=== PATIENT | male | born 1945 | race Caucasian/White ===

== ENCOUNTER 2016-10-18 17:36 | Inpatient (IN) ==
[2016-10-18] MEDS ORDERED: ONDANSETRON 4 MG/2 ML VIAL IVP PRN (19:29)
[2016-10-18] MEDS ORDERED: LIDOCAINE W/ SODIUM BICARB 0.5 ML SYR SUBD PRN (19:29)
[2016-10-18] MEDS ORDERED: Magnesium Sulfate 1gm (Premix) 1 GM/100 ML BAG IV ONE (19:29)
[2016-10-18] MEDS ORDERED: NORMAL SALINE 10 ML SYRINGE FLUSH IVP PRN (19:29)
[2016-10-18] MEDS ORDERED: HYDROmorphone 2 MG/1 ML IVP PRN (19:36)
[2016-10-18] MEDS ORDERED: NORMAL SALINE 10 ML SYRINGE FLUSH IVP ONE ×2 (19:51→21:17)
[2016-10-18] MEDS: Sodium Chloride 0.9% 1,000 ML PRIMARY IV SCH (20:00)
--- NOTE | 2016-10-18 20:04 | PDOC ---
HPI - History of Present Illness Chief Complaint: Right hip fracture secondary to fall History of Present Illness: Is a very nice 71-year-old gentleman who was accepted in transfer from [place] after he sustained a fall Dr. Henderson was also contacted and agreed to take the patient for right hip fracture repair apparently the patient tried to throw trash bag lost balance off his cane fell EMS brought him to the ER in [place] and he was found to have a non-displaced intertrochanteric fracture of the right hip. 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 and cervical spine Surgical History: Cervical fusion and lumbar fusion in February 2015 had a colonoscopy in 2009 and EGD side neck and spine surgery in 1977 and the back surgery was in 2015 he also had a stress test at that time which was normal Family History: Reviewed an Not Pertinent (Mom was alcoholic sister malignant tumor of the pharynx father had heart disease and brother with a seizure) In the Past 12 Months, Have Used or Abuse Any of the Following Substance: None Medication / Allergies Home Medications: Home Medications Medication Instructions Recorded Confirmed Type Allopurinol 300 mg PO BID tab 01/22/14 12/27/15 History Carvedilol 12.5 mg PO BID tab 01/22/14 12/27/15 History Clonidine HCl 0.1 mg PO BID tab 01/22/14 12/27/15 History Doxazosin Mesylate 4 mg PO DAILY tab 01/22/14 12/27/15 History Magnesium [Mag-Tab Sr] 84 mg PO TID tab 01/22/14 12/27/15 History Omeprazole 40 mg PO DAILY cap 01/22/14 12/27/15 History Pravastatin Sodium 20 mg PO DAILY tab 01/22/14 12/27/15 History Acetaminophen [Tylenol] 500 mg PO TID PRN tab 12/07/15 12/27/15 History Diclofenac Sodium 50 mg PO BID tab 12/07/15 12/27/15 History Docusate Sodium [Colace] 100 mg PO DAILY cap 12/07/15 12/27/15 History Furosemide 2 tab PO BID tab 12/07/15 12/27/15 History Iron 18 mg PO QD tab 12/07/15 12/27/15 History [place]-3 Fatty Acids/Fish Oil 1 each PO QD cap 12/07/15 12/27/15 History [[place] 3 1,000 mg Softgel] Vitamin B Complex 1 each PO QD tab 12/07/15 12/27/15 History Hydrocodone Bit/Acetaminophen 1 - 2 tab PO Q4H PRN 12/27/15 12/27/15 History [Hydrocodon-Acetaminophen 5-325] Allergies/Adverse Reactions: Allergies 3 Allergy/AdvReac Type Severity Reaction Status Date / Time No Known Allergies Allergy Unverified 01/19/16 09:20 Review of Systems - Review of Systems All Systems: Reviewed & No Additional Complaints Except as Stated - Integumentary Integumentary: DENIES: Negative System Review, Rash, Superficial Wound, Laceration, Puncture Wound, Foreign Body, Itching, Dryness, Ulcers, Color Changes, Moles, Hair Loss, Hirsutism, Other, See HPI - Ear/Nose Exam Ear/Nose Exam: DENIES: Negative System Review, Decreased Hearing, Tinnitus, Otalgia, Sinus Pain, Rhinorrhea, Congestion, Anosmia, Epistaxis, Other, See HPI - Respiratory Respiratory: DENIES: Negative System Review, Cough, Sputum, Dyspnea At Rest, Dyspnea with Exertion, Pleuritic Pain, Hemoptysis, Wheezing, Other, See HPI - Cardiovascular Cardiovascular: DENIES: Negative System Review, Chest Pain, Edema, Syncope, Palpitations, Orthopnea, Paroxysmal Nocturnal Dyspnea, Other, See HPI - Gastrointestinal Gastrointestinal / Abdominal: DENIES: Negative System Review, Nausea, Vomiting, Diarrhea, Constipation, Abdominal Pain, Bloody Stool, Poor Appetite, Heartburn, Regurgitation, Bloating, Lactose Intolerance, Melena, Bright Red Blood per Rectum, Other, See HPI - Genitourinary Genitourinary: DENIES: Negative System Review, Pain, Burning, Hematuria, Incontinence, Urgency, Hesitant Stream, Decreased Stream, Nocutria, Discharge, Sexual Dysfunction, Other, See HPI - Neurological Neurologic: DENIES: Negative System Review, Headache, Numbness/Paresthesia, Tremors, Weakness, Seizures, Head Trauma, LOC, Dizziness, Confusion, Memory Loss , Difficulty Walking, Incoordination, Other, See HPI Exam - General General Appearance: No Acute Distress, Cooperative - Head Head Exam: Normal Inspection, Normocephalic, Atraumatic - Eye Eye Exam: POSITIVE: Normal Appearance, PERRL, EOMI - Respiratory Respiratory Exam: POSITIVE: Clear to Auscultation - Bilaterally, Breathing Non Labored, Normal To Percussion, Normal to Percussion and Palpation. NEGATIVE: Rales, Rhonci, Crackles - Cardiovascular Cardiovascular Exam: POSITIVE: RRR, No Murmur, No Clicks, No Gallops, No Rubs. NEGATIVE: Bradycardia - GI/Abdominal GI/Abdominal Exam: POSITIVE: Normal Bowel Sounds, Non Tender, Non Distended, No Masses. NEGATIVE: Guarding, Rebound - Extremities Extremities Exam: POSITIVE: No Clubbing Present, No Edema Present Assessment and Plan - Patient Problems (1) Closed right hip fracture Current Visit: Yes Status: Acute Code(s): S72.001A - Fracture of unspecified part of neck of right femur, initial encounter for closed fracture (2) Hypertension Current Visit: Yes Status: Acute Code(s): I10 - Essential (primary) hypertension (3) Diabetes Current Visit: Yes Status: Acute Code(s): E11.9 - Type 2 diabetes mellitus without complications (4) Chronic hyponatremia Current Visit: Yes Status: Acute Code(s): E87.1 - Hypo-osmolality and hyponatremia - Assessment / Plan Additional Assessment/Plan Details: Patient was admitted Dr. Henderson notified of patient's arrival he had asked about a CT scan of his right hip with 3-D reconstruction the electrical cad technician is not here to perform this test tonight they will have to be done tomorrow we will defer to him he to his hypertension continue usual meds. In regard to his anemia he does not have any bloody stools noticed any blood in his stools we will rehydrate him and check his CBC in the morning Acute renal failure most likely prerenal we'll start normal saline 75 an hour repeat labs in the morning. Patient is DO NOT RESUSCITATE Pain control with dilaudid Diabetes check sugars before meals and at bedtime Discuss case with nursing son and patient
[2016-10-18 20:33] LABS: BASOPHILS # (AUTO) 0.03 10*3/UL; BASOPHILS % (AUTO) 0.2 % (0-1); EOSINOPHILS # (AUTO) 0.07 10*3/UL; EOSINOPHILS % (AUTO) 0.5 % (0-8); Hematocrit [HCT] 28.2 % (42.0-52.0); Hemoglobin [HGB] 9.5 g/dL (14.0-18.0); LYMPHOCYTES # (AUTO) 1.59 10*3/uL; MEAN CORPUSCULAR HEMOGLOBIN 30.4 PG (27-31); MEAN CORPUSCULAR HGB CONC 33.7 g/dL (33-37); MEAN CORPUSCULAR VOLUME 90.1 FL (80-90); MEAN PLATELET VOLUME 8.7 FL (7.4-12.2); MONOCYTES # (AUTO) 1.33 10*3/UL (0.3-0.8); MONOCYTES % (AUTO) 8.6 % (5-15); NEUTROPHILS # (AUTO) 12.36 10*3/UL; NEUTROPHILS % (AUTO) 80.1 % (50-80); RED BLOOD COUNT 3.13 10^6/uL (4.70-6.10)
[2016-10-18 20:34] LABS: PLATELET MORPHOLOGY COMMENT NORMAL MORPHOLOGY (NORM); RBC MORPHOLOGY COMMENT NORMAL MORPHOLOGY (NORM); WBC MORPHOLOGY COMMENT NORMAL MORPHOLOGY (NORM)
[2016-10-18 20:43] LABS: BLOOD UREA NITROGEN 18 mg/dL (7-22); MAGNESIUM 1.6 mg/dL (1.6-2.4); SERUM ALBUMIN 3.9 g/dL (3.5-4.8)
[2016-10-18] MEDS ORDERED: Pravastatin Tab 20 MG TAB PO SCH (21:00)
[2016-10-18] MEDS ORDERED: CloNIDine Tab 0.1 MG TABLET PO SCH (21:00)
[2016-10-18] MEDS ORDERED: HYDROmorphone 2 MG/1 ML IVP ONE (21:04)
[2016-10-18] MEDS: CARVEDILOL 12.5 MG TABLET PO SCH (21:33)
--- NOTE | 2016-10-18 21:56 | CONSULT ---
Consult Note - Consult Consult Date: 10/18/16 Primary Care Provider: ANDRES SUÁREZ - History of Present Illness History of Present Illness: Mr. Hodge is a 71-year-old male seen for a right intertrochanteric peritrochanteric hip fracture. He was admitted this evening by Dr. Mcmullen. I have had a chance to review his x-rays of the right hip. These were taken and [place]. Patient slipped and fell while trying to take the garbage out. On exam the patient's right lower extremity is slightly externally rotated. Some swelling throughout the thigh. He has what seems to be a expected amount of discomfort. 5 pounds of [place] traction is currently pending. X-ray review shows that appears to be an intertrochanteric fracture of the right hip. The lesser trochanter is fractured as well. Possible fracture of the greater trochanter. CAT scan of the hip is pending at the time of this dictation. Impression: Right intertrochanteric hip fracture. Plan: Plan is to proceed with fixation of the right hip fracture tomorrow around 1300 hrs. Plan on using a Jackson intramedullary hip screw. The implants will be present. I have a compression hip screw available should I needed. Consent will be obtained. The risks were discussed with the patient including the possibly infection malunion nonunion blood clot and even . Patient apparently has a DO NOT RESUSCITATE order on the chart. Patient's son was present at the time of our discussion. CAT scan of the right hip will be performed in the morning. 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 and cervical spine Surgical History: Cervical fusion and lumbar fusion in February 2015 had a colonoscopy in 2009 and EGD side neck and spine surgery in 1977 and the back surgery was in 2015 he also had a stress test at that time which was normal Family History: Reviewed an Not Pertinent (Mom was alcoholic sister malignant tumor of the pharynx father had heart disease and brother with a seizure) In the Past 12 Months, Have Used or Abuse Any of the Following Substance: None Medication / Allergies Home Medications: Home Medications Medication Instructions Recorded Confirmed Type Allopurinol 300 mg PO BID tab 01/22/14 12/27/15 History Carvedilol 12.5 mg PO BID tab 01/22/14 12/27/15 History Clonidine HCl 0.1 mg PO BID tab 01/22/14 12/27/15 History Doxazosin Mesylate 4 mg PO DAILY tab 01/22/14 12/27/15 History Magnesium [Mag-Tab Sr] 84 mg PO TID tab 01/22/14 12/27/15 History Omeprazole 40 mg PO DAILY cap 01/22/14 12/27/15 History Pravastatin Sodium 20 mg PO DAILY tab 01/22/14 12/27/15 History Acetaminophen [Tylenol] 500 mg PO TID PRN tab 12/07/15 12/27/15 History Diclofenac Sodium 50 mg PO BID tab 12/07/15 12/27/15 History Docusate Sodium [Colace] 100 mg PO DAILY cap 12/07/15 12/27/15 History Furosemide 2 tab PO BID tab 12/07/15 12/27/15 History Iron 18 mg PO QD tab 12/07/15 12/27/15 History [place]-3 Fatty Acids/Fish Oil 1 each PO QD cap 12/07/15 12/27/15 History [[place] 3 1,000 mg Softgel] Vitamin B Complex 1 each PO QD tab 12/07/15 12/27/15 History Hydrocodone Bit/Acetaminophen 1 - 2 tab PO Q4H PRN 12/27/15 12/27/15 History [Hydrocodon-Acetaminophen 5-325] Allergies/Adverse Reactions: Allergies 3 Allergy/AdvReac Type Severity Reaction Status Date / Time No Known Allergies Allergy Unverified 01/19/16 09:20 Exam - Vitals Vital Signs: Vital Signs Temperature 98.4 F Pulse Rate [Pulse Oximeter] 72 Respiratory Rate 20 Blood Pressure [Right Arm] 145/87 Pulse Ox 92 Oxygen Delivery Method Room Air Height 5 ft 9 in Weight 200 lb Results - Labs CBC and BMP: 10/18/16 20:30 10/18/16 20:30
[2016-10-18] MEDS: HYDROmorphone 2 MG/1 ML IVP PRN (23:50)
[2016-10-19] MEDS: HYDROmorphone 2 MG/1 ML IVP PRN ×5 (02:51→19:13)
[2016-10-19] MEDS: Sodium Chloride 0.9% 1,000 ML PRIMARY IV SCH (04:15)
[2016-10-19 04:45] LABS: BASOPHILS # (AUTO) 0.05 10*3/UL; BASOPHILS % (AUTO) 0.4 % (0-1); EOSINOPHILS # (AUTO) 0.31 10*3/UL; EOSINOPHILS % (AUTO) 2.8 % (0-8); Hematocrit [HCT] 23.9 % (42.0-52.0); LYMPHOCYTES # (AUTO) 1.55 10*3/uL; MEAN CORPUSCULAR HEMOGLOBIN 30.5 PG (27-31); MEAN CORPUSCULAR HGB CONC 33.5 g/dL (33-37); MEAN CORPUSCULAR VOLUME 91.2 FL (80-90); MEAN PLATELET VOLUME 9.9 FL (7.4-12.2); MONOCYTES # (AUTO) 1.08 10*3/UL (0.3-0.8); MONOCYTES % (AUTO) 9.6 % (5-15); NEUTROPHILS # (AUTO) 8.23 10*3/UL; NEUTROPHILS % (AUTO) 73.1 % (50-80); RED BLOOD COUNT 2.62 10^6/uL (4.70-6.10)
[2016-10-19 04:49] LABS: BILIRUBIN,URINE NEGATIVE (NEG); CLARITY,URINE CLEAR (CLEAR); COLOR,URINE YELLOW (Y); GLUCOSE, URINE (UA) NEGATIVE (NEG); NITRATE,URINE NEGATIVE (NEG); OCCULT BLOOD,URINE NEGATIVE (NEG); PROTEIN,URINE NEGATIVE (NEG); UROBILINOGEN,URINE 0.2 EU/dL (0.2)
[2016-10-19 04:54] LABS: PLATELET MORPHOLOGY COMMENT NORMAL MORPHOLOGY (NORM); RBC MORPHOLOGY COMMENT NORMAL MORPHOLOGY (NORM); WBC MORPHOLOGY COMMENT NORMAL MORPHOLOGY (NORM)
[2016-10-19 04:55] LABS: URINE SAMPLE TYPE CLEAN CATCH URINE
[2016-10-19 04:55] LABS: BLOOD UREA NITROGEN 15 mg/dL (7-22); BUN/CREATININE RATIO 16.66 (6-20)
[2016-10-19] MEDS ORDERED: NORMAL SALINE 10 ML SYRINGE FLUSH IVP ONE ×2 (06:35→09:00)
[2016-10-19] MEDS ORDERED: diphenhydrAMINE 25 MG CAPSULE PO ONE (08:35)
[2016-10-19] MEDS ORDERED: ACETAMINOPHEN 325 MG TABLET PO ONE (08:35)
[2016-10-19] MEDS ORDERED: methylPREDNISolone 125 MG/2 ML VIAL IVP ONE (08:35)
[2016-10-19] MEDS ORDERED: ACETAMINOPHEN 325 MG TABLET PO SCH (08:45)
[2016-10-19] MEDS ORDERED: ACETAMINOPHEN 500 MG TABLET PO ONE (08:45)
[2016-10-19] MEDS ORDERED: Magnesium Sulfate 1gm (Premix) 1 GM/100 ML BAG IV ONE (08:47)
[2016-10-19] MEDS: CARVEDILOL 12.5 MG TABLET PO SCH ×2 (08:54→21:30)
[2016-10-19] MEDS ORDERED: DOXAZOSIN 2 MG TABLET PO SCH (09:00)
--- NOTE | 2016-10-19 09:02 | EKG ---
[address] [place] [id number] Measurements Intervals [place] Rate: 61 P: 56 [place]: 264 QRS: -21 QRSD: 101 T: 10 QT: 406 QTc: 409 Interpretive Statements SINUS RHYTHM WITH FIRST DEGREE AV BLOCK WITH OCCASIONAL VENTRICULAR PREMATURE COMPLEXES INFERIOR MYOCARDIAL INFARCTION [40+ ms Q WAVE AND/OR ST/T ABNORMALITY IN II/aVF], PROBABLY OLD No previous ECG available for comparison Electronically Signed On 10-19-16 12:22:35 MDT by Keven Bryson MD [email or web address]
[2016-10-19] MEDS ORDERED: LIDOCAINE HCL 2 % 10 ML JELLY URO-JECT TOPICAL ONE (09:17)
--- NOTE | 2016-10-19 09:31 | DI ---
CT Pelvis WO Contrast, CT 3D Rendering w/Image Proc,10/19/2016 7:00 AM: Clinical History: Right hip fracture. Previous Exam: None at this facility. Findings: Multiple helically acquired CT images are obtained through the pelvis without contrast. There is a sl ightly comminuted right intertrochanteric fracture. There is avulsion of the lesser trochanter with 2.6 cm of superior displacement of the avulsed fragme nt. Degenerative changes are noted of the hip joint. There is degenerative endplate changes noted and vacuum disc phenomenon at multiple levels. There is significant facet hypertrophy there is also a right-sided pars defect noted and there is gra de 1 anterolisthesis of L5 on S1. There are laminectomies at the L3 and L4 levels. Peripheral vascular calcifications are noted. Impression: 1. Slightly comminuted intertrochanteric fracture of the right hip. 2. Slightly displaced right lesser trochanteric avulsion with 2.6 cm of superior displacement.
--- NOTE | 2016-10-19 12:26 | PDOC(PROG) ---
Interval History: Patient is doing great and has no complaints no chest pain nausea or vomiting he has a 5 pound traction of his right leg for his right hip fracture he did require blood because of drop in hemoglobin of 8 after hydration Objective : Data - Labs CBC and BMP: 10/19/16 04:11 10/19/16 04:11 Objective : Exam - General General Appearance: Cooperative - Head Head Exam: Normal Inspection, Normocephalic, Atraumatic - Respiratory Respiratory Exam: Clear to Auscultation - Bilaterally, Breathing Non Labored, Normal To Percussion, Normal to Percussion and Palpation - Cardiovascular Cardiovascular Exam: RRR, No Murmur, No Clicks, No Gallops - GI/Abdominal GI/Abdominal Exam: Normal Bowel Sounds, Soft - Extremities Extremities Exam: No Clubbing Present, No Edema Present Assessment and Plan - Patient Problems (1) Closed right hip fracture Current Visit: Yes Status: Acute Code(s): S72.001A - Fracture of unspecified part of neck of right femur, initial encounter for closed fracture (2) Hypertension Current Visit: Yes Status: Acute Code(s): I10 - Essential (primary) hypertension (3) Diabetes Current Visit: Yes Status: Acute Code(s): E11.9 - Type 2 diabetes mellitus without complications (4) Chronic hyponatremia Current Visit: Yes Status: Acute Code(s): E87.1 - Hypo-osmolality and hyponatremia - Assessment / Plan Additional Assessment/Plan Details: #1 right hip fracture deferred to orthopedic surgery patient is scheduled for surgery this afternoon. #2 anemia I don't have a source for his low hemoglobin I did speak to Dr. Flynn which showed things that might be some mild blood in his thigh nevertheless to optimize him for surgery we transfused 2 units of packed red blood cells premedicated him and also given him Lasix in between units. He is also on 2 alpha blockers and beta wesley and Lasix at home there is no history of congestive heart failure patient does not know why he is on a 4 blood pressure medications. His EKG shows sinus rhythm with first-degree AV block Q-wave in the inferior leads. The patient states that he did have a stress test when he had lower back surgery last year and that was negative per him I was not able to find it in the records. The patient has no chest pain nausea or vomiting first-degree AV block on EKG and negative troponin he is at the low to moderate risk for perioperative complication considering his inferior Q waves and the and the inferior leads hyponatremia which we are trying to correct he will proceed with surgery since he has a broken hip and hopefully he will do fine we will see him postop
[2016-10-19 12:54] LABS: BLOOD UREA NITROGEN 15 mg/dL (7-22); BUN/CREATININE RATIO 16.66 (6-20); SERUM ALBUMIN 3.6 g/dL (3.5-4.8)
[2016-10-19] MEDS ORDERED: ROCURONIUM 10 MG/1 ML - 5 ML VIAL IVP ONE (13:03)
[2016-10-19] MEDS ORDERED: SUCCINYLCHOLINE CHLORIDE 20 MG/1 ML - 10 ML ONE (13:04)
[2016-10-19] MEDS ORDERED: MIDAZOLAM 5 MG/1 ML ONE (13:05)
[2016-10-19] MEDS ORDERED: fentaNYL Inj 100 MCG/2 ML VIAL ONE (13:05)
[2016-10-19] MEDS ORDERED: Propofol 200 MG/20 ML VIAL IV ONE (13:06)
[2016-10-19] MEDS ORDERED: KETAMINE 100 MG/1 ML - 5 ML ONE (13:06)
[2016-10-19] MEDS ORDERED: Lactated Ringers 1,000 ML PRIMARY IV ONE (13:08)
[2016-10-19 13:49] LABS: BASOPHILS # (AUTO) 0.02 10*3/UL; BASOPHILS % (AUTO) 0.2 % (0-1); EOSINOPHILS # (AUTO) 0.02 10*3/UL; EOSINOPHILS % (AUTO) 0.2 % (0-8); Hematocrit [HCT] 28.3 % (42.0-52.0); Hemoglobin [HGB] 9.4 g/dL (14.0-18.0); LYMPHOCYTES # (AUTO) 0.88 10*3/uL; MEAN CORPUSCULAR HEMOGLOBIN 30.3 PG (27-31); MEAN CORPUSCULAR HGB CONC 33.2 g/dL (33-37); MEAN CORPUSCULAR VOLUME 91.3 FL (80-90); MEAN PLATELET VOLUME 9.3 FL (7.4-12.2); MONOCYTES # (AUTO) 0.26 10*3/UL (0.3-0.8); NEUTROPHILS # (AUTO) 12.12 10*3/UL; NEUTROPHILS % (AUTO) 90.8 % (50-80)
[2016-10-19] MEDS ORDERED: ceFAZolin Inj 2gm (Premix) 2 GM/50 ML BAG IV ONE (13:53)
[2016-10-19 14:17] LABS: PLATELET MORPHOLOGY COMMENT NORMAL MORPHOLOGY (NORM); RBC MORPHOLOGY COMMENT NORMAL MORPHOLOGY (NORM); WBC MORPHOLOGY COMMENT SEE COMMENTS (NORM)
[2016-10-19] MEDS ORDERED: Sodium Chloride 0.9% 2,000 ML ONE (15:29)
[2016-10-19] MEDS ORDERED: HEPARIN 10,000 UNIT/1 ML ONE (15:30)
[2016-10-19] MEDS ORDERED: Sodium Chloride 0.9% 500 ML ONE (17:02)
[2016-10-19] MEDS ORDERED: BUPivacaine Inj 0.5% PF (5mg/ml) 10ml vial ONE (17:19)
--- NOTE | 2016-10-19 18:30 | CRNA.PROGR ---
Anesthesia Time - - Start date: 10/19/16 End date: 10/19/16 - Procedure/Recovery Time Anesthesia : Time In: 13:58 Anesthesia : Time Out: 18:13 Anesthesia : Total Time: 255 - Total Anesthesia Time Total Anesthesia Time (minutes): 255 - Other Weight: 90.718 kg Height: 5 ft 9 in Body Mass Index (BMI): 29.5 Physical Status: P3 (ASCVD, HTN,DM type 2, Anemia)
--- NOTE | 2016-10-19 18:31 | CRNA.PROGR ---
Anesthesia Recovery Phase I - Post Anesthesia Evaluation Patient's Condition on Arrival in Phase I: Stable Patient's Condition on Arrival in Phase II: Stable Pain Level: 3
[2016-10-19] MEDS ORDERED: ATROPINE SULFATE 0.4 MG/1 ML VIAL IVP PRN (18:43)
[2016-10-19] MEDS ORDERED: NORMAL SALINE 10 ML SYRINGE FLUSH IVP PRN (18:43)
[2016-10-19] MEDS ORDERED: Ondansetron ODT Tab 8 MG TAB PO PRN (18:43)
[2016-10-19] MEDS ORDERED: ONDANSETRON 4 MG/2 ML VIAL IVP PRN ×2 (18:43→19:38)
[2016-10-19] MEDS ORDERED: fentaNYL Inj 100 MCG/2 ML VIAL IVP PRN (18:43)
[2016-10-19] MEDS ORDERED: Lactated Ringers 1,000 ML PRIMARY IV SCH (18:45)
[2016-10-19] MEDS ORDERED: HYDROmorphone 2 MG/1 ML ONE (18:45)
--- NOTE | 2016-10-19 18:48 | ORTHO.OP ---
- - -: See Dictated Operative Report Surgery Date: 10/19/16 Preoperative Diagnosis: intertrochanteric hip fracture right Postoperative Diagnosis: same Surgeon: Anita Henderson MD [employer] Worker: LETTY Payan Anesthesia Provider: Lidia Lewis CRNA Anesthesia Type: General Estimated Blood Loss (mL): 400 Fluids: 1400 crystalloid. 2 units prbcs. 250 cc of orthopat Operative Summary: to recovery room stable
[2016-10-19] MEDS ORDERED: MORPHINE SULFATE 2 MG/1 ML IVP PRN (19:38)
[2016-10-19] MEDS ORDERED: FUROSEMIDE 10 MG/1 ML - 2 ML VIAL IVP ONE (20:41)
[2016-10-19] MEDS: oxyCODONE/APAP 7.5/325 Tab 1 TAB TAB PO PRN ×2 (21:27→23:02)
[2016-10-19] MEDS: Pravastatin Tab 20 MG TAB PO SCH (21:30)
[2016-10-19] MEDS: DOCUSATE 100 MG CAPSULE PO SCH (21:30)
[2016-10-19] MEDS: D5-1/2NS + 20mEq KCL 1,000 ML PRIMARY IV SCH (21:39)
[2016-10-19] MEDS: ceFAZolin Inj 2gm (Premix) 2 GM/50 ML BAG IV SCH (23:51)
[2016-10-20] MEDS: oxyCODONE/APAP 7.5/325 Tab 1 TAB TAB PO PRN ×4 (03:54→19:29)
[2016-10-20 04:50] LABS: BASOPHILS # (AUTO) 0.01 10*3/UL; BASOPHILS % (AUTO) 0.1 % (0-1); EOSINOPHILS # (AUTO) 0.01 10*3/UL; EOSINOPHILS % (AUTO) 0.1 % (0-8); Hematocrit [HCT] 25.8 % (42.0-52.0); Hemoglobin [HGB] 8.6 g/dL (14.0-18.0); LYMPHOCYTES # (AUTO) 1.42 10*3/uL; MEAN CORPUSCULAR HEMOGLOBIN 29.9 PG (27-31); MEAN CORPUSCULAR HGB CONC 33.3 g/dL (33-37); MEAN CORPUSCULAR VOLUME 89.6 FL (80-90); MEAN PLATELET VOLUME 10.3 FL (7.4-12.2); MONOCYTES # (AUTO) 1.55 10*3/UL (0.3-0.8); MONOCYTES % (AUTO) 9.6 % (5-15); NEUTROPHILS # (AUTO) 13.06 10*3/UL; RED BLOOD COUNT 2.88 10^6/uL (4.70-6.10)
[2016-10-20 05:04] LABS: BLOOD UREA NITROGEN 18 mg/dL (7-22)
[2016-10-20 05:07] LABS: PLATELET MORPHOLOGY COMMENT NORMAL MORPHOLOGY (NORM); RBC MORPHOLOGY COMMENT NORMAL MORPHOLOGY (NORM); WBC MORPHOLOGY COMMENT NORMAL MORPHOLOGY (NORM)
--- NOTE | 2016-10-20 07:16 | CRNA.PROGR ---
Anesthesia Note - Progress Notes Anesthesia Progress Note: CBC and BMP 10/20/16 03:53 10/20/16 03:53 Awake and alert. Sitting up being assessed by nursing staff Cheerful, mentation clear and apropriate. Urine output per pacheco light connor and adequate amount. Denies nausea. States pain relief is acceptable. Still anemic by labs but hemodynamically stable per mentation and vital signs. Vital Signs (24 hrs) Temp Pulse Pulse Resp BP BP BP 10/20/16 04:34 10/20/16 03:49 99.0 F 76 20 119/82 10/20/16 01:00 99.6 F 54 L 18 125/75 10/19/16 22:00 99.1 F 84 18 106/66 10/19/16 21:00 99.1 F 83 18 140/86 10/19/16 20:00 99.1 F 78 123/59 10/19/16 19:20 98.3 F 73 14 129/81 10/19/16 19:10 98 F 73 14 153/108 10/19/16 19:00 98 F 77 20 138/88 10/19/16 18:50 77 14 153/103 10/19/16 18:40 97.7 F 74 14 153/93 10/19/16 18:30 71 14 185/81 10/19/16 18:25 64 14 170/91 10/19/16 18:20 97.4 F 68 10 L 159/81 10/19/16 18:10 97.4 F 58 L 10 L 148/102 10/19/16 15:30 97.5 F 58 L 10 L 120/78 10/19/16 14:37 98.2 F 57 L 14 115/74 10/19/16 13:55 98.6 F 71 15 156/85 10/19/16 13:53 98.5 F 69 16 148/78 10/19/16 13:35 98.5 F 66 15 146/84 10/19/16 13:26 99 F 64 12 144/84 10/19/16 13:25 99.0 F 63 13 146/84 10/19/16 13:00 98.6 F 67 14 151/81 10/19/16 12:11 99.1 F 66 18 121/49 10/19/16 11:39 98.6 F 68 17 142/65 10/19/16 11:29 99.6 F 65 18 110/56 10/19/16 11:14 98.6 F 65 17 142/65 10/19/16 11:00 66 10/19/16 10:59 99.6 F 60 18 142/65 10/19/16 10:58 99.4 F 64 18 134/90 10/19/16 10:43 98.1 F 70 18 146/80 Pulse Ox 10/20/16 04:34 94 10/20/16 03:49 96 10/20/16 01:00 95 10/19/16 22:00 96 10/19/16 21:00 97 10/19/16 20:00 98 10/19/16 19:20 97 10/19/16 19:10 97 10/19/16 19:00 98 10/19/16 18:50 99 10/19/16 18:40 97 10/19/16 18:30 97 10/19/16 18:25 96 10/19/16 18:20 96 10/19/16 18:10 96 10/19/16 15:30 98 10/19/16 14:37 95 10/19/16 13:55 95 10/19/16 13:53 91 10/19/16 13:35 91 10/19/16 13:26 96 10/19/16 13:25 96 10/19/16 13:00 95 10/19/16 12:11 96 10/19/16 11:39 96 10/19/16 11:29 93 10/19/16 11:14 93 10/19/16 11:00 10/19/16 10:59 92 10/19/16 10:58 95 10/19/16 10:43 95 Will need more RBC's nest couple days most likely. No apparent anesthetic difficulties.
[2016-10-20] MEDS: D5-1/2NS + 20mEq KCL 1,000 ML PRIMARY IV SCH (07:46)
--- NOTE | 2016-10-20 08:30 | ORTHO.PROG ---
Last Taken Vital Signs: Vital Signs - Last Taken Temperature 98.8 F 10/20/16 08:20 Pulse Rate 84 10/20/16 08:20 Respiratory Rate 16 10/20/16 08:20 Blood Pressure 123/77 10/20/16 08:20 Pulse Ox 94 10/20/16 08:20 Subjective: Mr. Hodge is actually looking pretty good this morning. He sitting up in bed with much better color. He is not reporting much pain. Nurses changed his dressing earlier this morning on his hip. Objective: Vital signs are stable patient is afebrile. Right lower extremity is well aligned. Dressings are intact. Hemoglobin and hematocrit 8.6 and 25.8. Assessment: Impression is doing well postop day 1 from fixation of right hip fracture. Patient's bone was extremely soft. Plan: Plan is to have in transfer from bed to chair and chair to bed. Keep him toe- touch weightbearing for probably 6-8 weeks. I am concerned about the soft nature of his bone. I will check on him later today.
[2016-10-20] MEDS: ceFAZolin Inj 2gm (Premix) 2 GM/50 ML BAG IV SCH (08:39)
[2016-10-20] MEDS: DOCUSATE 100 MG CAPSULE PO SCH ×2 (08:39→21:40)
[2016-10-20] MEDS: CARVEDILOL 12.5 MG TABLET PO SCH ×2 (08:39→21:40)
--- NOTE | 2016-10-20 08:47 | DI ---
XR HIP COMPLETE MIN 2VW U/L,10/19/2016 6:26 PM: Clinical History: The projection internal fixation of the right hip. Previous Exam: None at this facility. Findings: AP and crosstable lateral views of the right hip demonstrate a new dynamic compression screw. There i s near-anatomic alignment of the right intertrochanteric fracture. There is a stable avulsion of the lesser trochanter. Impression: Successful dynamic screw fixation of a right intertrochanteric fracture.
--- NOTE | 2016-10-20 10:54 | PDOC(PROG) ---
Interval History: He is doing great today postop day 1 he does have some right rib cage pain that he noticed while he moves may be suspicious that he sustained this during his fall we will follow-up with chest x-ray. Objective : Data - Labs CBC and BMP: 10/20/16 03:53 10/20/16 03:53 Objective : Exam - General General Appearance: Cooperative - Respiratory Respiratory Exam: Clear to Auscultation - Bilaterally, Breathing Non Labored, Normal To Percussion - Cardiovascular Cardiovascular Exam: RRR, No Murmur, No Clicks - GI/Abdominal Additional GI/Abdominal Exam Details: (The lower right rib cage pain on palpation Assessment and Plan - Patient Problems (1) Closed right hip fracture Current Visit: Yes Status: Acute Comment: Postop day 1 deferred to orthopedic surgery PT and OT I did speak with the patient he said he will continue PT and OT and then would like to transition to the [facility] for inpatient PT and OT because his house is right next to it also family members in the room son which agreed with the his father I let nursing know Code(s): S72.001A - Fracture of unspecified part of neck of right femur, initial encounter for closed fracture (2) Hypertension Current Visit: Yes Status: Acute Comment: Controlled Code(s): I10 - Essential (primary) hypertension (3) Diabetes Current Visit: Yes Status: Acute Comment: Check hemoglobin A1c Code(s): E11.9 - Type 2 diabetes mellitus without complications (4) Chronic hyponatremia Current Visit: Yes Status: Chronic Comment: Back to normal at 130 Code(s): E87.1 - Hypo-osmolality and hyponatremia
[2016-10-20 11:11] LABS: HEMOGLOBIN A1C 5.36 % (4.2-6.0)
--- NOTE | 2016-10-20 15:47 | PT.PROG ---
Progress Note Progress Note: S: Rigo participated in an OT evaluation prior to PT tx. Pt was up in chair upon PT arrival. O: Treatment consisted of: sit to stand transfer with mod A x 2 from a seated to standing position with max VC to do no more than TTWB on the right. Once standing, pt utilized a AIRPLANE TECHNICIAN x 2 on walker and pivoted on his LLE with min A x 2 to perform stand pivot transfer to edge of bed. Pt required mod A x 2 to go from EOB to supine and required max A x 2 to scoot up in bed. Bed alarm set and call light within reach. A: Pt demonstrated improved stand pivot transfer as he was able to utilize walker and scoot with L foot - abided by WB precautions. Pt struggles with transfers secondary to BUE and LLE weakness. P: continue per POC.
--- NOTE | 2016-10-20 17:44 | DI ---
EXAM: XR Chest, 2 Views CLINICAL HISTORY: Physician Notes: Tech Comments: TECHNIQUE: Frontal and lateral views of the chest. COMPARISON: Chest x-ray 10/18/16 FINDINGS: Lungs: Reduced lung volumes with accentuation of the central vasculature/boone. Pleural space: Unremarkable. No pneumothorax. Heart: Large mediastinal silhouette. Bones/joints: No acute fracture. Upper abdomen: Gaseous distension of bowel. Other findings: Two frontal and 2 lateral views of the chest. IMPRESSION: Reduced lung volumes with accentuation of the central vasculature/boone.
[2016-10-20] MEDS: Pravastatin Tab 20 MG TAB PO SCH (21:40)
[2016-10-21] MEDS: oxyCODONE/APAP 7.5/325 Tab 1 TAB TAB PO PRN ×5 (01:20→18:11)
[2016-10-21 04:47] LABS: BASOPHILS # (AUTO) 0.02 10*3/UL; BASOPHILS % (AUTO) 0.1 % (0-1); EOSINOPHILS # (AUTO) 0.33 10*3/UL; EOSINOPHILS % (AUTO) 2.3 % (0-8); Hematocrit [HCT] 21.7 % (42.0-52.0); Hemoglobin [HGB] 7.2 g/dL (14.0-18.0); LYMPHOCYTES # (AUTO) 1.97 10*3/uL; MEAN CORPUSCULAR HEMOGLOBIN 30.1 PG (27-31); MEAN CORPUSCULAR HGB CONC 33.2 g/dL (33-37); MEAN CORPUSCULAR VOLUME 90.8 FL (80-90); MEAN PLATELET VOLUME 9.8 FL (7.4-12.2); MONOCYTES # (AUTO) 1.65 10*3/UL (0.3-0.8); MONOCYTES % (AUTO) 11.4 % (5-15); NEUTROPHILS # (AUTO) 10.39 10*3/UL; NEUTROPHILS % (AUTO) 72.1 % (50-80); RED BLOOD COUNT 2.39 10^6/uL (4.70-6.10)
[2016-10-21 04:57] LABS: BLOOD UREA NITROGEN 22 mg/dL (7-22); BUN/CREATININE RATIO 24.44 (6-20)
[2016-10-21 05:00] LABS: PLATELET MORPHOLOGY COMMENT NORMAL MORPHOLOGY (NORM); RBC MORPHOLOGY COMMENT SEE COMMENTS (NORM); WBC MORPHOLOGY COMMENT NORMAL MORPHOLOGY (NORM)
[2016-10-21] MEDS ORDERED: ACETAMINOPHEN 325 MG TABLET PO ONE (05:16)
[2016-10-21] MEDS ORDERED: Sodium Chloride 0.9% 500 ML PRIMARY IV ONE (05:16)
[2016-10-21] MEDS ORDERED: diphenhydrAMINE 25 MG CAPSULE PO ONE (05:16)
--- NOTE | 2016-10-21 09:36 | ORTHO.PROG ---
Last Taken Vital Signs: Vital Signs - Last Taken Temperature 99.6 F 10/21/16 09:13 Pulse Rate 83 10/21/16 09:13 Respiratory Rate 18 10/21/16 09:13 Blood Pressure 108/76 10/21/16 09:13 Pulse Ox 95 10/21/16 09:13 Subjective: Mr. Hodge is sitting up in bed. He looks good this morning. His blood count and drift a little bit so Dr. So's ordered some blood for him this morning. He is currently receiving that. He had some rib pain yesterday. Chest x-ray was ordered. He is not complaining of much hip pain. Objective: Vital signs are stable. He has a 99 6 temp blood pressures have been steady. Examination reveals his right lower extremity to be well aligned. There is little bit of scant blood coming from the distal incision. I changed that dressing and applied an ABD pad. His right thigh is more supple than it was preoperatively. Hemoglobin and hematocrit is 7.1 and 21.7. Assessment: Impression is postop day 2 status post rodding for comminuted peritrochanteric hip fracture. Patient seems to be doing well. He is slightly anemic and is receiving couple units of blood today. Plan: Plan is to have therapy get him up today. I spoke with Dr. Sorenson about the patient's anticoagulant. Because he is receiving blood, we have decided to hold off on his anticoagulant for today. I will continue to follow him.
[2016-10-21] MEDS: DOCUSATE 100 MG CAPSULE PO SCH ×2 (09:44→21:00)
[2016-10-21] MEDS: CARVEDILOL 12.5 MG TABLET PO SCH ×2 (09:44→21:00)
[2016-10-21] MEDS ORDERED: BISACODYL 10 MG SUPPOSITORY RECTAL ONE (09:57)
[2016-10-21] MEDS ORDERED: Fleet Enema w/Mineral Oil 133ml RECTAL PRN (09:58)
[2016-10-21] MEDS ORDERED: MAGNESIUM 400 MG/5 ML - 30 ML (MILK OF MAGNESIA) PO ONE (10:00)
--- NOTE | 2016-10-21 10:40 | PT.PROG ---
Progress Note Progress Note: S: Rigo states that he is not feeling too well today - per nursing, pt's blood count is low and pt is receiving blood transfusion but they would still like us to help with transferring pt to bedside commode as they are removing the catheter then to the chair. Dr. Henderson would like for pt to be fitted for below the knee compression stockings. O: Treatment consisted of: supine to seated EOB transfer with mod A x2, pt stated that he felt a little dizzy sitting EOB - remained sitting for 2 minutes with CGA x 1 for safety before sit to stand transfer with min A x2, bed raises and with max VC for reminder of no more than TTWB on the right f/b a pivot transfer to bedside commode. Following use of bedside commode, pt required 2 attempts to perform a sit to stand from commode with mod A x 2 f/b a pivot transfer to the chair. Once up in chair, below the knee compression stockings were placed on the pt along with a chair alarm and call light was placed within reach. A: Pt demonstrated ability to follow WB precautions with transfers but did have a difficult time with pivoting on the left foot partly due to the day worker on his socks and the commode and chair both had to be moved closer in order for transfers to be completed safely. Discussed with nursing staff about having pt up in chair until at least lunch time if he is able to tolerate it. P: Per POC to address established goals.
--- NOTE | 2016-10-21 12:40 | PDOC(PROG) ---
Date and Time of Service: 10/21/2016, 1235 Interval History: No chest pain, shortness breath, nausea or vomiting. Hip pain is well controlled and seems worse when up and about. Has been on hydrocodone long- term in relation to back and neck surgeries in the past. States his biggest issue right now is constipation. His blood counts were low and he is getting 2 units of blood transfused. Objective : Data - Labs CBC and BMP: 10/21/16 04:30 10/21/16 04:30 Objective : Exam - General General Appearance: No Acute Distress, Cooperative Additional General Exam Details: Vital Signs (24 hrs) Temp Pulse Pulse Resp BP BP Pulse Ox 10/21/16 12:04 99.5 F 81 16 156/75 93 10/21/16 11:45 99.5 F 81 16 146/82 92 10/21/16 11:30 99.0 F 78 16 134/94 93 10/21/16 11:19 100.2 F H 73 16 126/75 96 10/21/16 11:16 99.0 F 69 16 126/71 90 10/21/16 10:52 99.0 F 69 16 126/71 91 10/21/16 10:40 99.9 F H 87 16 123/72 95 10/21/16 09:40 98.9 F 74 20 123/81 95 10/21/16 09:13 99.6 F 83 18 108/76 95 10/21/16 08:54 98.9 F 73 16 117/57 93 10/21/16 08:36 98.2 F 72 16 121/72 98 10/21/16 08:24 98.4 F 74 16 113/64 93 10/21/16 08:21 98.4 F 74 16 113/74 93 10/21/16 08:17 98.9 F 71 16 133/83 95 10/21/16 05:23 94 10/21/16 04:41 97.8 F 78 16 137/69 94 10/21/16 00:04 97.5 F 85 18 134/79 93 10/20/16 20:58 97.3 F 75 16 123/57 93 10/20/16 19:00 20 10/20/16 16:55 97.6 F 72 16 105/82 95 10/20/16 13:00 97.5 F 79 18 137/76 96 - Eye Eye Exam: No Scleral Icterus - ENT ENT Exam: Mucous Membranes Moist - Respiratory Respiratory Exam: Clear to Auscultation - Bilaterally, Breathing Non Labored - Cardiovascular Cardiovascular Exam: RRR, No Murmur, No Clicks, No Gallops, No Rubs, No JVD - GI/Abdominal GI/Abdominal Exam: Normal Bowel Sounds, Non Tender, Non Distended, Soft - Extremities Extremities Exam: No Clubbing Present, No Cyanosis Present Additional Extremities Exam Details: Swelling in the right hip, incision is dressed, dressing is clean, dry, intact - Neurological Neurological Exam: Alert, Oriented x 3, No Facial Droop, Speech Intact / Clear Assessment and Plan - Patient Problems (1) Postoperative anemia Current Visit: Yes Status: Acute Code(s): D64.9 - Anemia, unspecified (2) Hypertension Current Visit: Yes Status: Acute Code(s): I10 - Essential (primary) hypertension Qualifiers: Hypertension type: essential hypertension Qualified Code(s): I10 - Essential (primary) hypertension (3) Diabetes Current Visit: Yes Status: Acute Code(s): E11.9 - Type 2 diabetes mellitus without complications Qualifiers: Diabetes mellitus type: type 2 Diabetes mellitus complication status: without complication Diabetes mellitus penitentiary insulin use: without senior financial use Qualified Code(s): E11.9 - Type 2 diabetes mellitus without complications (4) Closed right hip fracture Current Visit: Yes Status: Acute Code(s): S72.001A - Fracture of unspecified part of neck of right femur, initial encounter for closed fracture Qualifiers: Encounter type: subsequent encounter Fracture healing: with routine healing Qualified Code(s): S72.001D - Fracture of unspecified part of neck of right femur, subsequent encounter for closed fracture with routine healing (5) Chronic hyponatremia Current Visit: Yes Status: Chronic Code(s): E87.1 - Hypo-osmolality and hyponatremia - Assessment / Plan Additional Assessment/Plan Details: Admits for constipation issues. Transfuse 2 units packed red blood cells, check hemoglobin and hematocrit in the morning. Continue PT and OT. Hold off on DVT prophylaxis today given bleeding issues. Once stabilized, resume either Lovenox or Xarelto for 20-35 days postop. Working towards potential therapy bed/skilled bed in [place]. Resume allopurinol for gout. We'll resume clonidine for hypertension.
[2016-10-21] MEDS ORDERED: MAGNESIUM CITRATE 296 ML SOLUTION PO ONE (18:23)
[2016-10-21] MEDS: Pravastatin Tab 20 MG TAB PO SCH (21:00)
[2016-10-21] MEDS: CloNIDine Tab 0.1 MG TABLET PO SCH (21:00)
[2016-10-22 05:30] LABS: BASOPHILS # (AUTO) 0.02 10*3/UL; BASOPHILS % (AUTO) 0.1 % (0-1); EOSINOPHILS # (AUTO) 0.19 10*3/UL; EOSINOPHILS % (AUTO) 1.3 % (0-8); Hematocrit [HCT] 29.7 % (42.0-52.0); LYMPHOCYTES # (AUTO) 1.68 10*3/uL; MEAN CORPUSCULAR HEMOGLOBIN 30.4 PG (27-31); MEAN CORPUSCULAR HGB CONC 33.7 g/dL (33-37); MEAN CORPUSCULAR VOLUME 90.3 FL (80-90); MEAN PLATELET VOLUME 9.9 FL (7.4-12.2); MONOCYTES # (AUTO) 1.78 10*3/UL (0.3-0.8); MONOCYTES % (AUTO) 12.3 % (5-15); NEUTROPHILS # (AUTO) 10.68 10*3/UL; NEUTROPHILS % (AUTO) 74.1 % (50-80); RED BLOOD COUNT 3.29 10^6/uL (4.70-6.10)
[2016-10-22 05:43] LABS: BLOOD UREA NITROGEN 17 mg/dL (7-22); BUN/CREATININE RATIO 21.25 (6-20)
[2016-10-22 06:11] LABS: PLATELET MORPHOLOGY COMMENT NORMAL MORPHOLOGY (NORM); RBC MORPHOLOGY COMMENT NORMAL MORPHOLOGY (NORM); WBC MORPHOLOGY COMMENT NORMAL MORPHOLOGY (NORM)
[2016-10-22] MEDS ORDERED: OMEPRAZOLE 40 MG CAPSULE PO SCH (07:00)
[2016-10-22] MEDS: CloNIDine Tab 0.1 MG TABLET PO SCH (08:01)
[2016-10-22] MEDS: oxyCODONE/APAP 7.5/325 Tab 1 TAB TAB PO PRN ×2 (08:01→13:51)
[2016-10-22] MEDS: DOCUSATE 100 MG CAPSULE PO SCH (08:01)
[2016-10-22] MEDS: CARVEDILOL 12.5 MG TABLET PO SCH (08:02)
--- NOTE | 2016-10-22 08:48 | ORTHO.PROG ---
Last Taken Vital Signs: Vital Signs - Last Taken Temperature 97 F 10/22/16 07:51 Pulse Rate 48 L 10/22/16 07:51 Respiratory Rate 19 10/22/16 07:51 Blood Pressure 106/54 10/22/16 07:51 Pulse Ox 96 10/22/16 07:51 Subjective: Mr. Hodge is sitting up in a chair this morning. He looks good. He received his blood yesterday. Still complains of some right rib pain. Minimal complaints of hip pain. He had a bowel movement this morning. His posttransfusion blood count is stable. Objective: Vital signs are stable. Patient is afebrile. He is on a half liter of oxygen. Saturation in the mid 90s. Right hip and lower extremity are dressed. No breakthrough bleeding through the knee dressing seen. Hemoglobin and hematocrit 10 and 29.7 Assessment: Impression is postop day 3 from fixation of comminuted peritrochanteric hip fracture. Patient seems stable today. His blood counts corrected nicely. Plan: Plan: We will work on possibly transferring him to the [facility] this week. That is very near his home, probably be more convenient. Anticipate he will be there for a few weeks until he gets stronger. I will continue to follow him along with Dr. Sorenson.
[2016-10-22] MEDS ORDERED: DOCUSATE 100 MG CAPSULE PO SCH (09:00)
[2016-10-22] MEDS ORDERED: ALLOPURINOL 300 MG TABLET PO SCH (09:00)
--- NOTE | 2016-10-22 10:57 | PT.PROG ---
Progress Note Progress Note: S: Randy reports that he has been having stomach pain lately and that he hasn't had much of an appetite because of it. He reports that his pain levels are low and that pain hasn't been much of an issue lately. O: Tx for the RLE included: seated LAQ, 30x; seated hamstring curls, hip ext and bicep curls with red TB, 30xea; long-sit SLR, 30x. Randy was left in hospital chair; bed alarm on and call light within reach. A: Randy tolerated therapy well today with min-mod c/o pain in his. Randy's would benefit from skilled therapy to address strength limitations in his UE and LE in order to assist with transfers. P: Continue POC as tolerated.
--- NOTE | 2016-10-22 12:02 | PDOC(PROG) ---
Date and Time of Service: 10/22/2016, noon Interval History: Patient doing much better. Had 2 bowel movements today. Pain is controlled. Doing okay with therapy, but I agree with their assessment that he will need some skilled therapy. No chest pain and no shortness breath. No nausea or vomiting. Objective : Data - Labs CBC and BMP: 10/22/16 05:10 10/22/16 05:10 Objective : Exam - General General Appearance: No Acute Distress, Cooperative Additional General Exam Details: Vital Signs (24 hrs) Temp Pulse Pulse Pulse Resp BP BP 10/22/16 11:27 98.3 F 60 18 108/66 10/22/16 07:51 97 F 48 L 19 106/54 10/22/16 07:00 60 10/22/16 05:09 10/22/16 05:00 97.8 F 58 L 18 130/77 10/22/16 01:00 98.3 F 56 L 20 128/71 10/21/16 20:13 99.4 F 60 20 148/90 10/21/16 17:00 99.6 F 70 18 154/88 10/21/16 13:39 98.2 F 53 L 16 112/69 10/21/16 13:00 99.2 F 53 L 16 90/62 10/21/16 12:04 99.5 F 81 16 156/75 Pulse Ox 10/22/16 11:27 93 10/22/16 07:51 96 10/22/16 07:00 10/22/16 05:09 93 10/22/16 05:00 98 10/22/16 01:00 95 10/21/16 20:13 96 10/21/16 17:00 96 10/21/16 13:39 91 10/21/16 13:00 90 10/21/16 12:04 93 - Head Head Exam: Normal Inspection, Normocephalic, Atraumatic - Eye Eye Exam: No Scleral Icterus - ENT ENT Exam: Mucous Membranes Moist - Respiratory Respiratory Exam: Clear to Auscultation - Bilaterally, Breathing Non Labored - Cardiovascular Cardiovascular Exam: No Murmur, No Clicks, No Gallops, No Rubs, Bradycardia, No JVD - GI/Abdominal GI/Abdominal Exam: Normal Bowel Sounds, Non Tender, Non Distended, Soft - Extremities Extremities Exam: No Clubbing Present, No Edema Present, No Cyanosis Present Additional Extremities Exam Details: Right thigh is fairly swollen, no significant ecchymosis signs, but definitely swollen compared to the left. Attributable to hip fracture and then repair. - Neurological Neurological Exam: Alert, Oriented x 3, No Facial Droop, Speech Intact / Clear - Psychiatric Psychiatric Exam: Normal Affect, Normal Mood Assessment and Plan - Patient Problems (1) Hypertension Current Visit: Yes Status: Acute Code(s): I10 - Essential (primary) hypertension Qualifiers: Hypertension type: essential hypertension Qualified Code(s): I10 - Essential (primary) hypertension (2) Postoperative anemia Current Visit: Yes Status: Acute Code(s): D64.9 - Anemia, unspecified (3) Diabetes Current Visit: Yes Status: Acute Code(s): E11.9 - Type 2 diabetes mellitus without complications Qualifiers: Diabetes mellitus type: type 2 Diabetes mellitus complication status: without complication Diabetes mellitus terminal press operator insulin use: without terminal press operator use Qualified Code(s): E11.9 - Type 2 diabetes mellitus without complications (4) Closed right hip fracture Current Visit: Yes Status: Acute Code(s): S72.001A - Fracture of unspecified part of neck of right femur, initial encounter for closed fracture Qualifiers: Encounter type: subsequent encounter Fracture healing: with routine healing Qualified Code(s): S72.001D - Fracture of unspecified part of neck of right femur, subsequent encounter for closed fracture with routine healing (5) Chronic hyponatremia Current Visit: Yes Status: Chronic Code(s): E87.1 - Hypo-osmolality and hyponatremia - Assessment / Plan Additional Assessment/Plan Details: Overall today, better. Constipation resolved, will continue bowel regimen as necessary. Given his hemoglobin and hematocrit, I think we could put patient back on DVT prophylaxis for 20-35 days post hip fracture repair, and I think Xarelto may be appropriate here. Patient does state he bruises fairly easily so we'll watch his blood counts over the next couple days and watch the size of his right thigh as well. Continue PT and OT advancement of weightbearing per Dr. Henderson, notes indicate toe-touch weightbearing for the next several weeks. Probably up to [place] sometime this coming week for continued PT and OT. No changes today and antihypertensive medications although I think we may be able to back off on Coreg eventually. He is quite bradycardic. He had cardiac workup done in the past and a good to review that first. He had this done at [facility].
[2016-10-22] MEDS: NORMAL SALINE 10 ML SYRINGE FLUSH IVP PRN (16:04)
[2016-10-22] MEDS ORDERED: Rivaroxaban Tab 10 MG TAB PO SCH (18:00)
[2016-10-22] MEDS ORDERED: HYDROcodone-APAP 5 MG -325 MG TABLET PO PRN (18:04)
[2016-10-22] MEDS ORDERED: Prochlorperazine Edisylate Inj 10 MG in Sodium Chloride 0.9% 500 ML IV ONE (19:21)
--- NOTE | 2016-10-22 20:00 | DI ---
EXAM: XR Abdomen, 1 View CLINICAL HISTORY: Nausea and vomiting. S/P hip pin 10/19/16. : TECHNIQUE: Frontal supine view of the abdomen/pelvis, 3 images. COMPARISON: No relevant prior studies available. FINDINGS: Lower thorax: Imaged lungs are clear. Gastrointestinal tract: Diffuse and prominent small bowel and colonic dilatation. Rectal gas is present. Bones/joints: Multilevel degenerative changes of the lumbar spine. IMPRESSION: Diffuse and prominent small bowel and colonic dilatation, most likely postop ileus.
[2016-10-22] MEDS ORDERED: Sodium Chloride 0.9% 1,000 ML PRIMARY IV ONE (20:35)
[2016-10-22] MEDS ORDERED: LABETALOL 20 MG/4 ML (5 MG/1 ML) SYRINGE IVP PRN (20:43)
--- NOTE | 2016-10-22 22:42 | DI ---
EXAM: XR Abdomen, 1 View CLINICAL HISTORY: NG placement: TECHNIQUE: Frontal supine view of the abdomen/pelvis. COMPARISON: No relevant prior studies available. FINDINGS: Lower thorax: Partially imaged dilated loops of small and large bowel are redemonstrated. This includes dilated colon beneath the right hemidiaphragm. Imaged lungs are clear. Heart size is normal. Stable bilateral hilar prominence. Tubes, lines and devices: Enteric tube tip projects over the gastric body with port over the gastric cardia. IMPRESSION: 1. Enteric tube tip projects over the gastric body with port over the gastric cardia. 2. Dilated loops of colon and small bowel redemonstrated in the upper abdomen.
[2016-10-22] MEDS: KETOROLAC 15 MG/1 ML VIAL IVP PRN (23:36)
[2016-10-23] MEDS: D5-1/2NS + 20mEq KCL 1,000 ML PRIMARY IV SCH ×2 (00:17→08:47)
--- NOTE | 2016-10-23 00:52 | DI ---
EXAM: CT Abdomen and Pelvis Without and With Intravenous Contrast CLINICAL HISTORY: ileus post op hip surgery question free air: TECHNIQUE: Axial computed tomography images of the abdomen and pelvis without and with intravenous contrast. Coronal and sagittal reformats were obtained. COMPARISON: Abdominal radiographs, 10/22/16 and chest x-ray 10/20/14, CT pelvis, 10/19/16 FINDINGS: Lower thorax: Scattered bibasilar dependent atelectasis. ABDOMEN: Liver: Unremarkable. No mass. Gallbladder and bile ducts: Unremarkable. No calcified stones. No ductal dilation. Pancreas: Unremarkable. No mass. No ductal dilation. Spleen: Unremarkable. No splenomegaly. Adrenals: Unremarkable. No mass. Kidneys and ureters: Unremarkable. No solid mass. No obstructing stones. No hydronephrosis. Stomach and bowel: Diffuse fluid-filled dilation of small bowel and colon without clear transition point to suggest obstruction. Findings likely represent postop ileus. Follow-up radiograph should be obtained if suspicion for obstruction. No free air. Colonic interposition. No mucosal thickening. Appendix: Appendix located in the right upper quadrant without evidence of appendicitis. PELVIS: Bladder: Trace air in the urinary bladder, likely secondary to recent instrumentation versus infection. Reproductive: Unremarkable as visualized. ABDOMEN and PELVIS: Intraperitoneal space: No intraperitoneal free air. Trace free fluid in the pelvis. Bones/joints: Prominent fat stranding and small amount of air in the soft tissues lateral to the right hip, likely postsurgical. Interval placement of right femoral intramedullary lionel with trochanteric screw with redemonstration of comminuted right femoral neck fracture. Multilevel degenerative changes of the thoracolumbar spine with levoscoliosis. Vasculature: Moderate scattered atherosclerosis of the abdominal aorta. No aneurysm. Lymph nodes: Unremarkable. No enlarged lymph nodes. Tubes, lines and devices: Enteric tube tip terminates in the gastric fundus. IMPRESSION: 1. No intraperitoneal free air. Colonic interposition. 2. Diffuse fluid-filled dilation of small bowel and colon without clear transition point to suggest obstruction. Findings likely represent postop ileus. Follow-up radiograph should be obtained if clinical suspicion for obstruction. 3. Trace air in the urinary bladder, likely secondary to recent instrumentation versus infection.
[2016-10-23 04:50] LABS: Hematocrit [HCT] 28.5 % (42.0-52.0); Hemoglobin [HGB] 9.6 g/dL (14.0-18.0); MEAN CORPUSCULAR HEMOGLOBIN 30.7 PG (27-31); MEAN CORPUSCULAR HGB CONC 33.7 g/dL (33-37); MEAN CORPUSCULAR VOLUME 91.1 FL (80-90); MEAN PLATELET VOLUME 9.7 FL (7.4-12.2); RED BLOOD COUNT 3.13 10^6/uL (4.70-6.10)
[2016-10-23 05:06] LABS: BLOOD UREA NITROGEN 22 mg/dL (7-22); MAGNESIUM 1.8 mg/dL (1.6-2.4); SERUM ALBUMIN 3.1 g/dL (3.5-4.8)
--- NOTE | 2016-10-23 07:38 | ORTHO.PROG ---
Last Taken Vital Signs: Vital Signs - Last Taken Temperature 98.9 F 10/23/16 06:50 Pulse Rate 73 10/23/16 06:50 Respiratory Rate 18 10/23/16 06:50 Blood Pressure 133/75 10/23/16 06:50 Pulse Ox 96 10/23/16 06:50 Subjective: The patient developed an ileus last night. He has an NG tube in place. States he is feeling much better this morning. Not complaining of much pain at all in his leg. Objective: Vital signs are stable. Patient is afebrile. Still on 1 L of oxygen. Right hip dressings are clean and dry. Able to flex and extend his ankle. Gentle motion of the hip does not seem to be uncomfortable. Hemoglobin and hematocrit 9.6 and 28.5. Assessment: Assessment: Postoperative ileus. Being managed with an NG tube. I think a CAT scan of the belly is pending. Plan: Plan is to continue the NG tube. We'll follow closely with the hospitalist. Continue patient up in chair and remain toe-touch weightbearing. Plan anticoagulation today.
[2016-10-23] MEDS: ENOXAPARIN SODIUM 40 MG/0.4 ML SYRINGE SUBCUT SCH (08:48)
--- NOTE | 2016-10-23 10:53 | PTI REPORT ---
Thank you for the referral of Rigo Hodge. He was seen on 10/20/16 for an inpatient evaluation status post right hip fracture. SUBJECTIVE: The patient is a 71-year-old male who states that on 10/18/2016 he had a fall outside of his place of residence. The patient was identified as having a right hip fracture and did undergo surgical repair yesterday afternoon by Dr. Henderson. Per orders from Dr. Henderson, this patient is to be no more than toe touch weight-bearing and he would like us to do a stand pivot transfer initially due to the patient's poor bone density. The patient states that he is doing well this morning and he is willing to participate with therapy. The patient states that he lives in [place] in a trailer home and states prior to his incident he was using a cane for ambulating short distances. The patient does have a couple of stairs to get into his home and the patient states that he is living by himself. He states prior to this injury he was fairly independent with his ADLs but he does have an extensive surgical history including a previous neck surgery, low back surgery, and shoulder surgery. He states that he was awaiting to get both of his shoulders done as he has had increased difficulty with lifting them up and claims that his right upper extremity strength is very weak and his left lower extremity strength is not much better. PAST MEDICAL HISTORY: Past medical history can be found in the patient's medical record. OBJECTIVE FINDINGS: General observations: The patient is alert and oriented to setting upon PT arrival. The patient was sitting in bed and he did have his son and daughter-in -law present during our evaluation. The patient was on one liter of oxygen. Strength: In a reclined supine position, the patient's bilateral upper extremity strength was tested. Shoulder strength is 2/5, elbow strength is 4/ 5. Left hip strength is 3/5. Knee and ankle strength is 4/5. The right side was not tested secondary to recent surgery. Range of motion: The patient is very limited and can bring his arms to approximately 80 degrees of forward flexion bilaterally. Bed mobility: The patient moved from a supine to seated position with mod assist of two as the patient needed help moving the right lower extremity and help with pulling his trunk into a seated position due to weakness of his bilateral upper extremities. Balance: The patient demonstrated fair seated edge of bed balance with contact guard assist x1 for safety. The patient was able to sit edge of bed x5 minutes and stated that he felt pretty good. Transfers: In the seated position a gait belt was placed around the patient and he was instructed not to put weight on his right lower extremity as we performed a stand pivot transfer from the bed to the chair. Stand pivot transfer was max assist of one. We did have a second person behind just in case , but the patient did fairly well with the transfer. He was able to do approximately 20% of the transfer through that left lower extremity. ASSESSMENT: The patient has fair rehab potential secondary to all of his previous surgeries and his limitations with shoulder motion and strength bilaterally and weakness of his left lower extremity. Problem List: Decreased endurance/activity tolerance Weakness of bilateral upper extremities and left lower extremity Weight-bearing precautions for right lower extremity Short-Term Goals: To be met by discharge from inpatient: Patient will be able to transfer from supine to seated edge of bed with no more than min assist x1. Patient will be able to perform a stand pivot transfer with mod assist x1 from bed to chair or bed to commode. Patient will be able to perform sit to stand transfer with use of the bariatric walker and demonstrate no more than toe touch weight-bearing on his right lower extremity. Long-Term Goals: To be met following discharge from inpatient: Patient will be able to perform transfer from bed to chair with use of bariatric walker and toe touch weight-bearing on the right and no more than contact guard assist x1 for safety. Patient will demonstrate at least 4+/5 left lower extremity strength. Patient will be able to ambulate at least 100 feet with walker and appropriate weight-bearing precautions which at this time are no more than toe touch weight- bearing on the right lower extremity. Patient will be able to ambulate up and down at least three stairs with appropriate weight-bearing precautions, which at this time is toe touch weight- bearing on the right and use of a walker. TREATMENT PLAN: Patient will be seen B.I.D during the week and one time per day over the weekend as an inpatient to work on strengthening of bilateral upper extremities and left lower extremity, working on independence and safety with supine to seated transfer, and improving our transfers for stand pivot transfers and working on sit to stand transfers with bariatric walker, all while following our hip precautions with toe touch weight-bearing on the right. INITIAL TREATMENT: Treatment today consisted of the initial evaluation followed by the patient performing a stand pivot transfer from the bed to the chair. Once in the chair , the patient's feet were reclined. A call light was placed next to the patient and a chair alarm was also placed on the patient. The patient stated that he felt pretty good after the transfer and nursing staff was notified that the patient was left up in chair. [facility]MK[facility]
[2016-10-23] MEDS ORDERED: Magnesium Sulfate 2gm (Premix) 2 GM/50 ML BAG IV ONE (11:21)
--- NOTE | 2016-10-23 12:04 | OTI REPORT ---
Thank you for the referral of Rigo Hodge. He was seen on 10/20/16 for an occupational therapy inpatient evaluation status post right hip fracture. SUBJECTIVE: The patient is a 71-year-old male who fell taking out the garbage. The patient lives in [place]. The patient reports that he lives alone, one block away from the hospital, in a trailer that is 12x58 feet. He reports that prior to admission he had both shoulders involved and was supposed to have shoulder surgery before he fell and hurt his hip. The patient states there are 4-5 steps to the entrance of the home and one step to get into the home; he has hand rails on both sides. The patient states he is going to ask his landlord for a ramp. The patient states that he has arthritis throughout his whole body. The patient has carpet in his bathroom, kitchen, and living room. The patient reports that he has had a lot of falls secondary to not being able to reach with his shoulders and his arthritis. The patient cannot recall how many falls he has had, but he states he has taken quite a few. He does have a tiny bathroom with the washer and dryer in the bathroom. The patient has a tub/ shower combination with a hand held shower hose. He states that he does have one grab bar; however, he probably will need more. The patient does have a low toilet. The patient does have a four wheeled walker and a two wheeled walker at his home, but he says they are too tall. Prior to his fall, the patient did his own laundry and cleaning. He does some light grocery shopping; however, the senior center will deliver more groceries if needed. He does not cook, he goes to the senior center everyday and if he needs to on the weekends he makes a sandwich for lunch. The patient does drive, but he does not do any driving on the highway. The patient started developing double vision a couple of years ago; however, he states when he is driving in town this does not happen. The patient does not have any family around; he does have a neighbor that will help him some. The patient states that he feels somewhat unsafe at home as he does have an electrical heater and there was some water around it and he states his landlord has not fixed this. The patient used to be a very heavy drinker at home; however, currently he states he only has a couple of drinks each night. The patient states when he does drink he drinks Mauricio Tejeda and Coke. The patient does not know his medications; however, he knows he takes 10 prescription medications, 5-6 vitamins, and a stool softener. He reports he is not having any trouble with his swallowing or with liquids. PAST MEDICAL HISTORY: Past medical history can be found in the patient's medical record. OBJECTIVE FINDINGS: General observations: The patient is toe touch weight-bearing secondary to his hip. Range of motion: Today the patient had left shoulder flexion of 20 degrees and right shoulder flexion of 10 degrees; he reports the right shoulder is dislocated. He has range of motion within functional limits in his elbows. Wrists are approximately 50%. Strength: Strength in both shoulders is 1+/5; he is very weak in the shoulders. Elbows and hands are very arthritic. Elbow flexion/extension is 3+/5. Wrist flexion/extension is 3+/5. His strength throughout is very poor. ASSESSMENT: The patient would benefit from skilled occupational therapy to address upper extremity strength for functional use of arms for stand pivot transfers at this point in time. Today the patient was very limited and was in too much pain, but may benefit from further adaptive equipment for dressing, a high rise toilet seat, and a shower chair. The patient will more than likely need to swing while he is here. At this point in time the patient is not safe to go home by himself. He will probably need weeks of rehab before returning home by himself. Prior to this fall, the patient had a lot of falls per his report, and this probably needs to be looked into a little bit further as to whether he can stay home by himself. The patient is limited in what he can do independently at his home and he may need a home evaluation at some point in time to see if he would even be safe to return home. The patient would like to attend outpatient rehab in [place] in a couple of weeks, which is totally feasible. Another concern is that the patient does drink a couple of drinks at night which may contraindicate with his pain medications and safety concerning his falls. Short-Term Goals: To be met by discharge from inpatient: Patient will increase elbow and wrist strength to 4+/5 to increase strength for functional transfers and ADLS. Patient will be able to dress self independently with use of equipment. Patient will be able to complete a toilet transfer independently. Patient will be able to complete a shower transfer independently and shower self with min assist. Patient will be able to complete functional hygiene activities while standing at sink x5 minutes to improve strength and endurance for ADLs. Long-Term Goals: To be met following discharge from inpatient: Patient's goal is to return home, demonstrating independence and safety with all activities of daily living, functional transfers, and functional home activities. TREATMENT PLAN: Patient will be seen B.I.D during the week and one time per day over the weekend as an inpatient to address the above goals and objectives. INITIAL TREATMENT: Treatment today consisted of the initial evaluation followed by a thorough discussion and instructions on ADLs and equipment. Today the patient was just out of surgery and is probably going to take the weekend to recover. On Sunday we will go over adaptive equipment devices. OMKAR
[2016-10-23] MEDS: KETOROLAC 15 MG/1 ML VIAL IVP PRN ×2 (12:08→19:44)
--- NOTE | 2016-10-23 13:48 | PDOC(PROG) ---
Date and Time of Service: 10/23/2016, 1345 Interval History: No completes of chest pain or shortness of breath. Nausea and vomiting significantly improved us and his NG was dropped yesterday. He states that his belly feels much better, and he really wants to try some liquids, he is passing gas. His hip pain is better but movement does make it worse. Objective : Data - Labs CBC and BMP: 10/23/16 04:15 10/23/16 04:15 Additional Lab Results: Laboratory Results 10/18/16 10/18/16 10/18/16 Range/Units 20:30 20:30 20:30 WBC 15.43 H (4.8-10.8) 10^3/uL RBC 3.13 L (4.70-6.10) 10^6/uL Hgb 9.5 L (14.0-18.0) g/dL Hct 28.2 L (42.0-52.0) % MCV 90.1 H (80-90) FL MCH 30.4 (27-31) PG MCHC 33.7 (33-37) g/dL RDW Std Deviation 47.2 (39-50) fL RDW Coeff of [place] 14.8 H (11.5-14.5) % Plt Count 140 (140-350) 10*3/uL MPV 8.7 (7.4-12.2) FL Immature Gran % (Auto) 0.3 (0-5) % Neut % (Auto) 80.1 H (50-80) % Lymph % (Auto) 10.3 (10-50) % [place] % (Auto) 8.6 (5-15) % Eos % (Auto) 0.5 (0-8) % Baso % (Auto) 0.2 (0-1) % Immature Gran # (Auto) 0.05 10*3/UL Neut # (Auto) 12.36 10*3/UL Lymph # (Auto) 1.59 10*3/uL [place] # (Auto) 1.33 H (0.3-0.8) 10*3/UL Eos # (Auto) 0.07 10*3/UL Baso # (Auto) 0.03 10*3/UL WBC Morphology Comment Normal morphology (NORM) Plt Morphology Comment Normal morphology (NORM) RBC Morph Comment Normal morphology (NORM) Sodium 130 L (135-145) meq/L Potassium 4.3 (3.8-5.2) meq/L Chloride 96 L (98-112) meq/L Carbon Dioxide 23 (23-33) meq/L Anion Gap 11 (5-20) BUN 18 (7-22) mg/dL Creatinine 1.0 (0.70-1.50) mg/dL Estimated GFR > 60 (>60 ml/min/1.73m(2)) BUN/Creatinine Ratio 18.00 (6-20) Glucose 118 H (78-110) mg/dL Mean Blood Glucose mg/dL Hemoglobin A1c (4.2-6.0) % Calculated Osmolality 272.0 (267-292) mOsm/kg Calcium 9.5 (8.7-10.7) mg/dL Magnesium 1.6 (1.6-2.4) mg/dL Total Bilirubin 1.0 (0.3-1.2) mg/dL AST 24 (21-57) IU/L ALT 39 (21-72) IU/L Alkaline Phosphatase 97 (38-126) IU/L Troponin I < 0.012 (< 0.040) ng/mL Total Protein 6.8 (6.1-8.0) g/dL Albumin 3.9 (3.5-4.8) g/dL Globulin 2.9 (2.50-4.10) g/dL Albumin/Globulin Ratio 1.30 (1.3-2.0) mg/g TSH (0.2700-4.2000) uIU/mL Free T4 (0.93-1.71) ng/dL Ur Collection Type Urine Color (Y) Urine Clarity (CLEAR) Urine pH (5.0-8.5) Ur Specific [place] (1.005-1.030) Urine Protein (NEG) mg/dl Urine Glucose (UA) (NEG) mg/dL Urine Ketones (NEG) Urine Occult Blood (NEG) Urine Nitrate (NEG) Urine Bilirubin (NEG) Urine Urobilinogen (0.2) EU/dL Ur Leukocyte Esterase (NEG) Blood Type Antibody Screen Crossmatch 10/19/16 10/19/16 10/19/16 Range/Units 04:11 04:11 04:30 WBC 11.25 H (4.8-10.8) 10^3/uL RBC 2.62 L (4.70-6.10) 10^6/uL Hgb 8.0 L (14.0-18.0) g/dL Hct 23.9 L (42.0-52.0) % MCV 91.2 H (80-90) FL MCH 30.5 (27-31) PG MCHC 33.5 (33-37) g/dL RDW Std Deviation 46.6 (39-50) fL RDW Coeff of [place] 14.7 H (11.5-14.5) % Plt Count 130 L (140-350) 10*3/uL MPV 9.9 (7.4-12.2) FL Immature Gran % (Auto) 0.3 (0-5) % Neut % (Auto) 73.1 (50-80) % Lymph % (Auto) 13.8 (10-50) % [place] % (Auto) 9.6 (5-15) % Eos % (Auto) 2.8 (0-8) % Baso % (Auto) 0.4 (0-1) % Immature Gran # (Auto) 0.03 10*3/UL Neut # (Auto) 8.23 10*3/UL Lymph # (Auto) 1.55 10*3/uL [place] # (Auto) 1.08 H (0.3-0.8) 10*3/UL Eos # (Auto) 0.31 10*3/UL Baso # (Auto) 0.05 10*3/UL WBC Morphology Comment Normal morphology (NORM) Plt Morphology Comment Normal morphology (NORM) RBC Morph Comment Normal morphology (NORM) Sodium 128 L (135-145) meq/L Potassium 4.4 (3.8-5.2) meq/L Chloride 96 L (98-112) meq/L Carbon Dioxide 25 (23-33) meq/L Anion Gap 7 (5-20) BUN 15 (7-22) mg/dL Creatinine 0.9 (0.70-1.50) mg/dL Estimated GFR > 60 (>60 ml/min/1.73m(2)) BUN/Creatinine Ratio 16.66 (6-20) Glucose 116 H (78-110) mg/dL Mean Blood Glucose mg/dL Hemoglobin A1c (4.2-6.0) % Calculated Osmolality 267.0 (267-292) mOsm/kg Calcium 9.0 (8.7-10.7) mg/dL Magnesium (1.6-2.4) mg/dL Total Bilirubin (0.3-1.2) mg/dL AST (21-57) IU/L ALT (21-72) IU/L Alkaline Phosphatase (38-126) IU/L Troponin I (< 0.040) ng/mL Total Protein (6.1-8.0) g/dL Albumin (3.5-4.8) g/dL Globulin (2.50-4.10) g/dL Albumin/Globulin Ratio (1.3-2.0) mg/g TSH (0.2700-4.2000) uIU/mL Free T4 (0.93-1.71) ng/dL Ur Collection Type Clean catch urine Urine Color Yellow (Y) Urine Clarity Clear (CLEAR) Urine pH 6.0 (5.0-8.5) Ur Specific [place] 1.015 (1.005-1.030) Urine Protein Negative (NEG) mg/dl Urine Glucose (UA) Negative (NEG) mg/dL Urine Ketones Negative (NEG) Urine Occult Blood Negative (NEG) Urine Nitrate Negative (NEG) Urine Bilirubin Negative (NEG) Urine Urobilinogen 0.2 (0.2) EU/dL Ur Leukocyte Esterase Negative (NEG) Blood Type Antibody Screen Crossmatch 10/19/16 10/19/16 10/19/16 Range/Units 08:45 12:41 13:46 WBC 13.33 H (4.8-10.8) 10^3/uL RBC 3.10 L (4.70-6.10) 10^6/uL Hgb 9.4 L (14.0-18.0) g/dL Hct 28.3 L (42.0-52.0) % MCV 91.3 H (80-90) FL MCH 30.3 (27-31) PG MCHC 33.2 (33-37) g/dL RDW Std Deviation 48.1 (39-50) fL RDW Coeff of [place] 14.9 H (11.5-14.5) % Plt Count 124 L (140-350) 10*3/uL MPV 9.3 (7.4-12.2) FL Immature Gran % (Auto) 0.2 (0-5) % Neut % (Auto) 90.8 H (50-80) % Lymph % (Auto) 6.6 L (10-50) % [place] % (Auto) 2.0 L (5-15) % Eos % (Auto) 0.2 (0-8) % Baso % (Auto) 0.2 (0-1) % Immature Gran # (Auto) 0.03 10*3/UL Neut # (Auto) 12.12 10*3/UL Lymph # (Auto) 0.88 10*3/uL [place] # (Auto) 0.26 L (0.3-0.8) 10*3/UL Eos # (Auto) 0.02 10*3/UL Baso # (Auto) 0.02 10*3/UL WBC Morphology Comment See comments (NORM) Plt Morphology Comment Normal morphology (NORM) RBC Morph Comment Normal morphology (NORM) Sodium 129 L (135-145) meq/L Potassium 5.2 (3.8-5.2) meq/L Chloride 97 L (98-112) meq/L Carbon Dioxide 22 L (23-33) meq/L Anion Gap 10 (5-20) BUN 15 (7-22) mg/dL Creatinine 0.9 (0.70-1.50) mg/dL Estimated GFR > 60 (>60 ml/min/1.73m(2)) BUN/Creatinine Ratio 16.66 (6-20) Glucose 129 H (78-110) mg/dL Mean Blood Glucose mg/dL Hemoglobin A1c (4.2-6.0) % Calculated Osmolality 270.0 (267-292) mOsm/kg Calcium 9.3 (8.7-10.7) mg/dL Magnesium (1.6-2.4) mg/dL Total Bilirubin 1.0 (0.3-1.2) mg/dL AST 19 L (21-57) IU/L ALT 37 (21-72) IU/L Alkaline Phosphatase 77 (38-126) IU/L Troponin I (< 0.040) ng/mL Total Protein 6.3 (6.1-8.0) g/dL Albumin 3.6 (3.5-4.8) g/dL Globulin 2.7 (2.50-4.10) g/dL Albumin/Globulin Ratio 1.30 (1.3-2.0) mg/g TSH (0.2700-4.2000) uIU/mL Free T4 (0.93-1.71) ng/dL Ur Collection Type Urine Color (Y) Urine Clarity (CLEAR) Urine pH (5.0-8.5) Ur Specific [place] (1.005-1.030) Urine Protein (NEG) mg/dl Urine Glucose (UA) (NEG) mg/dL Urine Ketones (NEG) Urine Occult Blood (NEG) Urine Nitrate (NEG) Urine Bilirubin (NEG) Urine Urobilinogen (0.2) EU/dL Ur Leukocyte Esterase (NEG) Blood Type O POSITIVE Antibody Screen Negative Crossmatch See Detail 10/20/16 10/20/16 10/20/16 Range/Units 03:53 03:53 04:30 WBC 16.12 H (4.8-10.8) 10^3/uL RBC 2.88 L (4.70-6.10) 10^6/uL Hgb 8.6 L (14.0-18.0) g/dL Hct 25.8 L (42.0-52.0) % MCV 89.6 (80-90) FL MCH 29.9 (27-31) PG MCHC 33.3 (33-37) g/dL RDW Std Deviation 46.7 (39-50) fL RDW Coeff of [place] 14.8 H (11.5-14.5) % Plt Count 103 L (140-350) 10*3/uL MPV 10.3 (7.4-12.2) FL Immature Gran % (Auto) 0.4 (0-5) % Neut % (Auto) 81.0 H (50-80) % Lymph % (Auto) 8.8 L (10-50) % [place] % (Auto) 9.6 (5-15) % Eos % (Auto) 0.1 (0-8) % Baso % (Auto) 0.1 (0-1) % Immature Gran # (Auto) 0.07 10*3/UL Neut # (Auto) 13.06 10*3/UL Lymph # (Auto) 1.42 10*3/uL [place] # (Auto) 1.55 H (0.3-0.8) 10*3/UL Eos # (Auto) 0.01 10*3/UL Baso # (Auto) 0.01 10*3/UL WBC Morphology Comment Normal morphology (NORM) Plt Morphology Comment Normal morphology (NORM) RBC Morph Comment Normal morphology (NORM) Sodium 130 L (135-145) meq/L Potassium 4.4 (3.8-5.2) meq/L Chloride 98 (98-112) meq/L Carbon Dioxide 23 (23-33) meq/L Anion Gap 9 (5-20) BUN 18 (7-22) mg/dL Creatinine 0.8 (0.70-1.50) mg/dL Estimated GFR > 60 (>60 ml/min/1.73m(2)) BUN/Creatinine Ratio 22.50 H (6-20) Glucose 165 H (78-110) mg/dL Mean Blood Glucose mg/dL Hemoglobin A1c (4.2-6.0) % Calculated Osmolality 275.0 (267-292) mOsm/kg Calcium 8.9 (8.7-10.7) mg/dL Magnesium (1.6-2.4) mg/dL Total Bilirubin (0.3-1.2) mg/dL AST (21-57) IU/L ALT (21-72) IU/L Alkaline Phosphatase (38-126) IU/L Troponin I < 0.012 (< 0.040) ng/mL Total Protein (6.1-8.0) g/dL Albumin (3.5-4.8) g/dL Globulin (2.50-4.10) g/dL Albumin/Globulin Ratio (1.3-2.0) mg/g TSH (0.2700-4.2000) uIU/mL Free T4 (0.93-1.71) ng/dL Ur Collection Type Urine Color (Y) Urine Clarity (CLEAR) Urine pH (5.0-8.5) Ur Specific [place] (1.005-1.030) Urine Protein (NEG) mg/dl Urine Glucose (UA) (NEG) mg/dL Urine Ketones (NEG) Urine Occult Blood (NEG) Urine Nitrate (NEG) Urine Bilirubin (NEG) Urine Urobilinogen (0.2) EU/dL Ur Leukocyte Esterase (NEG) Blood Type Antibody Screen Crossmatch 10/20/16 10/20/16 10/21/16 Range/Units 04:30 04:30 04:30 WBC (4.8-10.8) 10^3/uL RBC (4.70-6.10) 10^6/uL Hgb (14.0-18.0) g/dL Hct (42.0-52.0) % MCV (80-90) FL MCH (27-31) PG MCHC (33-37) g/dL RDW Std Deviation (39-50) fL RDW Coeff of [place] (11.5-14.5) % Plt Count (140-350) 10*3/uL MPV (7.4-12.2) FL Immature Gran % (Auto) (0-5) % Neut % (Auto) (50-80) % Lymph % (Auto) (10-50) % [place] % (Auto) (5-15) % Eos % (Auto) (0-8) % Baso % (Auto) (0-1) % Immature Gran # (Auto) 10*3/UL Neut # (Auto) 10*3/UL Lymph # (Auto) 10*3/uL [place] # (Auto) (0.3-0.8) 10*3/UL Eos # (Auto) 10*3/UL Baso # (Auto) 10*3/UL WBC Morphology Comment (NORM) Plt Morphology Comment (NORM) RBC Morph Comment (NORM) Sodium 128 L (135-145) meq/L Potassium 4.5 (3.8-5.2) meq/L Chloride 96 L (98-112) meq/L Carbon Dioxide 24 (23-33) meq/L Anion Gap 8 (5-20) BUN 22 (7-22) mg/dL Creatinine 0.9 (0.70-1.50) mg/dL Estimated GFR > 60 (>60 ml/min/1.73m(2)) BUN/Creatinine Ratio 24.44 H (6-20) Glucose 106 (78-110) mg/dL Mean Blood Glucose 92.488 mg/dL Hemoglobin A1c 5.36 (4.2-6.0) % Calculated Osmolality 268.0 (267-292) mOsm/kg Calcium 8.8 (8.7-10.7) mg/dL Magnesium (1.6-2.4) mg/dL Total Bilirubin (0.3-1.2) mg/dL AST (21-57) IU/L ALT (21-72) IU/L Alkaline Phosphatase (38-126) IU/L Troponin I (< 0.040) ng/mL Total Protein (6.1-8.0) g/dL Albumin (3.5-4.8) g/dL Globulin (2.50-4.10) g/dL Albumin/Globulin Ratio (1.3-2.0) mg/g TSH 0.249 L (0.2700-4.2000) uIU/mL Free T4 1.61 (0.93-1.71) ng/dL Ur Collection Type Urine Color (Y) Urine Clarity (CLEAR) Urine pH (5.0-8.5) Ur Specific [place] (1.005-1.030) Urine Protein (NEG) mg/dl Urine Glucose (UA) (NEG) mg/dL Urine Ketones (NEG) Urine Occult Blood (NEG) Urine Nitrate (NEG) Urine Bilirubin (NEG) Urine Urobilinogen (0.2) EU/dL Ur Leukocyte Esterase (NEG) Blood Type Antibody Screen Crossmatch 10/21/16 10/22/16 10/22/16 Range/Units 04:30 05:10 05:10 WBC 14.42 H 14.42 H (4.8-10.8) 10^3/uL RBC 2.39 L 3.29 L (4.70-6.10) 10^6/uL Hgb 7.2 L 10.0 L (14.0-18.0) g/dL Hct 21.7 L 29.7 L (42.0-52.0) % MCV 90.8 H 90.3 H (80-90) FL MCH 30.1 30.4 (27-31) PG MCHC 33.2 33.7 (33-37) g/dL RDW Std Deviation 46.9 46.6 (39-50) fL RDW Coeff of [place] 14.9 H 14.7 H (11.5-14.5) % Plt Count 102 L 129 L (140-350) 10*3/uL MPV 9.8 9.9 (7.4-12.2) FL Immature Gran % (Auto) 0.4 0.5 (0-5) % Neut % (Auto) 72.1 74.1 (50-80) % Lymph % (Auto) 13.7 11.7 (10-50) % [place] % (Auto) 11.4 12.3 (5-15) % Eos % (Auto) 2.3 1.3 (0-8) % Baso % (Auto) 0.1 0.1 (0-1) % Immature Gran # (Auto) 0.06 0.07 10*3/UL Neut # (Auto) 10.39 10.68 10*3/UL Lymph # (Auto) 1.97 1.68 10*3/uL [place] # (Auto) 1.65 H 1.78 H (0.3-0.8) 10*3/UL Eos # (Auto) 0.33 0.19 10*3/UL Baso # (Auto) 0.02 0.02 10*3/UL WBC Morphology Comment Normal morphology Normal morphology (NORM) Plt Morphology Comment Normal morphology Normal morphology (NORM) RBC Morph Comment See comments Normal morphology (NORM) Sodium 129 L (135-145) meq/L Potassium 4.1 (3.8-5.2) meq/L Chloride 94 L (98-112) meq/L Carbon Dioxide 25 (23-33) meq/L Anion Gap 10 (5-20) BUN 17 (7-22) mg/dL Creatinine 0.8 (0.70-1.50) mg/dL Estimated GFR > 60 (>60 ml/min/1.73m(2)) BUN/Creatinine Ratio 21.25 H (6-20) Glucose 102 (78-110) mg/dL Mean Blood Glucose mg/dL Hemoglobin A1c (4.2-6.0) % Calculated Osmolality 269.0 (267-292) mOsm/kg Calcium 9.4 (8.7-10.7) mg/dL Magnesium (1.6-2.4) mg/dL Total Bilirubin (0.3-1.2) mg/dL AST (21-57) IU/L ALT (21-72) IU/L Alkaline Phosphatase (38-126) IU/L Troponin I (< 0.040) ng/mL Total Protein (6.1-8.0) g/dL Albumin (3.5-4.8) g/dL Globulin (2.50-4.10) g/dL Albumin/Globulin Ratio (1.3-2.0) mg/g TSH (0.2700-4.2000) uIU/mL Free T4 (0.93-1.71) ng/dL Ur Collection Type Urine Color (Y) Urine Clarity (CLEAR) Urine pH (5.0-8.5) Ur Specific [place] (1.005-1.030) Urine Protein (NEG) mg/dl Urine Glucose (UA) (NEG) mg/dL Urine Ketones (NEG) Urine Occult Blood (NEG) Urine Nitrate (NEG) Urine Bilirubin (NEG) Urine Urobilinogen (0.2) EU/dL Ur Leukocyte Esterase (NEG) Blood Type Antibody Screen Crossmatch 10/23/16 10/23/16 Range/Units 04:15 04:15 WBC 13.56 H (4.8-10.8) 10^3/uL RBC 3.13 L (4.70-6.10) 10^6/uL Hgb 9.6 L (14.0-18.0) g/dL Hct 28.5 L (42.0-52.0) % MCV 91.1 H (80-90) FL MCH 30.7 (27-31) PG MCHC 33.7 (33-37) g/dL RDW Std Deviation 46.5 (39-50) fL RDW Coeff of [place] 14.7 H (11.5-14.5) % Plt Count 149 (140-350) 10*3/uL MPV 9.7 (7.4-12.2) FL Immature Gran % (Auto) (0-5) % Neut % (Auto) (50-80) % Lymph % (Auto) (10-50) % [place] % (Auto) (5-15) % Eos % (Auto) (0-8) % Baso % (Auto) (0-1) % Immature Gran # (Auto) 10*3/UL Neut # (Auto) 10*3/UL Lymph # (Auto) 10*3/uL [place] # (Auto) (0.3-0.8) 10*3/UL Eos # (Auto) 10*3/UL Baso # (Auto) 10*3/UL WBC Morphology Comment (NORM) Plt Morphology Comment (NORM) RBC Morph Comment (NORM) Sodium 133 L (135-145) meq/L Potassium 3.6 L (3.8-5.2) meq/L Chloride 96 L (98-112) meq/L Carbon Dioxide 25 (23-33) meq/L Anion Gap 12 (5-20) BUN 22 (7-22) mg/dL Creatinine 0.8 (0.70-1.50) mg/dL Estimated GFR > 60 (>60 ml/min/1.73m(2)) BUN/Creatinine Ratio 27.50 H (6-20) Glucose 153 H (78-110) mg/dL Mean Blood Glucose mg/dL Hemoglobin A1c (4.2-6.0) % Calculated Osmolality 281.0 (267-292) mOsm/kg Calcium 9.1 (8.7-10.7) mg/dL Magnesium 1.8 (1.6-2.4) mg/dL Total Bilirubin 1.0 (0.3-1.2) mg/dL AST 29 (21-57) IU/L ALT 36 (21-72) IU/L Alkaline Phosphatase 75 (38-126) IU/L Troponin I (< 0.040) ng/mL Total Protein 5.9 L (6.1-8.0) g/dL Albumin 3.1 L (3.5-4.8) g/dL Globulin 2.8 (2.50-4.10) g/dL Albumin/Globulin Ratio 1.10 L (1.3-2.0) mg/g TSH (0.2700-4.2000) uIU/mL Free T4 (0.93-1.71) ng/dL Ur Collection Type Urine Color (Y) Urine Clarity (CLEAR) Urine pH (5.0-8.5) Ur Specific [place] (1.005-1.030) Urine Protein (NEG) mg/dl Urine Glucose (UA) (NEG) mg/dL Urine Ketones (NEG) Urine Occult Blood (NEG) Urine Nitrate (NEG) Urine Bilirubin (NEG) Urine Urobilinogen (0.2) EU/dL Ur Leukocyte Esterase (NEG) Blood Type Antibody Screen Crossmatch - Imaging X-Ray Status: Image Reviewed by Me (KUB this morning, still is consistent with ileus, albeit loops look a little smaller today. CT scan was done and the radiologist felt that it was consistent with an ileus with no transition point and no evidence of bowel extraction and no evidence of perforation.) Objective : Exam - General General Appearance: No Acute Distress, Cooperative Additional General Exam Details: Vital Signs (24 hrs) Temp Pulse Resp BP BP Pulse Ox 10/23/16 11:35 98.2 F 70 18 151/83 91 10/23/16 06:50 98.9 F 73 18 133/75 96 10/23/16 04:37 92 10/23/16 03:08 98.2 F 72 20 166/87 94 10/22/16 23:55 98.4 F 86 20 173/84 94 10/22/16 22:10 80 16 147/90 94 10/22/16 21:30 77 160/101 95 10/22/16 21:04 180/106 10/22/16 20:26 98.3 F 76 20 183/111 179/102 96 10/22/16 19:00 73 10/22/16 16:26 98.1 F 73 17 152/92 93 - Eye Eye Exam: No Scleral Icterus - ENT ENT Exam: Mucous Membranes Moist - Respiratory Respiratory Exam: Clear to Auscultation - Bilaterally, Breathing Non Labored - Cardiovascular Cardiovascular Exam: RRR, No Murmur, No Clicks, No Gallops, No Rubs, No JVD - GI/Abdominal GI/Abdominal Exam: Non Tender, Non Distended, Soft, Diminished Bowel Sounds - Rectal Rectal Exam: Deferred - Extremities Extremities Exam: No Clubbing Present, No Edema Present, No Cyanosis Present Additional Extremities Exam Details: Right thigh swelling has significantly improved overnight. - Neurological Neurological Exam: Alert, Oriented x 3, No Facial Droop, Speech Intact / Clear Assessment and Plan - Patient Problems (1) Postoperative ileus Current Visit: Yes Status: Acute Code(s): K91.89 - Other postprocedural complications and disorders of digestive system; K56.7 - Ileus, unspecified (2) Hypertension Current Visit: Yes Status: Acute Code(s): I10 - Essential (primary) hypertension Qualifiers: Hypertension type: essential hypertension Qualified Code(s): I10 - Essential (primary) hypertension (3) Postoperative anemia Current Visit: Yes Status: Acute Code(s): D64.9 - Anemia, unspecified (4) Diabetes Current Visit: Yes Status: Acute Code(s): E11.9 - Type 2 diabetes mellitus without complications Qualifiers: Diabetes mellitus type: type 2 Diabetes mellitus complication status: without complication Diabetes mellitus penitentiary insulin use: without penitentiary use Qualified Code(s): E11.9 - Type 2 diabetes mellitus without complications (5) Closed right hip fracture Current Visit: Yes Status: Acute Code(s): S72.001A - Fracture of unspecified part of neck of right femur, initial encounter for closed fracture Qualifiers: Encounter type: subsequent encounter Fracture healing: with routine healing Qualified Code(s): S72.001D - Fracture of unspecified part of neck of right femur, subsequent encounter for closed fracture with routine healing (6) Chronic hyponatremia Current Visit: Yes Status: Chronic Code(s): E87.1 - Hypo-osmolality and hyponatremia (7) Hypokalemia Current Visit: Yes Status: Acute Code(s): E87.6 - Hypokalemia - Assessment / Plan Additional Assessment/Plan Details: Overall, ileus is better. Potassium and magnesium are little on the low side so I'll replace this today. Continue NG tube for now. Check KUB in the morning. If KUB looks better in the morning and ileus looks improved, hopefully can start on some clear liquids and slowly advance diet. Continue PT and OT for the hip. Lovenox for DVT prophylaxis, 20-35 days total., Today is day 2. Hopefully, once ileus resolves, we can place patient in [facility] for skilled therapy. If that does not work, swing bed here for [facility] facility may be necessary. Avoid opiates is much as possible given the ileus. I'm very encouraged by the fact that the belly is significantly softer than it was last night. He's had over 700 MLS out by NG tube. I think that really helped.
--- NOTE | 2016-10-23 13:55 | PT.PROG ---
Progress Note Progress Note: S: Randy reports that he is tired from OT earlier this morning, but that he is OK to do PT. Rnady states that he is experiencing increased indigestion since the g-tube was inserted, but that his nausea symptoms have decreased. O: Ther act consisted of: static standing balance with AD and mod assist x2; 4 min. Therapy was terminated early as Randy experienced shoulder and leg fatigue that restricted activity. A: Randy was educated on the importance of movement to assist him in his recovery. Randy has limited UE and LE strength and endurance that limits his ability to transfer and participate in exercise. P: Continue POC as tolerated.
--- NOTE | 2016-10-23 14:09 | DI ---
XR ABDOMEN (KUB) FLAT [place],10/23/2016 7:00 AM: Clinical History: Ileus. Previous Exam: October 22, 2016 Findings: 2 views of the abdomen are obtained, and demonstrate increasing massive dilation of the right hemicol on measuring approximately 13 cm in diameter. There are multiple air-filled loops of small bowel. There is distal gas seen within the rectum. Patient is status post right compression screw placement. There is contrast noted within the urinary bladder. Phleboliths are seen within the deep pelvis. There is levoscoliosis of the mid lumbar spine. Endplate degenerative changes are noted throughout the lumbar spine as well. A few vascular calcifications are seen without pathologic calcification. Impression: 13.3 cm dilation of the right hemicolon and cecum worrisome for acute colonic pseudo-obstruction. (O gilvie's syndrome).
--- NOTE | 2016-10-23 15:34 | PT.PROG ---
Progress Note Progress Note: S: Randy reports that his indigestion has lessened since this a.m. and that his hip pain has not changed since this a.m. O: Tx consisted of: mod assist transfer x2 with AD from commode to bed; seated LE exercises with red TB; 30x each. A: Randy is severely limited by UE and LE weakness and decreased endurance that limits his ability to participate in transfers and bed mobility. Randy also requires mod-max verbal cuing for safety with transfers. During stand to sit transfer, Randy's RLE was blocked by PT's foot such that Randy could not extend his RLE. This resulted in pain to Randy's R hip. P: Randy was instructed to notify his nurses if the pain persisted. Continue current POC and progress as tolerated.
--- NOTE | 2016-10-23 16:25 | OT AM DAY ---
Diagnosis : Right Hip Fracture AM - Occupational Therapy S: The patient reported that he needed to use the restroom. Over the weekend they put an NG tube in that was hooked to his intestinal system which has been pulling a lot of material from the stomach area. O: The therapist had the patient come from supine to sit with max assist. While sitting edge of bed he needed mod assist to scoot to the edge of the bed. He required max assist to transfer to the commode. When transferring to the commode, the patient had quite a bit of blood draining from his leg wound. We ended up having nursing change the dressing. The patient stood with max assist x2 while nursing cleaned the patient. The patient sat back down for a rest and we had the patient participate in a sponge bath. The patient was able to wash his frontal area and his left axillary region; however, he was not able to reach his right axillary region, back, or legs below the knees. The patient was able to wash his own genitalia today. The patient was placed in a gown and transferred to the chair. A: Overall OT worked with the patient for an hour today on transfers and cleansing the patient. The patient was issued a manager change, sock aide, bath sponge , shower chair, and high rise toilet seat for his home and was educated in their proper use and care. The patient stated all of the adaptive equipment will help. We weren't able to follow through with all of the adaptive equipment today and having the patient practice secondary to him being fatigued after all the transfers today. P: Continue seeing patient BID during the week and one time per day over the weekend for upper extremity strengthening, ADLs, and overall functional mobility. MTDD
--- NOTE | 2016-10-23 16:28 | OT PM DAY ---
Diagnosis : Right Hip Fracture PM - Occupational Therapy S: The patient reported that he needed to use the commode again. O: The patient transferred from sit to stand with max assist and required mod assist to perform a stand pivot transfer to the commode. The patient was on the commode x10 minutes and then stood. The patient was dependent with hygiene of bowel movement. Once sitting again the patient worked on upper extremity strengthening activities including red theraband for biceps curls, triceps, isometric contraction for external rotation, and scapular stabilization followed by foam block for hand strength. A: Overall the patient participated well. While he was performing his arm exercises, he sat edge of bed x15 minutes which worked well for his core strength. P: Continue seeing patient BID during the week and one time per day over the weekend for upper extremity strengthening, ADLs, and overall functional mobility. MTDD
[2016-10-23 18:13] LABS: VITAMIN D 25-HYDROXY 29.1 NG/ML (30-100)
--- NOTE | 2016-10-23 18:42 | DI ---
XR HIP COMPLETE MIN 2VW U/L,10/23/2016 5:43 PM: Clinical History: Status post right hip internal fixation. Previous Exam: October 19, 2016 Findings: AP and crosstable lateral views of the right hip are obtained, and demonstrate a stable dynamic compr ession screw through a right intertrochanteric fracture. Peripheral vascular calcifications are stable. Alignment is also stable. Diffuse degenerative changes of the lumbar spine are noted. Impression: Stable postsurgical changes.
--- NOTE | 2016-10-23 18:47 | DI ---
XR KNEE 1 OR 2 VWS,10/23/2016 5:29 PM: Clinical History: Check placement. Previous Exam: None at this facility. Findings: 2 views of the right knee are obtained, and demonstrate an intramedullary lionel within the right femur. This is in good position. There is screw fixation of the distal device. There is tricompartmental loss of joint space with hydroxyapatite deposition disease within the menis ci. Impression: 1. Intramedullary lionel in good position. 2. 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
[2016-10-23] MEDS: NORMAL SALINE 10 ML SYRINGE FLUSH IVP PRN (19:44)
[2016-10-23] MEDS ORDERED: Acetaminophen 1000mg Inj 1,000 MG/100 ML VIAL IV ONE (21:45)
[2016-10-24] MEDS: D5-1/2NS + 20mEq KCL 1,000 ML PRIMARY IV SCH ×2 (01:26→11:08)
[2016-10-24 04:17] LABS: BASOPHILS # (AUTO) 0.02 10*3/UL; BASOPHILS % (AUTO) 0.2 % (0-1); EOSINOPHILS # (AUTO) 0.13 10*3/UL; EOSINOPHILS % (AUTO) 1.2 % (0-8); Hematocrit [HCT] 24.2 % (42.0-52.0); MEAN CORPUSCULAR HEMOGLOBIN 30.8 PG (27-31); MEAN CORPUSCULAR HGB CONC 33.1 g/dL (33-37); MEAN CORPUSCULAR VOLUME 93.1 FL (80-90); MEAN PLATELET VOLUME 9.5 FL (7.4-12.2); MONOCYTES # (AUTO) 1.28 10*3/UL (0.3-0.8); NEUTROPHILS % (AUTO) 72.9 % (50-80)
[2016-10-24 04:24] LABS: PLATELET MORPHOLOGY COMMENT NORMAL MORPHOLOGY (NORM); RBC MORPHOLOGY COMMENT NORMAL MORPHOLOGY (NORM); WBC MORPHOLOGY COMMENT NORMAL MORPHOLOGY (NORM)
[2016-10-24 04:29] LABS: BLOOD UREA NITROGEN 22 mg/dL (7-22); MAGNESIUM 2.2 mg/dL (1.6-2.4); SERUM ALBUMIN 2.8 g/dL (3.5-4.8)
[2016-10-24] MEDS: KETOROLAC 15 MG/1 ML VIAL IVP PRN ×2 (04:31→22:23)
--- NOTE | 2016-10-24 08:01 | DI ---
EXAM: US Duplex Bilateral Lower Extremity Veins CLINICAL HISTORY: Swelling. TECHNIQUE: Real-time ultrasound scan of the veins of the bilateral lower extremities with color Doppler flow, spectral waveform analysis and compression. COMPARISON: No relevant prior studies available. FINDINGS: Right deep veins: Unremarkable. No DVT in the right common femoral, femoral, proximal deep femoral or popliteal veins. The veins are compressible with normal color flow and augmentation. Right superficial veins: Unremarkable. No thrombus in the visualized right great saphenous vein. Left deep veins: Unremarkable. No DVT in the left common femoral, femoral, proximal deep femoral or popliteal veins. The veins are compressible with normal color flow and augmentation. Left superficial veins: Unremarkable. No thrombus in the visualized left great saphenous vein. Soft tissues: No acute findings. No popliteal cyst. IMPRESSION: No evidence of DVT in the lower extremities.
[2016-10-24] MEDS: ENOXAPARIN SODIUM 40 MG/0.4 ML SYRINGE SUBCUT SCH (08:26)
--- NOTE | 2016-10-24 10:21 | ORTHO.PROG ---
Last Taken Vital Signs: Vital Signs - Last Taken Temperature 98.6 F 10/24/16 06:47 Pulse Rate 71 10/24/16 06:48 Respiratory Rate 18 10/24/16 07:00 Blood Pressure 144/77 10/24/16 06:47 Pulse Ox 95 10/24/16 06:47 Subjective: The patient just got out of the shower with occupational therapy. Nurse's report excessive amount of serosanguineous drainage. Patient does not have much pain but he is weak. Still has an NG tube in place. Objective: Vital signs are stable the patient is afebrile. I inspected the patient's incisions. There is serous drainage coming from all the incisions. He has a fairly large hematoma in the subcutaneous tissue. I wrapped large ABDs pad and secured it with some Coban around his waist and wrapped in Shar wrap around his knee incisions Hemoglobin and hematocrit is 8 and 24 X-rays of the hip and knee were reviewed from last night. These show the hardware to be in good position. No hardware cut out noted Assessment: Impression is postoperative drainage and hematoma. Patient is also trying to recover from an ileus. I think the Lovenox as well as the patient's daily alcoholism is probably a contributing factor. I will discuss this with Dr. Hernandez. I will redress his wounds at 2:00 today.
[2016-10-24] MEDS ORDERED: Sodium Chloride 0.9% 1,000 ML with Multivitamin Inj 10 ML, Thiamine Inj 100 MG, Folic A... IV ONE ×5 (10:50)
--- NOTE | 2016-10-24 11:18 | DI ---
XR ABDOMEN (KUB) FLAT [place],10/24/2016 7:00 AM: Clinical History: Ileus Previous Exam: October 23, 2016 Findings: 2 views of the abdomen are obtained, and demonstrate slight interval improvement of the dilation of t he right colon. There is multiple air-filled loops of small bowel as well as at this time. Degenerative changes are noted of the spine with levoscoliosis of the mid lumbar spine. No pathologic calcifications are seen. Impression: Mild interval improvement of the dilated at right hemicolon. There is still multiple air-filled loops of small bowel consistent with an ileus.
--- NOTE | 2016-10-24 12:32 | OT AM DAY ---
Diagnosis : Right Hip Fracture AM - Occupational Therapy S: Nursing asked OT to assess the patient's showering abilities. O: The patient was seen for an hour and 45 minutes this morning. The therapist spent quite a long time with this patient between the bed transfers and shower chair transfers. Once the patient transferred from supine to sit, his bed was saturated with blood and serious fluid from his wound. The patient' s wound was completely saturated with blood and serous fluid. We transferred the patient from the bed to the shower chair. Once in the shower chair, the therapist rolled him over the toilet where the patient ended up having a slightly runny bowel movement. The patient was dependent with toilet hygiene. The patient then transferred to the shower room. While in the shower chair, the therapist tried to have the patient complete as much of the shower as possible. The patient was able to wash his left arm, his right forearm, his stomach, and slightly underneath his stomach. The therapist had to wash the patient's hair, back, bottom, and leg areas secondary to his limited mobility with his upper extremities. Overall the patient required max assist for the shower. We then had the patient put lotion on his stomach and arms. The therapist assisted with the left leg and his back; we did not do the right leg secondary to his wound. In the shower we had taken the patient's dressings off to shower with just the water on the right leg. All four of the patient's wounds continually oozed during the shower. The patient assisted as much as he could with drying himself; however, he was only able to get the front part of his body; he was not able to get his legs, back, or head. We then had the patient placed in a gown as he still has too much drainage to get shorts on and he has his IVs. The patient was then transferred back to his room. Dr. Henderson met the therapist in the hallway and wanted to look at the patient's drainage that he was having from his hip. The therapist brought the patient back into his room and held the patient x5 minutes while the patient stood while Dr. Henderson put a dressing over his leg. The patient then sat back down in the shower chair. During that time, the patient continually lost his balance and required max assist to assembler dc field ring an upright position using that walker. The patient was issued a ROHO cushion and Dr. Henderson agreed that the patient would need this for sitting as his bottom is getting slightly red. We put this underneath a pad on the patient's chair and the patient needed max assist in order to move right lower extremity for a stand pivot transfer with his right leg. The patient had difficulty initiating movement with this and needed max assist to move the walker. The patient was only able to move retirement from the shower chair to the chair; he said he was getting short of breath and lightheaded. The therapist brought the chair behind the patient and nursing assisted with the transfer. We sat the patient in the chair on the ROHO cushion. The patient's oxygen was checked after this and it was at 97%. The nurses stated that his H&H is low and this may be why he is getting lightheaded and may be vasodilated. The patient was placed in his chair with bed alarms on. A: Overall today's session took quite a bit of time. The patient is max assist to dependent with all showering tasks, dressing tasks, functional transfers, and standing abilities. The patient will need quite a long rehab process in order to recover from this injury. P: Continue seeing patient BID during the week and one time per day over the weekend for upper extremity strengthening, ADLs, and overall functional mobility. OMKAR
--- NOTE | 2016-10-24 12:40 | PT.PROG ---
Progress Note Progress Note: S: Randy reports increasing pain in b/l shoulders (8/10) and unchanged pain in R hip (5/10). Randy reports experiencing soreness in his knee since the stand to sit transfer from yesterday. O: Treatment consisted of: Ther act: sit to stand transfer with max assist x2; standing static balance with AD and mod assist x2, 4min. Ther ex: seated LLE LAQ with 2lb ankle weight, 2x10; seated HS curls with red TB, 3x10; sup SLR with 2lb ankle weight, 2x10. A: Randy needed mod cuing for standing posture to bring his hips in-line with his shoulders and min cuing for safety with AD. Randy has limitations in UE and LE endurance and strength that restrict his ability to participate in therapy. P: Continue with current POC as tolerated.
[2016-10-24] MEDS ORDERED: predniSONE Tab 20 MG TAB PO ONE (13:29)
[2016-10-24] MEDS ORDERED: ACETAMINOPHEN 325 MG TABLET PO ONE (13:29)
[2016-10-24] MEDS ORDERED: FUROSEMIDE 10 MG/1 ML - 2 ML VIAL IVP ONE (13:29)
[2016-10-24] MEDS ORDERED: Sodium Chloride 0.9% 500 ML PRIMARY IV ONE (13:29)
[2016-10-24] MEDS ORDERED: diphenhydrAMINE 25 MG CAPSULE PO ONE (13:29)
--- NOTE | 2016-10-24 13:29 | PDOC(PROG) ---
Interval History: Patient is doing much better today he has had nothing out of his NG and actually has passed gas and and went to the bathroom as well we will pull out his NG and is very happy about this. He does admit to drinking 3 Mauricio Tejeda every night. Chest pain nausea vomiting at this point Objective : Data - Labs CBC and BMP: 10/24/16 03:53 10/24/16 03:53 Objective : Exam - Head Head Exam: Normal Inspection, Normocephalic, Atraumatic - Respiratory Respiratory Exam: Clear to Auscultation - Bilaterally, Breathing Non Labored, Normal To Percussion, Normal to Percussion and Palpation - Cardiovascular Cardiovascular Exam: RRR, No Murmur, No Clicks - GI/Abdominal GI/Abdominal Exam: Non Tender, Non Distended, Soft - Extremities Additional Extremities Exam Details: Is a right thigh is wrapped by or so because of continuing bruising and hematoma postop Assessment and Plan - Patient Problems (1) Closed right hip fracture Current Visit: Yes Status: Acute Code(s): S72.001A - Fracture of unspecified part of neck of right femur, initial encounter for closed fracture Qualifiers: Encounter type: subsequent encounter Fracture healing: with routine healing Qualified Code(s): S72.001D - Fracture of unspecified part of neck of right femur, subsequent encounter for closed fracture with routine healing (2) Hypertension Current Visit: Yes Status: Acute Code(s): I10 - Essential (primary) hypertension Qualifiers: Hypertension type: essential hypertension Qualified Code(s): I10 - Essential (primary) hypertension (3) Diabetes Current Visit: Yes Status: Acute Code(s): E11.9 - Type 2 diabetes mellitus without complications Qualifiers: Diabetes mellitus type: type 2 Diabetes mellitus complication status: without complication Diabetes mellitus detention insulin use: without terminal operations supervisor use Qualified Code(s): E11.9 - Type 2 diabetes mellitus without complications (4) Chronic hyponatremia Current Visit: Yes Status: Chronic Code(s): E87.1 - Hypo-osmolality and hyponatremia - Assessment / Plan Additional Assessment/Plan Details: #1 status post right hip replacement with continuing oozing from his wounds and possible hematoma with low hemoglobin I discussed the case with Ortho will hold the Lovenox as an time also the patient does admit to drinking objective Brandon' s every night may be gastritis might be in the picture for hemoglobin as well. I will start him on IV Protonix. #2 ileus is improved we will poorly To the bathroom actually had diarrhea twice we'll check for C. difficile #3 transfuse 2 units of packed red blood cells orthopedic surgeon in agreement #4 disposition the [facility] once ileus resolves and hemoglobin is stable
--- NOTE | 2016-10-24 20:19 | ORTHO.PROG ---
Last Taken Vital Signs: Vital Signs - Last Taken Temperature 98.4 F 10/24/16 19:00 Pulse Rate 80 10/24/16 19:00 Respiratory Rate 22 10/24/16 19:00 Blood Pressure 168/79 10/24/16 19:00 Pulse Ox 99 10/24/16 19:00 Subjective: I came in to change Mr. Hodge's dressing. I changed this morning, then again at 2:00 in the afternoon, and then just now. He has signs of having hemorrhaged into the subcutaneous tissue. His Lovenox will be held tomorrow. Not complaining of much pain. Objective: Exam reveals a large ecchymosis along the lateral and proximal hip. There is serosanguineous drainage coming from the upper 2 incisions primarily. I re- changed the dressing today wrapping Coban around to try to get some compression. Assessment: Impression is day 5 following hip fixation. Patient ileus seems to be resolving his NG tube is out. Biggest issue now is the hematoma and persistent drainage. Plan: We will continue to do dressing changes and monitor his blood counts. His blood pressure remained stable. We'll recheck his H&H in the morning.
[2016-10-25 04:43] LABS: Hematocrit [HCT] 27.2 % (42.0-52.0); MEAN CORPUSCULAR HGB CONC 33.1 g/dL (33-37); MEAN CORPUSCULAR VOLUME 90.7 FL (80-90); MEAN PLATELET VOLUME 9.4 FL (7.4-12.2)
--- NOTE | 2016-10-25 08:25 | ORTHO.PROG ---
Last Taken Vital Signs: Vital Signs - Last Taken Temperature 98.6 F 10/25/16 03:49 Pulse Rate 79 10/25/16 03:49 Respiratory Rate 20 10/25/16 03:49 Blood Pressure 165/87 10/25/16 03:49 Pulse Ox 93 10/25/16 04:03 Subjective: Rigo is sitting up in a chair. He looks good this morning. The nurse only reported a baseball sized area of drainage on his jeffery. Since I changed his dressing last night, I don't see a lot of drainage on the dressing so far. Not reporting much pain at all. Objective: Vital signs are stable patient is afebrile. Blood pressures have remained good. Hemoglobin and hematocrit 9.0 and 27.2 Right hip still has the Coban dressing that I put on last night. I don't see hardly any breakthrough bleeding. Very little blood on his jeffery. Leg swelling is minimal. Assessment: Impression: Postop day 6 following fixation hip fracture. Ileus seems to resolve. Drainage from his hip may be slowing down. Plan: Plan: We will see how today goes. I will check on him several times today and see how the drainage goes. His H&H corrected some with blood yesterday and hopefully this will stabilize. His hemodynamic stability has been good.
[2016-10-25] MEDS: KETOROLAC 15 MG/1 ML VIAL IVP PRN ×3 (08:56→23:05)
[2016-10-25] MEDS: Pantoprazole Inj 40 MG in Normal Saline Flush 10 ML IVP SCH (08:56)
[2016-10-25] MEDS: NORMAL SALINE 10 ML SYRINGE FLUSH IVP PRN ×2 (08:56→17:33)
--- NOTE | 2016-10-25 11:57 | OT.PROG ---
Progress Note Progress Note: S: pt was in good spirits, did not report much pain, but did explain that his shoulders hurt. O: pt was assisted in a.m. with transferring to toilet. He needed mod A to completed sit to stand and complete stand pivot transfer toilet. He as a max a with toileting and transferred him to his w/c. After assisting PT and nursing with transfer he was educated on sock aid and completed x1 sock Ind. A: pt may continue to benefit from therapy to increase overall functional transfers. He may also be educated on equipment to assist with ADL's. P: possible SB later this week. continue per POC.
--- NOTE | 2016-10-25 12:38 | PDOC(PROG) ---
Interval History: Patient is doing well has no complaints according to what those notes there is less oozing from his right thigh which is very encouraging. Denies chest pain nausea vomiting his bowels are working and ileus is resolved Objective : Data - Labs CBC and BMP: 10/25/16 04:39 10/24/16 03:53 Objective : Exam - General General Appearance: Cooperative - Respiratory Respiratory Exam: Clear to Auscultation - Bilaterally, Breathing Non Labored, Normal To Percussion, Normal to Percussion and Palpation - Cardiovascular Cardiovascular Exam: RRR, No Murmur, No Clicks, No Gallops - GI/Abdominal GI/Abdominal Exam: Non Tender, Non Distended, Soft - Extremities Extremities Exam: Normal Capillary Refill, No Clubbing Present, No Edema Present - Neurological Neurological Exam: Alert, Oriented x 3 Assessment and Plan - Patient Problems (1) Closed right hip fracture Current Visit: Yes Status: Acute Code(s): S72.001A - Fracture of unspecified part of neck of right femur, initial encounter for closed fracture Qualifiers: Encounter type: subsequent encounter Fracture healing: with routine healing Qualified Code(s): S72.001D - Fracture of unspecified part of neck of right femur, subsequent encounter for closed fracture with routine healing (2) Hypertension Current Visit: Yes Status: Acute Code(s): I10 - Essential (primary) hypertension Qualifiers: Hypertension type: essential hypertension Qualified Code(s): I10 - Essential (primary) hypertension (3) Diabetes Current Visit: Yes Status: Acute Code(s): E11.9 - Type 2 diabetes mellitus without complications Qualifiers: Diabetes mellitus type: type 2 Diabetes mellitus complication status: without complication Diabetes mellitus termination clerk insulin use: without termination clerk use Qualified Code(s): E11.9 - Type 2 diabetes mellitus without complications (4) Chronic hyponatremia Current Visit: Yes Status: Chronic Code(s): E87.1 - Hypo-osmolality and hyponatremia - Assessment / Plan Additional Assessment/Plan Details: #1 status post right hip fracture and repair secondary to fall. Patient has been having issues with continuing oozing and blood loss received multiple doses of packed red blood cells today according to orthosis no things look better with reduced diffusing Lovenox was held. Also patient was given a banana bag multivitamin I'm sure his underlying alcohol habits of 3-4 Mauricio Tejeda at night also are contributing to the anticoagulation. Even though his LFTs are within normal limits and we'll check an INR today. Also I will hold all NSAIDs as well #2 chronic hyponatremia now resolved #3 ileus. Now resolved #4 disposition most likely will go to swing bed for a week or 2 and then the [facility] as recommended by PT
--- NOTE | 2016-10-25 13:25 | PT.PROG ---
Progress Note Progress Note: S: Randy reports that he feels good today and that he is happy that the g-tube was removed. O: Treatment consisted of: ambulation with mod assist x2 and AD; static standing for endurance, x5min; stand to sit transfer with mod assist x2. Randy was left in hospital recliner with bed alarm on and call light within reach. A: Randy ambulates with forward trunk lean and struggles with aligning his hips and his shoulders when given cuing. Randy's UE and LE strength continue to limit his ability to ambulate with AD. Randy is showing improvement in ability to transfer and requires less assistance. P: Continue current POC as tolerated.
--- NOTE | 2016-10-25 14:11 | PT PM DAY ---
Diagnosis : Right Hip Fracture PM - Physical Therapy S: Dr. Henderson asked for assistance for changing the patient's dressing. He states he wants to be the one doing the dressing change. The patient reports he is still having a lot of pain and is concerned about continued bleeding. O: The patient was seen in his room with the assistance of Dr. Henderson for dressing change while receiving two units of blood. Treatment consisted of the patient transferring from sit to stand with max assist x2 and the patient standing for approximately 7 minutes while receiving a dressing change to his right lower extremity as performed by Dr. Henderson. Following this the patient was placed back in his chair where he received manual therapy in the form of tibial femoral and patellofemoral joint mobilization with emphasis on knee flexion as well as active long arc quads and modified heel slides in the seated position. A: The patient's wound continues to demonstrate active bleeding with 80% strike through his bandage from earlier today. Per Dr. Henderson we are to continue to work on knee mobility and range of motion. P: Continue seeing patient BID during the week and one time per day over the weekend for transfers, ambulation, and range of motion/strengthening exercises. MTDD
--- NOTE | 2016-10-25 15:00 | OT PM DAY ---
Diagnosis : Right Hip Fracture PM - Occupational Therapy S: The patient was attempted earlier this afternoon but was busy with activities. O: We saw the patient later in the afternoon and he was willing to participate in upper extremity strengthening exercises while sitting in chair. The patient performed red theraband resisted triceps, biceps, internal/external rotation, and 30 degrees of shoulder extension and slight scaption into an adducted position x20 repetitions each. The patient also squeezed a foam block x2 minutes bilaterally. A: The patient would continue to benefit from strengthening exercises of the arms, especially for the triceps so that he can improve his overall abilities with use of walker and being able to tolerate longer periods of time on the walker by using his triceps. P: Continue seeing patient BID during the week and one time per day over the weekend for upper extremity strengthening, ADLs, and overall functional mobility. MTDD
[2016-10-25 15:56] LABS: Hematocrit [HCT] 29.4 % (42.0-52.0); Hemoglobin [HGB] 9.9 g/dL (14.0-18.0); RED BLOOD COUNT 3.19 10^6/uL (4.70-6.10)
[2016-10-25 15:57] LABS: MEAN CORPUSCULAR HGB CONC 33.7 g/dL (33-37); MEAN CORPUSCULAR VOLUME 92.2 FL (80-90); MEAN PLATELET VOLUME 9.7 FL (7.4-12.2)
[2016-10-25] MEDS ORDERED: Sodium Chloride 0.9% 1,000 ML with Multivitamin Inj 10 ML, Thiamine Inj 100 MG, Folic A... IV ONE ×5 (16:00)
--- NOTE | 2016-10-25 16:39 | OT.PROG ---
Progress Note Progress Note: S: pt reports pain has improved. He was ok with getting dressed and he had his own cloths. O: pt was seen today in the p.m. in his room upright in chair. Pt was educated on sock aid and room service food server and completed task slowly but Ind with very minimal cues. pt also completed LE dressing with room service food server needing Min A once we stood to complete donning of shorts. He Ind donned Ue clothing. He completed sit to stand with min -mod A and completed stand pivot transfer to w/c. Pt was transferred downstairs in chair where he completed x1 more transfer to EOB after walking approx 3 ft and cues to stay TTWB. He needed Max A to complete bed mobility to a supine position. PT took over tx at this point. A: pt may continue to benefit from therapy in SB to ensure he is receiving enough therapy to increase overall function. It was reported by that he receive no heat to hip as it may increase discharge from incision point. P: continue per POC.
--- NOTE | 2016-10-25 17:20 | ORTHO.PROG ---
Last Taken Vital Signs: Vital Signs - Last Taken Temperature 97.5 F 10/25/16 13:00 Pulse Rate 50 L 10/25/16 13:00 Respiratory Rate 20 10/25/16 13:00 Blood Pressure 168/89 10/25/16 13:00 Pulse Ox 98 10/25/16 13:00 Objective: I came down to change Randy's dressing. His had a pretty good day. Mild breakthrough drainage over the last 24 hours. I removed the dressings. Most of the dressings including ABDs pads had serosanguineous drainage. However most of it was contained within the dressings and not leaked out on the bed. They seem to be less weepy than they were yesterday by considerable amount. I redressed the wounds today. I'll see him in the morning.
[2016-10-26 05:40] LABS: BLOOD UREA NITROGEN 26 mg/dL (7-22); BUN/CREATININE RATIO 37.14 (6-20); SERUM ALBUMIN 2.8 g/dL (3.5-4.8)
[2016-10-26] MEDS: Pantoprazole Inj 40 MG in Normal Saline Flush 10 ML IVP SCH (08:33)
--- NOTE | 2016-10-26 08:33 | ORTHO.PROG ---
Last Taken Vital Signs: Vital Signs - Last Taken Temperature 98.8 F 10/26/16 08:14 Pulse Rate 72 10/26/16 08:14 Respiratory Rate 20 10/26/16 08:14 Blood Pressure 174/79 10/26/16 08:14 Pulse Ox 94 10/26/16 08:14 Subjective: Patient is sitting up in a chair. Seems to be doing fine. No problems reported through the night. Pain seems to be well controlled. Objective: Vital signs are stable patient is afebrile. Right hip dressing is intact. Appears to be dry. No drainage seen around the dressing. Assessment: Impression: Improvement following fixation right hip fracture. Drainage seems to be slowing. Ileus has resolved. Plan: Plan is to continue current care. May change his dressing later this afternoon.
[2016-10-26 08:39] LABS: BASOPHILS # (AUTO) 0.01 10*3/UL; BASOPHILS % (AUTO) 0.1 % (0-1); EOSINOPHILS # (AUTO) 0.11 10*3/UL; EOSINOPHILS % (AUTO) 1.1 % (0-8); Hematocrit [HCT] 26.4 % (42.0-52.0); Hemoglobin [HGB] 8.7 g/dL (14.0-18.0); LYMPHOCYTES # (AUTO) 1.21 10*3/uL; MEAN CORPUSCULAR HEMOGLOBIN 30.3 PG (27-31); MEAN PLATELET VOLUME 9.6 FL (7.4-12.2); MONOCYTES # (AUTO) 1.19 10*3/UL (0.3-0.8); MONOCYTES % (AUTO) 11.4 % (5-15); NEUTROPHILS # (AUTO) 7.85 10*3/UL; NEUTROPHILS % (AUTO) 74.8 % (50-80); PLATELET MORPHOLOGY COMMENT NORMAL MORPHOLOGY (NORM); RBC MORPHOLOGY COMMENT NORMAL MORPHOLOGY (NORM); RED BLOOD COUNT 2.87 10^6/uL (4.70-6.10); WBC MORPHOLOGY COMMENT NORMAL MORPHOLOGY (NORM)
[2016-10-26] MEDS: KETOROLAC 15 MG/1 ML VIAL IVP PRN (11:37)
--- NOTE | 2016-10-26 12:22 | PDOC(PROG) ---
Interval History: Patient is doing well has no complaints bruising seems to be slowed down Objective : Data - Labs CBC and BMP: 10/26/16 05:00 10/26/16 05:11 Objective : Exam - General General Appearance: Cooperative - Head Head Exam: Normal Inspection - Respiratory Respiratory Exam: Clear to Auscultation - Bilaterally, Breathing Non Labored, Normal To Percussion - Cardiovascular Cardiovascular Exam: RRR, No Murmur, No Clicks - GI/Abdominal GI/Abdominal Exam: Non Distended, Soft Assessment and Plan - Patient Problems (1) Closed right hip fracture Current Visit: Yes Status: Acute Comment: Defer to orthopedic surgery wound changes are being done twice a day oozing and bleeding is slowing down hemoglobin has stabilized 8.7 today Code(s): S72.001A - Fracture of unspecified part of neck of right femur, initial encounter for closed fracture Qualifiers: Encounter type: subsequent encounter Fracture healing: with routine healing Qualified Code(s): S72.001D - Fracture of unspecified part of neck of right femur, subsequent encounter for closed fracture with routine healing (2) Hypertension Current Visit: Yes Status: Acute Code(s): I10 - Essential (primary) hypertension Qualifiers: Hypertension type: essential hypertension Qualified Code(s): I10 - Essential (primary) hypertension (3) Diabetes Current Visit: Yes Status: Acute Comment: Continue sugar checks Code(s): E11.9 - Type 2 diabetes mellitus without complications Qualifiers: Diabetes mellitus type: type 2 Diabetes mellitus complication status: without complication Diabetes mellitus assisted insulin use: without salvage determiner use Qualified Code(s): E11.9 - Type 2 diabetes mellitus without complications (4) Chronic hyponatremia Current Visit: Yes Status: Chronic Comment: Stable Code(s): E87.1 - Hypo-osmolality and hyponatremia (5) Postoperative ileus Current Visit: Yes Status: Resolved Comment: This is resolved patient is a regular diet Code(s): K91.89 - Other postprocedural complications and disorders of digestive system; K56.7 - Ileus, unspecified
--- NOTE | 2016-10-26 14:53 | OT.PROG ---
Progress Note Progress Note: s: pt stated he did not have a whole lot of pain. He reports more pain in shoulders than in leg at this time. O: pt was seen in his room in the a.m for ADL's. He completed UE dressing Min A and LE dressing with sas clinical programmer with min A. He stood and completed the donning of shorts Ind and completed functional transfer approx 3-4ft with cues to keep TTWB. He was transferred downstairs to therapy in w/c and completed x1 more transfer needing min a to completed sit to stand and transferred approx 4-5 ft to EOB where PT took over treatment. A: Pt participates well but a lot of his limitations are due to shoulder pain and and UE decreased ROM. P: pt may benefit from SB at this time.
--- NOTE | 2016-10-26 16:17 | PT.PROG ---
Progress Note Progress Note: S: Randy reports continued pain in his shoulders that hurts him more than his R hip. Randy states that he believes there is not potential for him to strengthen his shoulders and that his shoulders need to be replaced. O: Treatment consisted of: RLE knee mobilization for flexion/extension in seated position; LLE hamstring curls and hip ext with band, KE and hip ext with 2lb weight, 2x10 ea; ice pack to RLE, 10min. Randy was returned to his hospital bed; alarm on and call light within reach. A: Randy participates well in therapy, but continues to be limited by UE and LLE weakness. continues to limit his ability to transfer. P: Continue POC as tolerated.
[2016-10-26] MEDS ORDERED: traMADol 50 MG TABLET PO ONE (19:03)
[2016-10-26] MEDS: MORPHINE SULFATE 2 MG/1 ML IVP PRN (19:35)
[2016-10-27] MEDS: MORPHINE SULFATE 2 MG/1 ML IVP PRN (00:29)
[2016-10-27 04:05] LABS: Hemoglobin [HGB] 8.7 g/dL (14.0-18.0); MEAN CORPUSCULAR HEMOGLOBIN 30.6 PG (27-31); MEAN CORPUSCULAR HGB CONC 33.5 g/dL (33-37); MEAN CORPUSCULAR VOLUME 91.5 FL (80-90); RED BLOOD COUNT 2.84 10^6/uL (4.70-6.10)
--- NOTE | 2016-10-27 08:29 | ORTHO.PROG ---
Last Taken Vital Signs: Vital Signs - Last Taken Temperature 97.7 F 10/27/16 07:23 Pulse Rate 86 10/27/16 07:23 Respiratory Rate 20 10/27/16 07:23 Blood Pressure 142/95 10/27/16 07:23 Pulse Ox 97 10/27/16 07:23 Subjective: Mr. Hodge is sitting in a chair. He is good this morning. Still complains of some neck and upper back, shoulder pain. This is a chronic ongoing problem. Does not really have any hip pain. Objective: Vital signs are stable patient is afebrile. Right hip dressing is clean dry and intact. I left that alone today. Hemoglobin and hematocrit 8.6 and 27. Under sterile conditions I injected the right and left shoulders. This is done following ChloraPrep prep and Betadine. Injected 3 mL of half percent Marcaine 3 mL of 1% lidocaine, and a cc and a half of Celestone. This was done in each shoulder with a 21-gauge needle. This tolerated well. Assessment: Impression: 8 days status post fixation right hip fracture. Drainage seems to be slowing nicely. Blood pressures have remained stable. Hemoglobin and hematocrit stabilized. He has chronic cuff tear arthropathy of both shoulders. Hopefully the injections will provide some pain relief there. Plan: Plan: We'll leave the dressing alone today and possibly tomorrow. I suspect the patient will be placed on a swing bed either today or tomorrow. I will check out to Dr. Olivarez. I'll return on Sunday.
[2016-10-27] MEDS: Pantoprazole Inj 40 MG in Normal Saline Flush 10 ML IVP SCH (08:38)
[2016-10-27] MEDS: traMADol 50 MG TABLET PO SCH (08:39)
[2016-10-27] MEDS: FOLIC ACID 1 MG TABLET PO SCH (09:17)
[2016-10-27] MEDS: FERROUS GLUCONATE 324 MG TABLET PO SCH (09:18)
--- NOTE | 2016-10-27 10:23 | OT PM DAY ---
Diagnosis : Right Hip Fracture PM - Occupational Therapy S: The patient reports that his shoulders are very sore. He states that his leg is moving slightly better and he is moving slightly better. O: Today the patient completed some functional transfers; one from the chair to the wheelchair, the patient walked a few feet to get to the wheelchair. He was doing well with sliding his right leg along and taking small sliding steps with his left leg and putting minimal weight on his right leg. The patient was able to move his right leg with the movement from the chair to the wheelchair which was an improvement. The patient was then wheeled downstairs to therapy. In therapy we worked on upper extremity strengthening exercises, really focusing on the biceps and the triceps. We increased the repetitions to 25; we tried two kilograms but that was too hard. We went to 1.5 kilograms which the patient was able to do bilaterally. We did as much shoulder extension as the patient could tolerate, which was approximately 30 degrees. We worked on internal rotation. We had the patient complete flex bar by pushing in and out x10. He said this was very difficult with the yellow flex bar. He performed power web for hand strengthening x25 repetitions. The patient then transferred from the wheelchair to the mat table. The patient was able to sit on mat with verbal cues and min assist. He required max assist to transfer from sit to supine. The patient received an application of moist heat pack x20 minutes including set up to his shoulder. A: The patient has made some slight gains with his functional transfers. We are trying to keep his upper extremities as strong as possible for his functional transfers and being able to use the walker for longer periods at a time. P: Continue seeing patient BID during the week and one time per day over the weekend for upper extremity strengthening, ADLs, and overall functional mobility. OMKAR
--- NOTE | 2016-10-27 10:52 | PDOC(PROG) ---
Interval History: Patient is doing great and has no complaints tolerating food eating resting he did receive a steroid injection in both shoulders by Britney this morning also losing his almost the none evident and his hemoglobin is stable Objective : Data - Labs CBC and BMP: 10/27/16 04:02 10/26/16 05:11 Objective : Exam - General General Appearance: Cooperative - Respiratory Respiratory Exam: Clear to Auscultation - Bilaterally, Breathing Non Labored, Normal To Percussion - Cardiovascular Cardiovascular Exam: RRR, No Murmur, No Clicks - GI/Abdominal GI/Abdominal Exam: Non Tender, Non Distended, Soft Assessment and Plan - Patient Problems (1) Closed right hip fracture Current Visit: Yes Status: Acute Comment: Status post right hip repair losing from wound is way diminished hemoglobin remained stable continue to observe Code(s): S72.001A - Fracture of unspecified part of neck of right femur, initial encounter for closed fracture Qualifiers: Encounter type: subsequent encounter Fracture healing: with routine healing Qualified Code(s): S72.001D - Fracture of unspecified part of neck of right femur, subsequent encounter for closed fracture with routine healing (2) Hypertension Current Visit: Yes Status: Acute Code(s): I10 - Essential (primary) hypertension Qualifiers: Hypertension type: essential hypertension Qualified Code(s): I10 - Essential (primary) hypertension (3) Diabetes Current Visit: Yes Status: Acute Comment: Stable Code(s): E11.9 - Type 2 diabetes mellitus without complications Qualifiers: Diabetes mellitus type: type 2 Diabetes mellitus complication status: without complication Diabetes mellitus tank terminal gauger insulin use: without tank terminal gauger use Qualified Code(s): E11.9 - Type 2 diabetes mellitus without complications (4) Chronic hyponatremia Current Visit: Yes Status: Chronic Code(s): E87.1 - Hypo-osmolality and hyponatremia (5) Postoperative ileus Current Visit: Yes Status: Resolved Comment: Resolved Code(s): K91.89 - Other postprocedural complications and disorders of digestive system; K56.7 - Ileus, unspecified
--- NOTE | 2016-10-27 16:44 | OT.PROG ---
Progress Note Progress Note: S: pt stated he needed to use the restroom and needed to use quick. He reports that his shoulders hurt worse than anything. O: pt was seen in his room in the a.m. He completed donning of LE garments with use of lot porter with MOd Ind as it took him longer to complete. He donned UE shirt with MIn A as he lacks ROM with UE's therefore has difficulty with donning t-shirts. He completed sit to stand with Mod A and transferred approx 3 -4 ft commode, he needed Max A with toileting. He was transferred downstairs to therapy in w/c. He completed x1 more transfer completing sit to stand much better with MIn A. Pt then completed the PT portion of therapy. A: pt is improving on the ability to complete sit to stands and transferring further. He is still lacking ability to transfer further distance due to UE shoulder weakness/pain and inability to raise R LE. P: continue per plan of care. Would benefit from SB.
--- NOTE | 2016-10-27 16:49 | PT.PROG ---
Progress Note Progress Note: S: Randy reports that he received a steroid shot for his L shoulder, yesterday. He states that he continues to have shoulder pain that is worse than his hip pain. O: Randy was wheeled to therapy by OT prior to beginning PT. Treatment consisted of: manual therapy to RLE knee for flexion and extension followed by LLE strengthening exercises including seated LAQ with 2lb, HS curls and hip ext with TB, all 20x each. Randy transferred with mod assist x1 to wheelchair and was wheeled to hospital room. Bed alarm on and call light within reach. A: Randy has limited UE and LE strength and limited RLE knee flexion that limits his ability to transfer. Randy would continue to benefit from skilled therapy to address his limited stength and mobility. P: Continue POC.
--- NOTE | 2016-10-27 16:51 | OT.PROG ---
Progress Note Progress Note: S: pt stated he is still having pain in shoulders, he is hoping that shot he received this morning will help the pain. He reported not being very hungry today. O: pt was seen in the p.m. and was sitting on commode. He was max A with toileting at this time. He transferred approx 3-4 ft to w/c and was transferred down to therapy. He received moist heat to UE shoulders and micro massage to decrease pain in BUE's. He was k-tape with mechanical correction superior glide to BUE's to help support joint and reduce pain. He completed transfer to mat table approx 5-6 ft with CGA at all times for safety. He completed x20 sit to stands at a elevated position to increase ability to complete this task and strengthen LE's. Pt was left in care of PT upon completion of this activity. A: Continue to monitor k-tape as he reports having reactions to most tape. He is displaying ability to transfer further,yet at a slow pace. His BUE's are a limiting factor at this time due to pain and lack of strength/ROM. P:pt would benefit from SB.
[2016-10-28] MEDS: traMADol 50 MG TABLET PO SCH (08:32)
[2016-10-28] MEDS: FERROUS GLUCONATE 324 MG TABLET PO SCH (08:32)
[2016-10-28] MEDS: FOLIC ACID 1 MG TABLET PO SCH (08:33)
[2016-10-28] MEDS: Pantoprazole Inj 40 MG in Normal Saline Flush 10 ML IVP SCH (08:33)
[2016-10-28] MEDS: NORMAL SALINE 10 ML SYRINGE FLUSH IVP PRN (08:34)
--- NOTE | 2016-10-28 11:51 | ORTHO.PROG ---
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 This current dressing was changed last night and then gently opening the upper portion looks okay no marked drainage and certainly not saturated. No new labs today. Hemoglobin and hematocrit have been stable over the last several days prior Vital Signs (24 hrs) Temp Pulse Pulse Resp BP BP Pulse Ox 10/28/16 08:29 97.9 F 75 20 144/71 95 10/28/16 07:09 78 10/28/16 05:06 93 10/28/16 04:12 98.5 F 81 22 164/81 93 10/28/16 00:29 97.6 F 79 20 148/87 96 10/27/16 19:59 97.6 F 90 20 155/82 94 10/27/16 19:00 90 10/27/16 16:21 98 F 83 20 158/83 93 10/27/16 13:00 98.4 F 85 18 158/86 92 Assessment: A right cephalo-medullary nail for peritrochanteric hip fracture. Anemia appears to be stable. Right surgical site with some serosanguineous drainage improving on a daily basis. Plan: Patient will continue with physical therapy and occupational therapy. Discussed with nursing to have them or therapy give me a call in the morning when he is down stairs so that we can change his dressing.
[2016-10-28] MEDS: MORPHINE SULFATE 2 MG/1 ML IVP PRN (15:08)
--- NOTE | 2016-10-28 15:31 | PDOC(PROG) ---
Date and Time of Service: 10/28/2016, 1529 Interval History: No chest pain, shortness breath, nausea or vomiting. Patient continues to complain of bilateral shoulder pain. I agree with or so, they probably has long -standing rheumatoid arthritis. The patient is been very difficult to keep motivated to continue to walk and ambulate in the hallways and participate in therapy to a meaningful spot. He really needs to go to swing bed. I think he' ll be ready to do that this week. His ileus is resolved. Objective : Data - Labs CBC and BMP: 10/27/16 04:02 10/26/16 05:11 Additional Lab Results: Laboratory Results 10/18/16 10/18/16 10/18/16 Range/Units 20:30 20:30 20:30 WBC 15.43 H (4.8-10.8) 10^3/uL RBC 3.13 L (4.70-6.10) 10^6/uL Hgb 9.5 L (14.0-18.0) g/dL Hct 28.2 L (42.0-52.0) % MCV 90.1 H (80-90) FL MCH 30.4 (27-31) PG MCHC 33.7 (33-37) g/dL RDW Std Deviation 47.2 (39-50) fL RDW Coeff of [place] 14.8 H (11.5-14.5) % Plt Count 140 (140-350) 10*3/uL MPV 8.7 (7.4-12.2) FL Immature Gran % (Auto) 0.3 (0-5) % Neut % (Auto) 80.1 H (50-80) % Lymph % (Auto) 10.3 (10-50) % [place] % (Auto) 8.6 (5-15) % Eos % (Auto) 0.5 (0-8) % Baso % (Auto) 0.2 (0-1) % Immature Gran # (Auto) 0.05 10*3/UL Neut # (Auto) 12.36 10*3/UL Lymph # (Auto) 1.59 10*3/uL [place] # (Auto) 1.33 H (0.3-0.8) 10*3/UL Eos # (Auto) 0.07 10*3/UL Baso # (Auto) 0.03 10*3/UL WBC Morphology Comment Normal morphology (NORM) Plt Morphology Comment Normal morphology (NORM) RBC Morph Comment Normal morphology (NORM) PT (9.7-11.4) secs INR (0.00-5.90) N/A Sodium 130 L (135-145) meq/L Potassium 4.3 (3.8-5.2) meq/L Chloride 96 L (98-112) meq/L Carbon Dioxide 23 (23-33) meq/L Anion Gap 11 (5-20) BUN 18 (7-22) mg/dL Creatinine 1.0 (0.70-1.50) mg/dL Estimated GFR > 60 (>60 ml/min/1.73m(2)) BUN/Creatinine Ratio 18.00 (6-20) Glucose 118 H (78-110) mg/dL Mean Blood Glucose mg/dL Hemoglobin A1c (4.2-6.0) % Calculated Osmolality 272.0 (267-292) mOsm/kg Calcium 9.5 (8.7-10.7) mg/dL Magnesium 1.6 (1.6-2.4) mg/dL Total Bilirubin 1.0 (0.3-1.2) mg/dL AST 24 (21-57) IU/L ALT 39 (21-72) IU/L Alkaline Phosphatase 97 (38-126) IU/L Troponin I < 0.012 (< 0.040) ng/mL Total Protein 6.8 (6.1-8.0) g/dL Albumin 3.9 (3.5-4.8) g/dL Globulin 2.9 (2.50-4.10) g/dL Albumin/Globulin Ratio 1.30 (1.3-2.0) mg/g Vitamin B12 (239-931) pg/mL Vitamin D 25-Hydroxy (30-100) NG/ML Serum Folate (2.76-20.0) NG/ML TSH (0.2700-4.2000) uIU/mL Free T4 (0.93-1.71) ng/dL Ur Collection Type Urine Color (Y) Urine Clarity (CLEAR) Urine pH (5.0-8.5) Ur Specific [place] (1.005-1.030) Urine Protein (NEG) mg/dl Urine Glucose (UA) (NEG) mg/dL Urine Ketones (NEG) Urine Occult Blood (NEG) Urine Nitrate (NEG) Urine Bilirubin (NEG) Urine Urobilinogen (0.2) EU/dL Ur Leukocyte Esterase (NEG) Blood Type Antibody Screen Crossmatch 10/19/16 10/19/16 10/19/16 Range/Units 04:11 04:11 04:30 WBC 11.25 H (4.8-10.8) 10^3/uL RBC 2.62 L (4.70-6.10) 10^6/uL Hgb 8.0 L (14.0-18.0) g/dL Hct 23.9 L (42.0-52.0) % MCV 91.2 H (80-90) FL MCH 30.5 (27-31) PG MCHC 33.5 (33-37) g/dL RDW Std Deviation 46.6 (39-50) fL RDW Coeff of [place] 14.7 H (11.5-14.5) % Plt Count 130 L (140-350) 10*3/uL MPV 9.9 (7.4-12.2) FL Immature Gran % (Auto) 0.3 (0-5) % Neut % (Auto) 73.1 (50-80) % Lymph % (Auto) 13.8 (10-50) % [place] % (Auto) 9.6 (5-15) % Eos % (Auto) 2.8 (0-8) % Baso % (Auto) 0.4 (0-1) % Immature Gran # (Auto) 0.03 10*3/UL Neut # (Auto) 8.23 10*3/UL Lymph # (Auto) 1.55 10*3/uL [place] # (Auto) 1.08 H (0.3-0.8) 10*3/UL Eos # (Auto) 0.31 10*3/UL Baso # (Auto) 0.05 10*3/UL WBC Morphology Comment Normal morphology (NORM) Plt Morphology Comment Normal morphology (NORM) RBC Morph Comment Normal morphology (NORM) PT (9.7-11.4) secs INR (0.00-5.90) N/A Sodium 128 L (135-145) meq/L Potassium 4.4 (3.8-5.2) meq/L Chloride 96 L (98-112) meq/L Carbon Dioxide 25 (23-33) meq/L Anion Gap 7 (5-20) BUN 15 (7-22) mg/dL Creatinine 0.9 (0.70-1.50) mg/dL Estimated GFR > 60 (>60 ml/min/1.73m(2)) BUN/Creatinine Ratio 16.66 (6-20) Glucose 116 H (78-110) mg/dL Mean Blood Glucose mg/dL Hemoglobin A1c (4.2-6.0) % Calculated Osmolality 267.0 (267-292) mOsm/kg Calcium 9.0 (8.7-10.7) mg/dL Magnesium (1.6-2.4) mg/dL Total Bilirubin (0.3-1.2) mg/dL AST (21-57) IU/L ALT (21-72) IU/L Alkaline Phosphatase (38-126) IU/L Troponin I (< 0.040) ng/mL Total Protein (6.1-8.0) g/dL Albumin (3.5-4.8) g/dL Globulin (2.50-4.10) g/dL Albumin/Globulin Ratio (1.3-2.0) mg/g Vitamin B12 (239-931) pg/mL Vitamin D 25-Hydroxy (30-100) NG/ML Serum Folate (2.76-20.0) NG/ML TSH (0.2700-4.2000) uIU/mL Free T4 (0.93-1.71) ng/dL Ur Collection Type Clean catch urine Urine Color Yellow (Y) Urine Clarity Clear (CLEAR) Urine pH 6.0 (5.0-8.5) Ur Specific [place] 1.015 (1.005-1.030) Urine Protein Negative (NEG) mg/dl Urine Glucose (UA) Negative (NEG) mg/dL Urine Ketones Negative (NEG) Urine Occult Blood Negative (NEG) Urine Nitrate Negative (NEG) Urine Bilirubin Negative (NEG) Urine Urobilinogen 0.2 (0.2) EU/dL Ur Leukocyte Esterase Negative (NEG) Blood Type Antibody Screen Crossmatch 10/19/16 10/19/16 10/19/16 Range/Units 08:45 12:41 13:46 WBC 13.33 H (4.8-10.8) 10^3/uL RBC 3.10 L (4.70-6.10) 10^6/uL Hgb 9.4 L (14.0-18.0) g/dL Hct 28.3 L (42.0-52.0) % MCV 91.3 H (80-90) FL MCH 30.3 (27-31) PG MCHC 33.2 (33-37) g/dL RDW Std Deviation 48.1 (39-50) fL RDW Coeff of [place] 14.9 H (11.5-14.5) % Plt Count 124 L (140-350) 10*3/uL MPV 9.3 (7.4-12.2) FL Immature Gran % (Auto) 0.2 (0-5) % Neut % (Auto) 90.8 H (50-80) % Lymph % (Auto) 6.6 L (10-50) % [place] % (Auto) 2.0 L (5-15) % Eos % (Auto) 0.2 (0-8) % Baso % (Auto) 0.2 (0-1) % Immature Gran # (Auto) 0.03 10*3/UL Neut # (Auto) 12.12 10*3/UL Lymph # (Auto) 0.88 10*3/uL [place] # (Auto) 0.26 L (0.3-0.8) 10*3/UL Eos # (Auto) 0.02 10*3/UL Baso # (Auto) 0.02 10*3/UL WBC Morphology Comment See comments (NORM) Plt Morphology Comment Normal morphology (NORM) RBC Morph Comment Normal morphology (NORM) PT (9.7-11.4) secs INR (0.00-5.90) N/A Sodium 129 L (135-145) meq/L Potassium 5.2 (3.8-5.2) meq/L Chloride 97 L (98-112) meq/L Carbon Dioxide 22 L (23-33) meq/L Anion Gap 10 (5-20) BUN 15 (7-22) mg/dL Creatinine 0.9 (0.70-1.50) mg/dL Estimated GFR > 60 (>60 ml/min/1.73m(2)) BUN/Creatinine Ratio 16.66 (6-20) Glucose 129 H (78-110) mg/dL Mean Blood Glucose mg/dL Hemoglobin A1c (4.2-6.0) % Calculated Osmolality 270.0 (267-292) mOsm/kg Calcium 9.3 (8.7-10.7) mg/dL Magnesium (1.6-2.4) mg/dL Total Bilirubin 1.0 (0.3-1.2) mg/dL AST 19 L (21-57) IU/L ALT 37 (21-72) IU/L Alkaline Phosphatase 77 (38-126) IU/L Troponin I (< 0.040) ng/mL Total Protein 6.3 (6.1-8.0) g/dL Albumin 3.6 (3.5-4.8) g/dL Globulin 2.7 (2.50-4.10) g/dL Albumin/Globulin Ratio 1.30 (1.3-2.0) mg/g Vitamin B12 (239-931) pg/mL Vitamin D 25-Hydroxy (30-100) NG/ML Serum Folate (2.76-20.0) NG/ML TSH (0.2700-4.2000) uIU/mL Free T4 (0.93-1.71) ng/dL Ur Collection Type Urine Color (Y) Urine Clarity (CLEAR) Urine pH (5.0-8.5) Ur Specific [place] (1.005-1.030) Urine Protein (NEG) mg/dl Urine Glucose (UA) (NEG) mg/dL Urine Ketones (NEG) Urine Occult Blood (NEG) Urine Nitrate (NEG) Urine Bilirubin (NEG) Urine Urobilinogen (0.2) EU/dL Ur Leukocyte Esterase (NEG) Blood Type O POSITIVE Antibody Screen Negative Crossmatch See Detail 10/20/16 10/20/16 10/20/16 Range/Units 03:53 03:53 04:30 WBC 16.12 H (4.8-10.8) 10^3/uL RBC 2.88 L (4.70-6.10) 10^6/uL Hgb 8.6 L (14.0-18.0) g/dL Hct 25.8 L (42.0-52.0) % MCV 89.6 (80-90) FL MCH 29.9 (27-31) PG MCHC 33.3 (33-37) g/dL RDW Std Deviation 46.7 (39-50) fL RDW Coeff of [place] 14.8 H (11.5-14.5) % Plt Count 103 L (140-350) 10*3/uL MPV 10.3 (7.4-12.2) FL Immature Gran % (Auto) 0.4 (0-5) % Neut % (Auto) 81.0 H (50-80) % Lymph % (Auto) 8.8 L (10-50) % [place] % (Auto) 9.6 (5-15) % Eos % (Auto) 0.1 (0-8) % Baso % (Auto) 0.1 (0-1) % Immature Gran # (Auto) 0.07 10*3/UL Neut # (Auto) 13.06 10*3/UL Lymph # (Auto) 1.42 10*3/uL [place] # (Auto) 1.55 H (0.3-0.8) 10*3/UL Eos # (Auto) 0.01 10*3/UL Baso # (Auto) 0.01 10*3/UL WBC Morphology Comment Normal morphology (NORM) Plt Morphology Comment Normal morphology (NORM) RBC Morph Comment Normal morphology (NORM) PT (9.7-11.4) secs INR (0.00-5.90) N/A Sodium 130 L (135-145) meq/L Potassium 4.4 (3.8-5.2) meq/L Chloride 98 (98-112) meq/L Carbon Dioxide 23 (23-33) meq/L Anion Gap 9 (5-20) BUN 18 (7-22) mg/dL Creatinine 0.8 (0.70-1.50) mg/dL Estimated GFR > 60 (>60 ml/min/1.73m(2)) BUN/Creatinine Ratio 22.50 H (6-20) Glucose 165 H (78-110) mg/dL Mean Blood Glucose mg/dL Hemoglobin A1c (4.2-6.0) % Calculated Osmolality 275.0 (267-292) mOsm/kg Calcium 8.9 (8.7-10.7) mg/dL Magnesium (1.6-2.4) mg/dL Total Bilirubin (0.3-1.2) mg/dL AST (21-57) IU/L ALT (21-72) IU/L Alkaline Phosphatase (38-126) IU/L Troponin I < 0.012 (< 0.040) ng/mL Total Protein (6.1-8.0) g/dL Albumin (3.5-4.8) g/dL Globulin (2.50-4.10) g/dL Albumin/Globulin Ratio (1.3-2.0) mg/g Vitamin B12 (239-931) pg/mL Vitamin D 25-Hydroxy (30-100) NG/ML Serum Folate (2.76-20.0) NG/ML TSH (0.2700-4.2000) uIU/mL Free T4 (0.93-1.71) ng/dL Ur Collection Type Urine Color (Y) Urine Clarity (CLEAR) Urine pH (5.0-8.5) Ur Specific [place] (1.005-1.030) Urine Protein (NEG) mg/dl Urine Glucose (UA) (NEG) mg/dL Urine Ketones (NEG) Urine Occult Blood (NEG) Urine Nitrate (NEG) Urine Bilirubin (NEG) Urine Urobilinogen (0.2) EU/dL Ur Leukocyte Esterase (NEG) Blood Type Antibody Screen Crossmatch 10/20/16 10/20/16 10/21/16 Range/Units 04:30 04:30 04:30 WBC (4.8-10.8) 10^3/uL RBC (4.70-6.10) 10^6/uL Hgb (14.0-18.0) g/dL Hct (42.0-52.0) % MCV (80-90) FL MCH (27-31) PG MCHC (33-37) g/dL RDW Std Deviation (39-50) fL RDW Coeff of [place] (11.5-14.5) % Plt Count (140-350) 10*3/uL MPV (7.4-12.2) FL Immature Gran % (Auto) (0-5) % Neut % (Auto) (50-80) % Lymph % (Auto) (10-50) % [place] % (Auto) (5-15) % Eos % (Auto) (0-8) % Baso % (Auto) (0-1) % Immature Gran # (Auto) 10*3/UL Neut # (Auto) 10*3/UL Lymph # (Auto) 10*3/uL [place] # (Auto) (0.3-0.8) 10*3/UL Eos # (Auto) 10*3/UL Baso # (Auto) 10*3/UL WBC Morphology Comment (NORM) Plt Morphology Comment (NORM) RBC Morph Comment (NORM) PT (9.7-11.4) secs INR (0.00-5.90) N/A Sodium 128 L (135-145) meq/L Potassium 4.5 (3.8-5.2) meq/L Chloride 96 L (98-112) meq/L Carbon Dioxide 24 (23-33) meq/L Anion Gap 8 (5-20) BUN 22 (7-22) mg/dL Creatinine 0.9 (0.70-1.50) mg/dL Estimated GFR > 60 (>60 ml/min/1.73m(2)) BUN/Creatinine Ratio 24.44 H (6-20) Glucose 106 (78-110) mg/dL Mean Blood Glucose 92.488 mg/dL Hemoglobin A1c 5.36 (4.2-6.0) % Calculated Osmolality 268.0 (267-292) mOsm/kg Calcium 8.8 (8.7-10.7) mg/dL Magnesium (1.6-2.4) mg/dL Total Bilirubin (0.3-1.2) mg/dL AST (21-57) IU/L ALT (21-72) IU/L Alkaline Phosphatase (38-126) IU/L Troponin I (< 0.040) ng/mL Total Protein (6.1-8.0) g/dL Albumin (3.5-4.8) g/dL Globulin (2.50-4.10) g/dL Albumin/Globulin Ratio (1.3-2.0) mg/g Vitamin B12 (239-931) pg/mL Vitamin D 25-Hydroxy (30-100) NG/ML Serum Folate (2.76-20.0) NG/ML TSH 0.249 L (0.2700-4.2000) uIU/mL Free T4 1.61 (0.93-1.71) ng/dL Ur Collection Type Urine Color (Y) Urine Clarity (CLEAR) Urine pH (5.0-8.5) Ur Specific [place] (1.005-1.030) Urine Protein (NEG) mg/dl Urine Glucose (UA) (NEG) mg/dL Urine Ketones (NEG) Urine Occult Blood (NEG) Urine Nitrate (NEG) Urine Bilirubin (NEG) Urine Urobilinogen (0.2) EU/dL Ur Leukocyte Esterase (NEG) Blood Type Antibody Screen Crossmatch 10/21/16 10/22/16 10/22/16 Range/Units 04:30 05:10 05:10 WBC 14.42 H 14.42 H (4.8-10.8) 10^3/uL RBC 2.39 L 3.29 L (4.70-6.10) 10^6/uL Hgb 7.2 L 10.0 L (14.0-18.0) g/dL Hct 21.7 L 29.7 L (42.0-52.0) % MCV 90.8 H 90.3 H (80-90) FL MCH 30.1 30.4 (27-31) PG MCHC 33.2 33.7 (33-37) g/dL RDW Std Deviation 46.9 46.6 (39-50) fL RDW Coeff of [place] 14.9 H 14.7 H (11.5-14.5) % Plt Count 102 L 129 L (140-350) 10*3/uL MPV 9.8 9.9 (7.4-12.2) FL Immature Gran % (Auto) 0.4 0.5 (0-5) % Neut % (Auto) 72.1 74.1 (50-80) % Lymph % (Auto) 13.7 11.7 (10-50) % [place] % (Auto) 11.4 12.3 (5-15) % Eos % (Auto) 2.3 1.3 (0-8) % Baso % (Auto) 0.1 0.1 (0-1) % Immature Gran # (Auto) 0.06 0.07 10*3/UL Neut # (Auto) 10.39 10.68 10*3/UL Lymph # (Auto) 1.97 1.68 10*3/uL [place] # (Auto) 1.65 H 1.78 H (0.3-0.8) 10*3/UL Eos # (Auto) 0.33 0.19 10*3/UL Baso # (Auto) 0.02 0.02 10*3/UL WBC Morphology Comment Normal morphology Normal morphology (NORM) Plt Morphology Comment Normal morphology Normal morphology (NORM) RBC Morph Comment See comments Normal morphology (NORM) PT (9.7-11.4) secs INR (0.00-5.90) N/A Sodium 129 L (135-145) meq/L Potassium 4.1 (3.8-5.2) meq/L Chloride 94 L (98-112) meq/L Carbon Dioxide 25 (23-33) meq/L Anion Gap 10 (5-20) BUN 17 (7-22) mg/dL Creatinine 0.8 (0.70-1.50) mg/dL Estimated GFR > 60 (>60 ml/min/1.73m(2)) BUN/Creatinine Ratio 21.25 H (6-20) Glucose 102 (78-110) mg/dL Mean Blood Glucose mg/dL Hemoglobin A1c (4.2-6.0) % Calculated Osmolality 269.0 (267-292) mOsm/kg Calcium 9.4 (8.7-10.7) mg/dL Magnesium (1.6-2.4) mg/dL Total Bilirubin (0.3-1.2) mg/dL AST (21-57) IU/L ALT (21-72) IU/L Alkaline Phosphatase (38-126) IU/L Troponin I (< 0.040) ng/mL Total Protein (6.1-8.0) g/dL Albumin (3.5-4.8) g/dL Globulin (2.50-4.10) g/dL Albumin/Globulin Ratio (1.3-2.0) mg/g Vitamin B12 (239-931) pg/mL Vitamin D 25-Hydroxy (30-100) NG/ML Serum Folate (2.76-20.0) NG/ML TSH (0.2700-4.2000) uIU/mL Free T4 (0.93-1.71) ng/dL Ur Collection Type Urine Color (Y) Urine Clarity (CLEAR) Urine pH (5.0-8.5) Ur Specific [place] (1.005-1.030) Urine Protein (NEG) mg/dl Urine Glucose (UA) (NEG) mg/dL Urine Ketones (NEG) Urine Occult Blood (NEG) Urine Nitrate (NEG) Urine Bilirubin (NEG) Urine Urobilinogen (0.2) EU/dL Ur Leukocyte Esterase (NEG) Blood Type Antibody Screen Crossmatch 10/23/16 10/23/16 10/23/16 Range/Units 04:15 04:15 17:41 WBC 13.56 H (4.8-10.8) 10^3/uL RBC 3.13 L (4.70-6.10) 10^6/uL Hgb 9.6 L (14.0-18.0) g/dL Hct 28.5 L (42.0-52.0) % MCV 91.1 H (80-90) FL MCH 30.7 (27-31) PG MCHC 33.7 (33-37) g/dL RDW Std Deviation 46.5 (39-50) fL RDW Coeff of [place] 14.7 H (11.5-14.5) % Plt Count 149 (140-350) 10*3/uL MPV 9.7 (7.4-12.2) FL Immature Gran % (Auto) (0-5) % Neut % (Auto) (50-80) % Lymph % (Auto) (10-50) % [place] % (Auto) (5-15) % Eos % (Auto) (0-8) % Baso % (Auto) (0-1) % Immature Gran # (Auto) 10*3/UL Neut # (Auto) 10*3/UL Lymph # (Auto) 10*3/uL [place] # (Auto) (0.3-0.8) 10*3/UL Eos # (Auto) 10*3/UL Baso # (Auto) 10*3/UL WBC Morphology Comment (NORM) Plt Morphology Comment (NORM) RBC Morph Comment (NORM) PT (9.7-11.4) secs INR (0.00-5.90) N/A Sodium 133 L (135-145) meq/L Potassium 3.6 L (3.8-5.2) meq/L Chloride 96 L (98-112) meq/L Carbon Dioxide 25 (23-33) meq/L Anion Gap 12 (5-20) BUN 22 (7-22) mg/dL Creatinine 0.8 (0.70-1.50) mg/dL Estimated GFR > 60 (>60 ml/min/1.73m(2)) BUN/Creatinine Ratio 27.50 H (6-20) Glucose 153 H (78-110) mg/dL Mean Blood Glucose mg/dL Hemoglobin A1c (4.2-6.0) % Calculated Osmolality 281.0 (267-292) mOsm/kg Calcium 9.1 (8.7-10.7) mg/dL Magnesium 1.8 (1.6-2.4) mg/dL Total Bilirubin 1.0 (0.3-1.2) mg/dL AST 29 (21-57) IU/L ALT 36 (21-72) IU/L Alkaline Phosphatase 75 (38-126) IU/L Troponin I (< 0.040) ng/mL Total Protein 5.9 L (6.1-8.0) g/dL Albumin 3.1 L (3.5-4.8) g/dL Globulin 2.8 (2.50-4.10) g/dL Albumin/Globulin Ratio 1.10 L (1.3-2.0) mg/g Vitamin B12 617 (239-931) pg/mL Vitamin D 25-Hydroxy 29.1 L (30-100) NG/ML Serum Folate 19.0 (2.76-20.0) NG/ML TSH (0.2700-4.2000) uIU/mL Free T4 (0.93-1.71) ng/dL Ur Collection Type Urine Color (Y) Urine Clarity (CLEAR) Urine pH (5.0-8.5) Ur Specific [place] (1.005-1.030) Urine Protein (NEG) mg/dl Urine Glucose (UA) (NEG) mg/dL Urine Ketones (NEG) Urine Occult Blood (NEG) Urine Nitrate (NEG) Urine Bilirubin (NEG) Urine Urobilinogen (0.2) EU/dL Ur Leukocyte Esterase (NEG) Blood Type Antibody Screen Crossmatch 10/24/16 10/24/16 10/24/16 Range/Units 03:53 03:53 09:42 WBC 10.69 (4.8-10.8) 10^3/uL RBC 2.60 L (4.70-6.10) 10^6/uL Hgb 8.0 L (14.0-18.0) g/dL Hct 24.2 L (42.0-52.0) % MCV 93.1 H (80-90) FL MCH 30.8 (27-31) PG MCHC 33.1 (33-37) g/dL RDW Std Deviation 47.5 (39-50) fL RDW Coeff of [place] 14.7 H (11.5-14.5) % Plt Count 171 (140-350) 10*3/uL MPV 9.5 (7.4-12.2) FL Immature Gran % (Auto) 0.6 (0-5) % Neut % (Auto) 72.9 (50-80) % Lymph % (Auto) 13.1 (10-50) % [place] % (Auto) 12.0 (5-15) % Eos % (Auto) 1.2 (0-8) % Baso % (Auto) 0.2 (0-1) % Immature Gran # (Auto) 0.06 10*3/UL Neut # (Auto) 7.80 10*3/UL Lymph # (Auto) 1.40 10*3/uL [place] # (Auto) 1.28 H (0.3-0.8) 10*3/UL Eos # (Auto) 0.13 10*3/UL Baso # (Auto) 0.02 10*3/UL WBC Morphology Comment Normal morphology (NORM) Plt Morphology Comment Normal morphology (NORM) RBC Morph Comment Normal morphology (NORM) PT (9.7-11.4) secs INR (0.00-5.90) N/A Sodium 135 (135-145) meq/L Potassium 3.8 (3.8-5.2) meq/L Chloride 101 (98-112) meq/L Carbon Dioxide 25 (23-33) meq/L Anion Gap 9 (5-20) BUN 22 (7-22) mg/dL Creatinine 0.8 (0.70-1.50) mg/dL Estimated GFR > 60 (>60 ml/min/1.73m(2)) BUN/Creatinine Ratio 27.50 H (6-20) Glucose 128 H (78-110) mg/dL Mean Blood Glucose mg/dL Hemoglobin A1c (4.2-6.0) % Calculated Osmolality 284.0 (267-292) mOsm/kg Calcium 8.6 L (8.7-10.7) mg/dL Magnesium 2.2 (1.6-2.4) mg/dL Total Bilirubin 0.9 (0.3-1.2) mg/dL AST 23 (21-57) IU/L ALT 37 (21-72) IU/L Alkaline Phosphatase 73 (38-126) IU/L Troponin I (< 0.040) ng/mL Total Protein 5.5 L (6.1-8.0) g/dL Albumin 2.8 L (3.5-4.8) g/dL Globulin 2.7 (2.50-4.10) g/dL Albumin/Globulin Ratio 1.00 L (1.3-2.0) mg/g Vitamin B12 (239-931) pg/mL Vitamin D 25-Hydroxy (30-100) NG/ML Serum Folate (2.76-20.0) NG/ML TSH (0.2700-4.2000) uIU/mL Free T4 (0.93-1.71) ng/dL Ur Collection Type Urine Color (Y) Urine Clarity (CLEAR) Urine pH (5.0-8.5) Ur Specific [place] (1.005-1.030) Urine Protein (NEG) mg/dl Urine Glucose (UA) (NEG) mg/dL Urine Ketones (NEG) Urine Occult Blood (NEG) Urine Nitrate (NEG) Urine Bilirubin (NEG) Urine Urobilinogen (0.2) EU/dL Ur Leukocyte Esterase (NEG) Blood Type O POSITIVE Antibody Screen Negative Crossmatch See Detail 10/25/16 10/25/16 10/25/16 Range/Units 04:39 13:32 13:34 WBC 8.56 14.81 H (4.8-10.8) 10^3/uL RBC 3.00 L 3.19 L (4.70-6.10) 10^6/uL Hgb 9.0 L 9.9 L (14.0-18.0) g/dL Hct 27.2 L 29.4 L (42.0-52.0) % MCV 90.7 H 92.2 H (80-90) FL MCH 30.0 31.0 (27-31) PG MCHC 33.1 33.7 (33-37) g/dL RDW Std Deviation 48.2 49.7 (39-50) fL RDW Coeff of [place] 14.9 H 15.3 H (11.5-14.5) % Plt Count 176 213 (140-350) 10*3/uL MPV 9.4 9.7 (7.4-12.2) FL Immature Gran % (Auto) (0-5) % Neut % (Auto) (50-80) % Lymph % (Auto) (10-50) % [place] % (Auto) (5-15) % Eos % (Auto) (0-8) % Baso % (Auto) (0-1) % Immature Gran # (Auto) 10*3/UL Neut # (Auto) 10*3/UL Lymph # (Auto) 10*3/uL [place] # (Auto) (0.3-0.8) 10*3/UL Eos # (Auto) 10*3/UL Baso # (Auto) 10*3/UL WBC Morphology Comment (NORM) Plt Morphology Comment (NORM) RBC Morph Comment (NORM) PT 11.3 (9.7-11.4) secs INR 1.07 (0.00-5.90) N/A Sodium (135-145) meq/L Potassium (3.8-5.2) meq/L Chloride (98-112) meq/L Carbon Dioxide (23-33) meq/L Anion Gap (5-20) BUN (7-22) mg/dL Creatinine (0.70-1.50) mg/dL Estimated GFR (>60 ml/min/1.73m(2)) BUN/Creatinine Ratio (6-20) Glucose (78-110) mg/dL Mean Blood Glucose mg/dL Hemoglobin A1c (4.2-6.0) % Calculated Osmolality (267-292) mOsm/kg Calcium (8.7-10.7) mg/dL Magnesium (1.6-2.4) mg/dL Total Bilirubin (0.3-1.2) mg/dL AST (21-57) IU/L ALT (21-72) IU/L Alkaline Phosphatase (38-126) IU/L Troponin I (< 0.040) ng/mL Total Protein (6.1-8.0) g/dL Albumin (3.5-4.8) g/dL Globulin (2.50-4.10) g/dL Albumin/Globulin Ratio (1.3-2.0) mg/g Vitamin B12 (239-931) pg/mL Vitamin D 25-Hydroxy (30-100) NG/ML Serum Folate (2.76-20.0) NG/ML TSH (0.2700-4.2000) uIU/mL Free T4 (0.93-1.71) ng/dL Ur Collection Type Urine Color (Y) Urine Clarity (CLEAR) Urine pH (5.0-8.5) Ur Specific [place] (1.005-1.030) Urine Protein (NEG) mg/dl Urine Glucose (UA) (NEG) mg/dL Urine Ketones (NEG) Urine Occult Blood (NEG) Urine Nitrate (NEG) Urine Bilirubin (NEG) Urine Urobilinogen (0.2) EU/dL Ur Leukocyte Esterase (NEG) Blood Type Antibody Screen Crossmatch 10/26/16 10/26/16 10/27/16 Range/Units 05:00 05:11 04:02 WBC 10.47 10.97 H (4.8-10.8) 10^3/uL RBC 2.87 L 2.84 L (4.70-6.10) 10^6/uL Hgb 8.7 L 8.7 L (14.0-18.0) g/dL Hct 26.4 L 26.0 L (42.0-52.0) % MCV 92.0 H 91.5 H (80-90) FL MCH 30.3 30.6 (27-31) PG MCHC 33.0 33.5 (33-37) g/dL RDW Std Deviation 47.5 47.2 (39-50) fL RDW Coeff of [place] 14.9 H 14.8 H (11.5-14.5) % Plt Count 211 240 (140-350) 10*3/uL MPV 9.6 9.0 (7.4-12.2) FL Immature Gran % (Auto) 1.0 (0-5) % Neut % (Auto) 74.8 (50-80) % Lymph % (Auto) 11.6 (10-50) % [place] % (Auto) 11.4 (5-15) % Eos % (Auto) 1.1 (0-8) % Baso % (Auto) 0.1 (0-1) % Immature Gran # (Auto) 0.10 10*3/UL Neut # (Auto) 7.85 10*3/UL Lymph # (Auto) 1.21 10*3/uL [place] # (Auto) 1.19 H (0.3-0.8) 10*3/UL Eos # (Auto) 0.11 10*3/UL Baso # (Auto) 0.01 10*3/UL WBC Morphology Comment Normal morphology (NORM) Plt Morphology Comment Normal morphology (NORM) RBC Morph Comment Normal morphology (NORM) PT (9.7-11.4) secs INR (0.00-5.90) N/A Sodium 135 (135-145) meq/L Potassium 4.0 (3.8-5.2) meq/L Chloride 105 (98-112) meq/L Carbon Dioxide 21 L (23-33) meq/L Anion Gap 9 (5-20) BUN 26 H (7-22) mg/dL Creatinine 0.7 (0.70-1.50) mg/dL Estimated GFR > 60 (>60 ml/min/1.73m(2)) BUN/Creatinine Ratio 37.14 H (6-20) Glucose 91 (78-110) mg/dL Mean Blood Glucose mg/dL Hemoglobin A1c (4.2-6.0) % Calculated Osmolality 284.0 (267-292) mOsm/kg Calcium 9.0 (8.7-10.7) mg/dL Magnesium (1.6-2.4) mg/dL Total Bilirubin 1.8 H (0.3-1.2) mg/dL AST 33 (21-57) IU/L ALT 39 (21-72) IU/L Alkaline Phosphatase 64 (38-126) IU/L Troponin I (< 0.040) ng/mL Total Protein 5.5 L (6.1-8.0) g/dL Albumin 2.8 L (3.5-4.8) g/dL Globulin 2.7 (2.50-4.10) g/dL Albumin/Globulin Ratio 1.00 L (1.3-2.0) mg/g Vitamin B12 (239-931) pg/mL Vitamin D 25-Hydroxy (30-100) NG/ML Serum Folate (2.76-20.0) NG/ML TSH (0.2700-4.2000) uIU/mL Free T4 (0.93-1.71) ng/dL Ur Collection Type Urine Color (Y) Urine Clarity (CLEAR) Urine pH (5.0-8.5) Ur Specific [place] (1.005-1.030) Urine Protein (NEG) mg/dl Urine Glucose (UA) (NEG) mg/dL Urine Ketones (NEG) Urine Occult Blood (NEG) Urine Nitrate (NEG) Urine Bilirubin (NEG) Urine Urobilinogen (0.2) EU/dL Ur Leukocyte Esterase (NEG) Blood Type Antibody Screen Crossmatch Objective : Exam - General General Appearance: No Acute Distress, Cooperative Additional General Exam Details: Vital Signs - Last Taken Temperature 98.3 F 10/28/16 12:45 Pulse Rate 80 10/28/16 12:45 Respiratory Rate 20 10/28/16 12:45 Blood Pressure 122/73 10/28/16 12:45 Pulse Ox 95 10/28/16 12:45 - ENT ENT Exam: Mucous Membranes Moist - Respiratory Respiratory Exam: Clear to Auscultation - Bilaterally, Breathing Non Labored - Cardiovascular Cardiovascular Exam: RRR, No Murmur, No Clicks, No Gallops, No Rubs, No JVD - GI/Abdominal GI/Abdominal Exam: Normal Bowel Sounds, Non Tender, Non Distended, Soft - Extremities Extremities Exam: No Clubbing Present, No Edema Present, No Cyanosis Present Additional Extremities Exam Details: Since I saw the patient last, significant decrease in swelling and right hip/ thigh region. Dressing is clean, dry, intact. We were able to get the patient ambulate about 80 feet, and was quite difficult to do that. - Neurological Neurological Exam: Alert, Oriented x 3, No Facial Droop, Speech Intact / Clear Assessment and Plan - Patient Problems (1) Diabetes Current Visit: Yes Status: Acute Code(s): E11.9 - Type 2 diabetes mellitus without complications Qualifiers: Diabetes mellitus type: type 2 Diabetes mellitus complication status: without complication Diabetes mellitus long term care phlebotomist insulin use: without long term care phlebotomist use Qualified Code(s): E11.9 - Type 2 diabetes mellitus without complications (2) Hypertension Current Visit: Yes Status: Acute Code(s): I10 - Essential (primary) hypertension Qualifiers: Hypertension type: essential hypertension Qualified Code(s): I10 - Essential (primary) hypertension (3) Postoperative anemia Current Visit: Yes Status: Acute Code(s): D64.9 - Anemia, unspecified (4) Closed right hip fracture Current Visit: Yes Status: Acute Code(s): S72.001A - Fracture of unspecified part of neck of right femur, initial encounter for closed fracture Qualifiers: Encounter type: subsequent encounter Fracture healing: with routine healing Qualified Code(s): S72.001D - Fracture of unspecified part of neck of right femur, subsequent encounter for closed fracture with routine healing (5) Chronic hyponatremia Current Visit: Yes Status: Resolved Code(s): E87.1 - Hypo-osmolality and hyponatremia (6) Hypokalemia Current Visit: Yes Status: Resolved Code(s): E87.6 - Hypokalemia (7) Postoperative ileus Current Visit: Yes Status: Resolved Code(s): K91.89 - Other postprocedural complications and disorders of digestive system; K56.7 - Ileus, unspecified - Assessment / Plan Additional Assessment/Plan Details: Overall, encouraging that the ileus has resolved. The patient really has some motivational issues in terms of participating in therapy. I think he will make some progress on the swing bed, but it may take some time. We may need to really screen for postoperative depression or situational depression and consider that in her therapy as well. I told the patient that really his best chance of improvement after her hip fracture is movement. Continue DVT prophylaxis. However, due to this patient's oozing and bleeding issues he is really not a good candidate for Lovenox therapy or Xarelto therapy. He really is not the best candidate for aspirin either. His best defense is to walk. I discussed this with him in depth. No changes for his diabetes, or hypertension. I spoke with orthopedics regarding the patient. Hopefully swing bed early this week. He would like to swing here.
[2016-10-28] MEDS: traMADol 50 MG TABLET PO PRN (17:49)
[2016-10-28] MEDS: ACETAMINOPHEN 325 MG TABLET PO PRN (17:49)
[2016-10-29] MEDS: ACETAMINOPHEN 325 MG TABLET PO PRN (02:25)
[2016-10-29 05:25] LABS: Hematocrit [HCT] 29.6 % (42.0-52.0); Hemoglobin [HGB] 9.9 g/dL (14.0-18.0); MEAN CORPUSCULAR HEMOGLOBIN 30.3 PG (27-31); MEAN CORPUSCULAR HGB CONC 33.4 g/dL (33-37); MEAN CORPUSCULAR VOLUME 90.5 FL (80-90); MEAN PLATELET VOLUME 9.9 FL (7.4-12.2); RED BLOOD COUNT 3.27 10^6/uL (4.70-6.10)
[2016-10-29 05:44] LABS: BLOOD UREA NITROGEN 20 mg/dL (7-22); BUN/CREATININE RATIO 28.57 (6-20)
[2016-10-29] MEDS: Pantoprazole Inj 40 MG in Normal Saline Flush 10 ML IVP SCH (08:43)
[2016-10-29] MEDS: ALLOPURINOL 100 MG TABLET PO SCH (08:46)
[2016-10-29] MEDS: FERROUS GLUCONATE 324 MG TABLET PO SCH (08:46)
[2016-10-29] MEDS: FOLIC ACID 1 MG TABLET PO SCH (08:46)
--- NOTE | 2016-10-29 09:18 | ORTHO.PROG ---
Last Taken Vital Signs: Vital Signs - Last Taken Temperature 97.7 F 10/29/16 09:00 Pulse Rate 66 10/29/16 09:00 Respiratory Rate 20 10/29/16 09:00 Blood Pressure 133/77 10/29/16 09:00 Pulse Ox 94 10/29/16 09:00 Subjective: Patient with advanced arthritis both shoulders he notes that shot worked for a couple days into each shoulder notes the right hip and leg pain is getting better Objective: Examination shows that the patient has limited her motion of the shoulders are without obvious rotator cuff arthropathy bilaterally, motor and sensory exam nonfocal Examination of the right lower extremity shows extensive ecchymosis he has Band- Aids over the incisions from the hip joint region down to the knee the distal incisions as well as the lag screw incision are clean and dry and dressing was kept off of these. The proximal incision had saturated 4 x 4's but the ABD pad was dry, this had been in place since Sunday evening. The leg had extensive ecchymosis. The skin was soft and supple with no evidence of abscess formation. Laboratory Results 10/29/16 10/29/16 Range/Units 04:25 04:25 WBC 15.17 H (4.8-10.8) 10^3/uL RBC 3.27 L (4.70-6.10) 10^6/uL Hgb 9.9 L (14.0-18.0) g/dL Hct 29.6 L (42.0-52.0) % MCV 90.5 H (80-90) FL MCH 30.3 (27-31) PG MCHC 33.4 (33-37) g/dL RDW Std Deviation 47.1 (39-50) fL RDW Coeff of [place] 14.8 H (11.5-14.5) % Plt Count 344 (140-350) 10*3/uL MPV 9.9 (7.4-12.2) FL Sodium 133 L (135-145) meq/L Potassium 3.7 L (3.8-5.2) meq/L Chloride 101 (98-112) meq/L Carbon Dioxide 21 L (23-33) meq/L Anion Gap 11 (5-20) BUN 20 (7-22) mg/dL Creatinine 0.7 (0.70-1.50) mg/dL Estimated GFR > 60 (>60 ml/min/1.73m(2)) BUN/Creatinine Ratio 28.57 H (6-20) Glucose 99 (78-110) mg/dL Calculated Osmolality 278.0 (267-292) mOsm/kg Calcium 9.3 (8.7-10.7) mg/dL Vital Signs (24 hrs) Temp Pulse Resp BP Pulse Ox 10/29/16 09:00 97.7 F 66 20 133/77 94 10/29/16 05:20 94 10/29/16 04:25 97.0 F 83 18 152/88 94 10/28/16 20:54 98.5 F 76 20 162/87 92 10/28/16 17:00 98.1 F 80 20 156/91 92 10/28/16 12:45 98.3 F 80 20 122/73 95 Assessment: Right peritrochanteric fracture with subtle medullary nail overall doing well, patient with advanced rheumatologic disease. Incisions improving on a daily basis with decrease of serosanguineous her dressing STOPPED except for most proximal incision Anemia Plan: We have redressed the proximal incision and left the other ones are open. We will have the patient continue with physical therapy and occupational therapy based on restrictions by Dr. Henderson secondary to poor quality of bone. Pain control seems to be good on current medications
[2016-10-29] MEDS ORDERED: POTASSIUM CHLORIDE 20 MEQ TAB PO ONE (11:27)
--- NOTE | 2016-10-29 18:41 | PDOC(PROG) ---
Date and Time of Service: 10/29/2016, 1835 Interval History: Patient did much better overnight. Pain is better controlled. His shoulders are significantly the worst problem for the patient's pain. He has bad, untreated, rheumatoid arthritis. It has been limiting in his therapy, but overall he feels like he's been contributing more. No chest pain and no shortness breath. He wants to do a swing bed here and not in [place]. Objective : Data - Labs CBC and BMP: 10/29/16 04:25 10/29/16 04:25 Additional Lab Results: Laboratory Results 10/18/16 10/18/16 10/18/16 Range/Units 20:30 20:30 20:30 WBC 15.43 H (4.8-10.8) 10^3/uL RBC 3.13 L (4.70-6.10) 10^6/uL Hgb 9.5 L (14.0-18.0) g/dL Hct 28.2 L (42.0-52.0) % MCV 90.1 H (80-90) FL MCH 30.4 (27-31) PG MCHC 33.7 (33-37) g/dL RDW Std Deviation 47.2 (39-50) fL RDW Coeff of [place] 14.8 H (11.5-14.5) % Plt Count 140 (140-350) 10*3/uL MPV 8.7 (7.4-12.2) FL Immature Gran % (Auto) 0.3 (0-5) % Neut % (Auto) 80.1 H (50-80) % Lymph % (Auto) 10.3 (10-50) % [place] % (Auto) 8.6 (5-15) % Eos % (Auto) 0.5 (0-8) % Baso % (Auto) 0.2 (0-1) % Immature Gran # (Auto) 0.05 10*3/UL Neut # (Auto) 12.36 10*3/UL Lymph # (Auto) 1.59 10*3/uL [place] # (Auto) 1.33 H (0.3-0.8) 10*3/UL Eos # (Auto) 0.07 10*3/UL Baso # (Auto) 0.03 10*3/UL WBC Morphology Comment Normal morphology (NORM) Plt Morphology Comment Normal morphology (NORM) RBC Morph Comment Normal morphology (NORM) PT (9.7-11.4) secs INR (0.00-5.90) N/A Sodium 130 L (135-145) meq/L Potassium 4.3 (3.8-5.2) meq/L Chloride 96 L (98-112) meq/L Carbon Dioxide 23 (23-33) meq/L Anion Gap 11 (5-20) BUN 18 (7-22) mg/dL Creatinine 1.0 (0.70-1.50) mg/dL Estimated GFR > 60 (>60 ml/min/1.73m(2)) BUN/Creatinine Ratio 18.00 (6-20) Glucose 118 H (78-110) mg/dL Mean Blood Glucose mg/dL Hemoglobin A1c (4.2-6.0) % Calculated Osmolality 272.0 (267-292) mOsm/kg Calcium 9.5 (8.7-10.7) mg/dL Magnesium 1.6 (1.6-2.4) mg/dL Total Bilirubin 1.0 (0.3-1.2) mg/dL AST 24 (21-57) IU/L ALT 39 (21-72) IU/L Alkaline Phosphatase 97 (38-126) IU/L Troponin I < 0.012 (< 0.040) ng/mL Total Protein 6.8 (6.1-8.0) g/dL Albumin 3.9 (3.5-4.8) g/dL Globulin 2.9 (2.50-4.10) g/dL Albumin/Globulin Ratio 1.30 (1.3-2.0) mg/g Vitamin B12 (239-931) pg/mL Vitamin D 25-Hydroxy (30-100) NG/ML Serum Folate (2.76-20.0) NG/ML TSH (0.2700-4.2000) uIU/mL Free T4 (0.93-1.71) ng/dL Ur Collection Type Urine Color (Y) Urine Clarity (CLEAR) Urine pH (5.0-8.5) Ur Specific [place] (1.005-1.030) Urine Protein (NEG) mg/dl Urine Glucose (UA) (NEG) mg/dL Urine Ketones (NEG) Urine Occult Blood (NEG) Urine Nitrate (NEG) Urine Bilirubin (NEG) Urine Urobilinogen (0.2) EU/dL Ur Leukocyte Esterase (NEG) Blood Type Antibody Screen Crossmatch 10/19/16 10/19/16 10/19/16 Range/Units 04:11 04:11 04:30 WBC 11.25 H (4.8-10.8) 10^3/uL RBC 2.62 L (4.70-6.10) 10^6/uL Hgb 8.0 L (14.0-18.0) g/dL Hct 23.9 L (42.0-52.0) % MCV 91.2 H (80-90) FL MCH 30.5 (27-31) PG MCHC 33.5 (33-37) g/dL RDW Std Deviation 46.6 (39-50) fL RDW Coeff of [place] 14.7 H (11.5-14.5) % Plt Count 130 L (140-350) 10*3/uL MPV 9.9 (7.4-12.2) FL Immature Gran % (Auto) 0.3 (0-5) % Neut % (Auto) 73.1 (50-80) % Lymph % (Auto) 13.8 (10-50) % [place] % (Auto) 9.6 (5-15) % Eos % (Auto) 2.8 (0-8) % Baso % (Auto) 0.4 (0-1) % Immature Gran # (Auto) 0.03 10*3/UL Neut # (Auto) 8.23 10*3/UL Lymph # (Auto) 1.55 10*3/uL [place] # (Auto) 1.08 H (0.3-0.8) 10*3/UL Eos # (Auto) 0.31 10*3/UL Baso # (Auto) 0.05 10*3/UL WBC Morphology Comment Normal morphology (NORM) Plt Morphology Comment Normal morphology (NORM) RBC Morph Comment Normal morphology (NORM) PT (9.7-11.4) secs INR (0.00-5.90) N/A Sodium 128 L (135-145) meq/L Potassium 4.4 (3.8-5.2) meq/L Chloride 96 L (98-112) meq/L Carbon Dioxide 25 (23-33) meq/L Anion Gap 7 (5-20) BUN 15 (7-22) mg/dL Creatinine 0.9 (0.70-1.50) mg/dL Estimated GFR > 60 (>60 ml/min/1.73m(2)) BUN/Creatinine Ratio 16.66 (6-20) Glucose 116 H (78-110) mg/dL Mean Blood Glucose mg/dL Hemoglobin A1c (4.2-6.0) % Calculated Osmolality 267.0 (267-292) mOsm/kg Calcium 9.0 (8.7-10.7) mg/dL Magnesium (1.6-2.4) mg/dL Total Bilirubin (0.3-1.2) mg/dL AST (21-57) IU/L ALT (21-72) IU/L Alkaline Phosphatase (38-126) IU/L Troponin I (< 0.040) ng/mL Total Protein (6.1-8.0) g/dL Albumin (3.5-4.8) g/dL Globulin (2.50-4.10) g/dL Albumin/Globulin Ratio (1.3-2.0) mg/g Vitamin B12 (239-931) pg/mL Vitamin D 25-Hydroxy (30-100) NG/ML Serum Folate (2.76-20.0) NG/ML TSH (0.2700-4.2000) uIU/mL Free T4 (0.93-1.71) ng/dL Ur Collection Type Clean catch urine Urine Color Yellow (Y) Urine Clarity Clear (CLEAR) Urine pH 6.0 (5.0-8.5) Ur Specific [place] 1.015 (1.005-1.030) Urine Protein Negative (NEG) mg/dl Urine Glucose (UA) Negative (NEG) mg/dL Urine Ketones Negative (NEG) Urine Occult Blood Negative (NEG) Urine Nitrate Negative (NEG) Urine Bilirubin Negative (NEG) Urine Urobilinogen 0.2 (0.2) EU/dL Ur Leukocyte Esterase Negative (NEG) Blood Type Antibody Screen Crossmatch 10/19/16 10/19/16 10/19/16 Range/Units 08:45 12:41 13:46 WBC 13.33 H (4.8-10.8) 10^3/uL RBC 3.10 L (4.70-6.10) 10^6/uL Hgb 9.4 L (14.0-18.0) g/dL Hct 28.3 L (42.0-52.0) % MCV 91.3 H (80-90) FL MCH 30.3 (27-31) PG MCHC 33.2 (33-37) g/dL RDW Std Deviation 48.1 (39-50) fL RDW Coeff of [place] 14.9 H (11.5-14.5) % Plt Count 124 L (140-350) 10*3/uL MPV 9.3 (7.4-12.2) FL Immature Gran % (Auto) 0.2 (0-5) % Neut % (Auto) 90.8 H (50-80) % Lymph % (Auto) 6.6 L (10-50) % [place] % (Auto) 2.0 L (5-15) % Eos % (Auto) 0.2 (0-8) % Baso % (Auto) 0.2 (0-1) % Immature Gran # (Auto) 0.03 10*3/UL Neut # (Auto) 12.12 10*3/UL Lymph # (Auto) 0.88 10*3/uL [place] # (Auto) 0.26 L (0.3-0.8) 10*3/UL Eos # (Auto) 0.02 10*3/UL Baso # (Auto) 0.02 10*3/UL WBC Morphology Comment See comments (NORM) Plt Morphology Comment Normal morphology (NORM) RBC Morph Comment Normal morphology (NORM) PT (9.7-11.4) secs INR (0.00-5.90) N/A Sodium 129 L (135-145) meq/L Potassium 5.2 (3.8-5.2) meq/L Chloride 97 L (98-112) meq/L Carbon Dioxide 22 L (23-33) meq/L Anion Gap 10 (5-20) BUN 15 (7-22) mg/dL Creatinine 0.9 (0.70-1.50) mg/dL Estimated GFR > 60 (>60 ml/min/1.73m(2)) BUN/Creatinine Ratio 16.66 (6-20) Glucose 129 H (78-110) mg/dL Mean Blood Glucose mg/dL Hemoglobin A1c (4.2-6.0) % Calculated Osmolality 270.0 (267-292) mOsm/kg Calcium 9.3 (8.7-10.7) mg/dL Magnesium (1.6-2.4) mg/dL Total Bilirubin 1.0 (0.3-1.2) mg/dL AST 19 L (21-57) IU/L ALT 37 (21-72) IU/L Alkaline Phosphatase 77 (38-126) IU/L Troponin I (< 0.040) ng/mL Total Protein 6.3 (6.1-8.0) g/dL Albumin 3.6 (3.5-4.8) g/dL Globulin 2.7 (2.50-4.10) g/dL Albumin/Globulin Ratio 1.30 (1.3-2.0) mg/g Vitamin B12 (239-931) pg/mL Vitamin D 25-Hydroxy (30-100) NG/ML Serum Folate (2.76-20.0) NG/ML TSH (0.2700-4.2000) uIU/mL Free T4 (0.93-1.71) ng/dL Ur Collection Type Urine Color (Y) Urine Clarity (CLEAR) Urine pH (5.0-8.5) Ur Specific [place] (1.005-1.030) Urine Protein (NEG) mg/dl Urine Glucose (UA) (NEG) mg/dL Urine Ketones (NEG) Urine Occult Blood (NEG) Urine Nitrate (NEG) Urine Bilirubin (NEG) Urine Urobilinogen (0.2) EU/dL Ur Leukocyte Esterase (NEG) Blood Type O POSITIVE Antibody Screen Negative Crossmatch See Detail 10/20/16 10/20/16 10/20/16 Range/Units 03:53 03:53 04:30 WBC 16.12 H (4.8-10.8) 10^3/uL RBC 2.88 L (4.70-6.10) 10^6/uL Hgb 8.6 L (14.0-18.0) g/dL Hct 25.8 L (42.0-52.0) % MCV 89.6 (80-90) FL MCH 29.9 (27-31) PG MCHC 33.3 (33-37) g/dL RDW Std Deviation 46.7 (39-50) fL RDW Coeff of [place] 14.8 H (11.5-14.5) % Plt Count 103 L (140-350) 10*3/uL MPV 10.3 (7.4-12.2) FL Immature Gran % (Auto) 0.4 (0-5) % Neut % (Auto) 81.0 H (50-80) % Lymph % (Auto) 8.8 L (10-50) % [place] % (Auto) 9.6 (5-15) % Eos % (Auto) 0.1 (0-8) % Baso % (Auto) 0.1 (0-1) % Immature Gran # (Auto) 0.07 10*3/UL Neut # (Auto) 13.06 10*3/UL Lymph # (Auto) 1.42 10*3/uL [place] # (Auto) 1.55 H (0.3-0.8) 10*3/UL Eos # (Auto) 0.01 10*3/UL Baso # (Auto) 0.01 10*3/UL WBC Morphology Comment Normal morphology (NORM) Plt Morphology Comment Normal morphology (NORM) RBC Morph Comment Normal morphology (NORM) PT (9.7-11.4) secs INR (0.00-5.90) N/A Sodium 130 L (135-145) meq/L Potassium 4.4 (3.8-5.2) meq/L Chloride 98 (98-112) meq/L Carbon Dioxide 23 (23-33) meq/L Anion Gap 9 (5-20) BUN 18 (7-22) mg/dL Creatinine 0.8 (0.70-1.50) mg/dL Estimated GFR > 60 (>60 ml/min/1.73m(2)) BUN/Creatinine Ratio 22.50 H (6-20) Glucose 165 H (78-110) mg/dL Mean Blood Glucose mg/dL Hemoglobin A1c (4.2-6.0) % Calculated Osmolality 275.0 (267-292) mOsm/kg Calcium 8.9 (8.7-10.7) mg/dL Magnesium (1.6-2.4) mg/dL Total Bilirubin (0.3-1.2) mg/dL AST (21-57) IU/L ALT (21-72) IU/L Alkaline Phosphatase (38-126) IU/L Troponin I < 0.012 (< 0.040) ng/mL Total Protein (6.1-8.0) g/dL Albumin (3.5-4.8) g/dL Globulin (2.50-4.10) g/dL Albumin/Globulin Ratio (1.3-2.0) mg/g Vitamin B12 (239-931) pg/mL Vitamin D 25-Hydroxy (30-100) NG/ML Serum Folate (2.76-20.0) NG/ML TSH (0.2700-4.2000) uIU/mL Free T4 (0.93-1.71) ng/dL Ur Collection Type Urine Color (Y) Urine Clarity (CLEAR) Urine pH (5.0-8.5) Ur Specific [place] (1.005-1.030) Urine Protein (NEG) mg/dl Urine Glucose (UA) (NEG) mg/dL Urine Ketones (NEG) Urine Occult Blood (NEG) Urine Nitrate (NEG) Urine Bilirubin (NEG) Urine Urobilinogen (0.2) EU/dL Ur Leukocyte Esterase (NEG) Blood Type Antibody Screen Crossmatch 10/20/16 10/20/16 10/21/16 Range/Units 04:30 04:30 04:30 WBC (4.8-10.8) 10^3/uL RBC (4.70-6.10) 10^6/uL Hgb (14.0-18.0) g/dL Hct (42.0-52.0) % MCV (80-90) FL MCH (27-31) PG MCHC (33-37) g/dL RDW Std Deviation (39-50) fL RDW Coeff of [place] (11.5-14.5) % Plt Count (140-350) 10*3/uL MPV (7.4-12.2) FL Immature Gran % (Auto) (0-5) % Neut % (Auto) (50-80) % Lymph % (Auto) (10-50) % [place] % (Auto) (5-15) % Eos % (Auto) (0-8) % Baso % (Auto) (0-1) % Immature Gran # (Auto) 10*3/UL Neut # (Auto) 10*3/UL Lymph # (Auto) 10*3/uL [place] # (Auto) (0.3-0.8) 10*3/UL Eos # (Auto) 10*3/UL Baso # (Auto) 10*3/UL WBC Morphology Comment (NORM) Plt Morphology Comment (NORM) RBC Morph Comment (NORM) PT (9.7-11.4) secs INR (0.00-5.90) N/A Sodium 128 L (135-145) meq/L Potassium 4.5 (3.8-5.2) meq/L Chloride 96 L (98-112) meq/L Carbon Dioxide 24 (23-33) meq/L Anion Gap 8 (5-20) BUN 22 (7-22) mg/dL Creatinine 0.9 (0.70-1.50) mg/dL Estimated GFR > 60 (>60 ml/min/1.73m(2)) BUN/Creatinine Ratio 24.44 H (6-20) Glucose 106 (78-110) mg/dL Mean Blood Glucose 92.488 mg/dL Hemoglobin A1c 5.36 (4.2-6.0) % Calculated Osmolality 268.0 (267-292) mOsm/kg Calcium 8.8 (8.7-10.7) mg/dL Magnesium (1.6-2.4) mg/dL Total Bilirubin (0.3-1.2) mg/dL AST (21-57) IU/L ALT (21-72) IU/L Alkaline Phosphatase (38-126) IU/L Troponin I (< 0.040) ng/mL Total Protein (6.1-8.0) g/dL Albumin (3.5-4.8) g/dL Globulin (2.50-4.10) g/dL Albumin/Globulin Ratio (1.3-2.0) mg/g Vitamin B12 (239-931) pg/mL Vitamin D 25-Hydroxy (30-100) NG/ML Serum Folate (2.76-20.0) NG/ML TSH 0.249 L (0.2700-4.2000) uIU/mL Free T4 1.61 (0.93-1.71) ng/dL Ur Collection Type Urine Color (Y) Urine Clarity (CLEAR) Urine pH (5.0-8.5) Ur Specific [place] (1.005-1.030) Urine Protein (NEG) mg/dl Urine Glucose (UA) (NEG) mg/dL Urine Ketones (NEG) Urine Occult Blood (NEG) Urine Nitrate (NEG) Urine Bilirubin (NEG) Urine Urobilinogen (0.2) EU/dL Ur Leukocyte Esterase (NEG) Blood Type Antibody Screen Crossmatch 10/21/16 10/22/16 10/22/16 Range/Units 04:30 05:10 05:10 WBC 14.42 H 14.42 H (4.8-10.8) 10^3/uL RBC 2.39 L 3.29 L (4.70-6.10) 10^6/uL Hgb 7.2 L 10.0 L (14.0-18.0) g/dL Hct 21.7 L 29.7 L (42.0-52.0) % MCV 90.8 H 90.3 H (80-90) FL MCH 30.1 30.4 (27-31) PG MCHC 33.2 33.7 (33-37) g/dL RDW Std Deviation 46.9 46.6 (39-50) fL RDW Coeff of [place] 14.9 H 14.7 H (11.5-14.5) % Plt Count 102 L 129 L (140-350) 10*3/uL MPV 9.8 9.9 (7.4-12.2) FL Immature Gran % (Auto) 0.4 0.5 (0-5) % Neut % (Auto) 72.1 74.1 (50-80) % Lymph % (Auto) 13.7 11.7 (10-50) % [place] % (Auto) 11.4 12.3 (5-15) % Eos % (Auto) 2.3 1.3 (0-8) % Baso % (Auto) 0.1 0.1 (0-1) % Immature Gran # (Auto) 0.06 0.07 10*3/UL Neut # (Auto) 10.39 10.68 10*3/UL Lymph # (Auto) 1.97 1.68 10*3/uL [place] # (Auto) 1.65 H 1.78 H (0.3-0.8) 10*3/UL Eos # (Auto) 0.33 0.19 10*3/UL Baso # (Auto) 0.02 0.02 10*3/UL WBC Morphology Comment Normal morphology Normal morphology (NORM) Plt Morphology Comment Normal morphology Normal morphology (NORM) RBC Morph Comment See comments Normal morphology (NORM) PT (9.7-11.4) secs INR (0.00-5.90) N/A Sodium 129 L (135-145) meq/L Potassium 4.1 (3.8-5.2) meq/L Chloride 94 L (98-112) meq/L Carbon Dioxide 25 (23-33) meq/L Anion Gap 10 (5-20) BUN 17 (7-22) mg/dL Creatinine 0.8 (0.70-1.50) mg/dL Estimated GFR > 60 (>60 ml/min/1.73m(2)) BUN/Creatinine Ratio 21.25 H (6-20) Glucose 102 (78-110) mg/dL Mean Blood Glucose mg/dL Hemoglobin A1c (4.2-6.0) % Calculated Osmolality 269.0 (267-292) mOsm/kg Calcium 9.4 (8.7-10.7) mg/dL Magnesium (1.6-2.4) mg/dL Total Bilirubin (0.3-1.2) mg/dL AST (21-57) IU/L ALT (21-72) IU/L Alkaline Phosphatase (38-126) IU/L Troponin I (< 0.040) ng/mL Total Protein (6.1-8.0) g/dL Albumin (3.5-4.8) g/dL Globulin (2.50-4.10) g/dL Albumin/Globulin Ratio (1.3-2.0) mg/g Vitamin B12 (239-931) pg/mL Vitamin D 25-Hydroxy (30-100) NG/ML Serum Folate (2.76-20.0) NG/ML TSH (0.2700-4.2000) uIU/mL Free T4 (0.93-1.71) ng/dL Ur Collection Type Urine Color (Y) Urine Clarity (CLEAR) Urine pH (5.0-8.5) Ur Specific [place] (1.005-1.030) Urine Protein (NEG) mg/dl Urine Glucose (UA) (NEG) mg/dL Urine Ketones (NEG) Urine Occult Blood (NEG) Urine Nitrate (NEG) Urine Bilirubin (NEG) Urine Urobilinogen (0.2) EU/dL Ur Leukocyte Esterase (NEG) Blood Type Antibody Screen Crossmatch 10/23/16 10/23/16 10/23/16 Range/Units 04:15 04:15 17:41 WBC 13.56 H (4.8-10.8) 10^3/uL RBC 3.13 L (4.70-6.10) 10^6/uL Hgb 9.6 L (14.0-18.0) g/dL Hct 28.5 L (42.0-52.0) % MCV 91.1 H (80-90) FL MCH 30.7 (27-31) PG MCHC 33.7 (33-37) g/dL RDW Std Deviation 46.5 (39-50) fL RDW Coeff of [place] 14.7 H (11.5-14.5) % Plt Count 149 (140-350) 10*3/uL MPV 9.7 (7.4-12.2) FL Immature Gran % (Auto) (0-5) % Neut % (Auto) (50-80) % Lymph % (Auto) (10-50) % [place] % (Auto) (5-15) % Eos % (Auto) (0-8) % Baso % (Auto) (0-1) % Immature Gran # (Auto) 10*3/UL Neut # (Auto) 10*3/UL Lymph # (Auto) 10*3/uL [place] # (Auto) (0.3-0.8) 10*3/UL Eos # (Auto) 10*3/UL Baso # (Auto) 10*3/UL WBC Morphology Comment (NORM) Plt Morphology Comment (NORM) RBC Morph Comment (NORM) PT (9.7-11.4) secs INR (0.00-5.90) N/A Sodium 133 L (135-145) meq/L Potassium 3.6 L (3.8-5.2) meq/L Chloride 96 L (98-112) meq/L Carbon Dioxide 25 (23-33) meq/L Anion Gap 12 (5-20) BUN 22 (7-22) mg/dL Creatinine 0.8 (0.70-1.50) mg/dL Estimated GFR > 60 (>60 ml/min/1.73m(2)) BUN/Creatinine Ratio 27.50 H (6-20) Glucose 153 H (78-110) mg/dL Mean Blood Glucose mg/dL Hemoglobin A1c (4.2-6.0) % Calculated Osmolality 281.0 (267-292) mOsm/kg Calcium 9.1 (8.7-10.7) mg/dL Magnesium 1.8 (1.6-2.4) mg/dL Total Bilirubin 1.0 (0.3-1.2) mg/dL AST 29 (21-57) IU/L ALT 36 (21-72) IU/L Alkaline Phosphatase 75 (38-126) IU/L Troponin I (< 0.040) ng/mL Total Protein 5.9 L (6.1-8.0) g/dL Albumin 3.1 L (3.5-4.8) g/dL Globulin 2.8 (2.50-4.10) g/dL Albumin/Globulin Ratio 1.10 L (1.3-2.0) mg/g Vitamin B12 617 (239-931) pg/mL Vitamin D 25-Hydroxy 29.1 L (30-100) NG/ML Serum Folate 19.0 (2.76-20.0) NG/ML TSH (0.2700-4.2000) uIU/mL Free T4 (0.93-1.71) ng/dL Ur Collection Type Urine Color (Y) Urine Clarity (CLEAR) Urine pH (5.0-8.5) Ur Specific [place] (1.005-1.030) Urine Protein (NEG) mg/dl Urine Glucose (UA) (NEG) mg/dL Urine Ketones (NEG) Urine Occult Blood (NEG) Urine Nitrate (NEG) Urine Bilirubin (NEG) Urine Urobilinogen (0.2) EU/dL Ur Leukocyte Esterase (NEG) Blood Type Antibody Screen Crossmatch 10/24/16 10/24/16 10/24/16 Range/Units 03:53 03:53 09:42 WBC 10.69 (4.8-10.8) 10^3/uL RBC 2.60 L (4.70-6.10) 10^6/uL Hgb 8.0 L (14.0-18.0) g/dL Hct 24.2 L (42.0-52.0) % MCV 93.1 H (80-90) FL MCH 30.8 (27-31) PG MCHC 33.1 (33-37) g/dL RDW Std Deviation 47.5 (39-50) fL RDW Coeff of [place] 14.7 H (11.5-14.5) % Plt Count 171 (140-350) 10*3/uL MPV 9.5 (7.4-12.2) FL Immature Gran % (Auto) 0.6 (0-5) % Neut % (Auto) 72.9 (50-80) % Lymph % (Auto) 13.1 (10-50) % [place] % (Auto) 12.0 (5-15) % Eos % (Auto) 1.2 (0-8) % Baso % (Auto) 0.2 (0-1) % Immature Gran # (Auto) 0.06 10*3/UL Neut # (Auto) 7.80 10*3/UL Lymph # (Auto) 1.40 10*3/uL [place] # (Auto) 1.28 H (0.3-0.8) 10*3/UL Eos # (Auto) 0.13 10*3/UL Baso # (Auto) 0.02 10*3/UL WBC Morphology Comment Normal morphology (NORM) Plt Morphology Comment Normal morphology (NORM) RBC Morph Comment Normal morphology (NORM) PT (9.7-11.4) secs INR (0.00-5.90) N/A Sodium 135 (135-145) meq/L Potassium 3.8 (3.8-5.2) meq/L Chloride 101 (98-112) meq/L Carbon Dioxide 25 (23-33) meq/L Anion Gap 9 (5-20) BUN 22 (7-22) mg/dL Creatinine 0.8 (0.70-1.50) mg/dL Estimated GFR > 60 (>60 ml/min/1.73m(2)) BUN/Creatinine Ratio 27.50 H (6-20) Glucose 128 H (78-110) mg/dL Mean Blood Glucose mg/dL Hemoglobin A1c (4.2-6.0) % Calculated Osmolality 284.0 (267-292) mOsm/kg Calcium 8.6 L (8.7-10.7) mg/dL Magnesium 2.2 (1.6-2.4) mg/dL Total Bilirubin 0.9 (0.3-1.2) mg/dL AST 23 (21-57) IU/L ALT 37 (21-72) IU/L Alkaline Phosphatase 73 (38-126) IU/L Troponin I (< 0.040) ng/mL Total Protein 5.5 L (6.1-8.0) g/dL Albumin 2.8 L (3.5-4.8) g/dL Globulin 2.7 (2.50-4.10) g/dL Albumin/Globulin Ratio 1.00 L (1.3-2.0) mg/g Vitamin B12 (239-931) pg/mL Vitamin D 25-Hydroxy (30-100) NG/ML Serum Folate (2.76-20.0) NG/ML TSH (0.2700-4.2000) uIU/mL Free T4 (0.93-1.71) ng/dL Ur Collection Type Urine Color (Y) Urine Clarity (CLEAR) Urine pH (5.0-8.5) Ur Specific [place] (1.005-1.030) Urine Protein (NEG) mg/dl Urine Glucose (UA) (NEG) mg/dL Urine Ketones (NEG) Urine Occult Blood (NEG) Urine Nitrate (NEG) Urine Bilirubin (NEG) Urine Urobilinogen (0.2) EU/dL Ur Leukocyte Esterase (NEG) Blood Type O POSITIVE Antibody Screen Negative Crossmatch See Detail 10/25/16 10/25/16 10/25/16 Range/Units 04:39 13:32 13:34 WBC 8.56 14.81 H (4.8-10.8) 10^3/uL RBC 3.00 L 3.19 L (4.70-6.10) 10^6/uL Hgb 9.0 L 9.9 L (14.0-18.0) g/dL Hct 27.2 L 29.4 L (42.0-52.0) % MCV 90.7 H 92.2 H (80-90) FL MCH 30.0 31.0 (27-31) PG MCHC 33.1 33.7 (33-37) g/dL RDW Std Deviation 48.2 49.7 (39-50) fL RDW Coeff of [place] 14.9 H 15.3 H (11.5-14.5) % Plt Count 176 213 (140-350) 10*3/uL MPV 9.4 9.7 (7.4-12.2) FL Immature Gran % (Auto) (0-5) % Neut % (Auto) (50-80) % Lymph % (Auto) (10-50) % [place] % (Auto) (5-15) % Eos % (Auto) (0-8) % Baso % (Auto) (0-1) % Immature Gran # (Auto) 10*3/UL Neut # (Auto) 10*3/UL Lymph # (Auto) 10*3/uL [place] # (Auto) (0.3-0.8) 10*3/UL Eos # (Auto) 10*3/UL Baso # (Auto) 10*3/UL WBC Morphology Comment (NORM) Plt Morphology Comment (NORM) RBC Morph Comment (NORM) PT 11.3 (9.7-11.4) secs INR 1.07 (0.00-5.90) N/A Sodium (135-145) meq/L Potassium (3.8-5.2) meq/L Chloride (98-112) meq/L Carbon Dioxide (23-33) meq/L Anion Gap (5-20) BUN (7-22) mg/dL Creatinine (0.70-1.50) mg/dL Estimated GFR (>60 ml/min/1.73m(2)) BUN/Creatinine Ratio (6-20) Glucose (78-110) mg/dL Mean Blood Glucose mg/dL Hemoglobin A1c (4.2-6.0) % Calculated Osmolality (267-292) mOsm/kg Calcium (8.7-10.7) mg/dL Magnesium (1.6-2.4) mg/dL Total Bilirubin (0.3-1.2) mg/dL AST (21-57) IU/L ALT (21-72) IU/L Alkaline Phosphatase (38-126) IU/L Troponin I (< 0.040) ng/mL Total Protein (6.1-8.0) g/dL Albumin (3.5-4.8) g/dL Globulin (2.50-4.10) g/dL Albumin/Globulin Ratio (1.3-2.0) mg/g Vitamin B12 (239-931) pg/mL Vitamin D 25-Hydroxy (30-100) NG/ML Serum Folate (2.76-20.0) NG/ML TSH (0.2700-4.2000) uIU/mL Free T4 (0.93-1.71) ng/dL Ur Collection Type Urine Color (Y) Urine Clarity (CLEAR) Urine pH (5.0-8.5) Ur Specific [place] (1.005-1.030) Urine Protein (NEG) mg/dl Urine Glucose (UA) (NEG) mg/dL Urine Ketones (NEG) Urine Occult Blood (NEG) Urine Nitrate (NEG) Urine Bilirubin (NEG) Urine Urobilinogen (0.2) EU/dL Ur Leukocyte Esterase (NEG) Blood Type Antibody Screen Crossmatch 10/26/16 10/26/16 10/27/16 Range/Units 05:00 05:11 04:02 WBC 10.47 10.97 H (4.8-10.8) 10^3/uL RBC 2.87 L 2.84 L (4.70-6.10) 10^6/uL Hgb 8.7 L 8.7 L (14.0-18.0) g/dL Hct 26.4 L 26.0 L (42.0-52.0) % MCV 92.0 H 91.5 H (80-90) FL MCH 30.3 30.6 (27-31) PG MCHC 33.0 33.5 (33-37) g/dL RDW Std Deviation 47.5 47.2 (39-50) fL RDW Coeff of [place] 14.9 H 14.8 H (11.5-14.5) % Plt Count 211 240 (140-350) 10*3/uL MPV 9.6 9.0 (7.4-12.2) FL Immature Gran % (Auto) 1.0 (0-5) % Neut % (Auto) 74.8 (50-80) % Lymph % (Auto) 11.6 (10-50) % [place] % (Auto) 11.4 (5-15) % Eos % (Auto) 1.1 (0-8) % Baso % (Auto) 0.1 (0-1) % Immature Gran # (Auto) 0.10 10*3/UL Neut # (Auto) 7.85 10*3/UL Lymph # (Auto) 1.21 10*3/uL [place] # (Auto) 1.19 H (0.3-0.8) 10*3/UL Eos # (Auto) 0.11 10*3/UL Baso # (Auto) 0.01 10*3/UL WBC Morphology Comment Normal morphology (NORM) Plt Morphology Comment Normal morphology (NORM) RBC Morph Comment Normal morphology (NORM) PT (9.7-11.4) secs INR (0.00-5.90) N/A Sodium 135 (135-145) meq/L Potassium 4.0 (3.8-5.2) meq/L Chloride 105 (98-112) meq/L Carbon Dioxide 21 L (23-33) meq/L Anion Gap 9 (5-20) BUN 26 H (7-22) mg/dL Creatinine 0.7 (0.70-1.50) mg/dL Estimated GFR > 60 (>60 ml/min/1.73m(2)) BUN/Creatinine Ratio 37.14 H (6-20) Glucose 91 (78-110) mg/dL Mean Blood Glucose mg/dL Hemoglobin A1c (4.2-6.0) % Calculated Osmolality 284.0 (267-292) mOsm/kg Calcium 9.0 (8.7-10.7) mg/dL Magnesium (1.6-2.4) mg/dL Total Bilirubin 1.8 H (0.3-1.2) mg/dL AST 33 (21-57) IU/L ALT 39 (21-72) IU/L Alkaline Phosphatase 64 (38-126) IU/L Troponin I (< 0.040) ng/mL Total Protein 5.5 L (6.1-8.0) g/dL Albumin 2.8 L (3.5-4.8) g/dL Globulin 2.7 (2.50-4.10) g/dL Albumin/Globulin Ratio 1.00 L (1.3-2.0) mg/g Vitamin B12 (239-931) pg/mL Vitamin D 25-Hydroxy (30-100) NG/ML Serum Folate (2.76-20.0) NG/ML TSH (0.2700-4.2000) uIU/mL Free T4 (0.93-1.71) ng/dL Ur Collection Type Urine Color (Y) Urine Clarity (CLEAR) Urine pH (5.0-8.5) Ur Specific [place] (1.005-1.030) Urine Protein (NEG) mg/dl Urine Glucose (UA) (NEG) mg/dL Urine Ketones (NEG) Urine Occult Blood (NEG) Urine Nitrate (NEG) Urine Bilirubin (NEG) Urine Urobilinogen (0.2) EU/dL Ur Leukocyte Esterase (NEG) Blood Type Antibody Screen Crossmatch 10/29/16 10/29/16 Range/Units 04:25 04:25 WBC 15.17 H (4.8-10.8) 10^3/uL RBC 3.27 L (4.70-6.10) 10^6/uL Hgb 9.9 L (14.0-18.0) g/dL Hct 29.6 L (42.0-52.0) % MCV 90.5 H (80-90) FL MCH 30.3 (27-31) PG MCHC 33.4 (33-37) g/dL RDW Std Deviation 47.1 (39-50) fL RDW Coeff of [place] 14.8 H (11.5-14.5) % Plt Count 344 (140-350) 10*3/uL MPV 9.9 (7.4-12.2) FL Immature Gran % (Auto) (0-5) % Neut % (Auto) (50-80) % Lymph % (Auto) (10-50) % [place] % (Auto) (5-15) % Eos % (Auto) (0-8) % Baso % (Auto) (0-1) % Immature Gran # (Auto) 10*3/UL Neut # (Auto) 10*3/UL Lymph # (Auto) 10*3/uL [place] # (Auto) (0.3-0.8) 10*3/UL Eos # (Auto) 10*3/UL Baso # (Auto) 10*3/UL WBC Morphology Comment (NORM) Plt Morphology Comment (NORM) RBC Morph Comment (NORM) PT (9.7-11.4) secs INR (0.00-5.90) N/A Sodium 133 L (135-145) meq/L Potassium 3.7 L (3.8-5.2) meq/L Chloride 101 (98-112) meq/L Carbon Dioxide 21 L (23-33) meq/L Anion Gap 11 (5-20) BUN 20 (7-22) mg/dL Creatinine 0.7 (0.70-1.50) mg/dL Estimated GFR > 60 (>60 ml/min/1.73m(2)) BUN/Creatinine Ratio 28.57 H (6-20) Glucose 99 (78-110) mg/dL Mean Blood Glucose mg/dL Hemoglobin A1c (4.2-6.0) % Calculated Osmolality 278.0 (267-292) mOsm/kg Calcium 9.3 (8.7-10.7) mg/dL Magnesium (1.6-2.4) mg/dL Total Bilirubin (0.3-1.2) mg/dL AST (21-57) IU/L ALT (21-72) IU/L Alkaline Phosphatase (38-126) IU/L Troponin I (< 0.040) ng/mL Total Protein (6.1-8.0) g/dL Albumin (3.5-4.8) g/dL Globulin (2.50-4.10) g/dL Albumin/Globulin Ratio (1.3-2.0) mg/g Vitamin B12 (239-931) pg/mL Vitamin D 25-Hydroxy (30-100) NG/ML Serum Folate (2.76-20.0) NG/ML TSH (0.2700-4.2000) uIU/mL Free T4 (0.93-1.71) ng/dL Ur Collection Type Urine Color (Y) Urine Clarity (CLEAR) Urine pH (5.0-8.5) Ur Specific [place] (1.005-1.030) Urine Protein (NEG) mg/dl Urine Glucose (UA) (NEG) mg/dL Urine Ketones (NEG) Urine Occult Blood (NEG) Urine Nitrate (NEG) Urine Bilirubin (NEG) Urine Urobilinogen (0.2) EU/dL Ur Leukocyte Esterase (NEG) Blood Type Antibody Screen Crossmatch Objective : Exam - General General Appearance: No Acute Distress, Cooperative Additional General Exam Details: Vital Signs (24 hrs) Temp Pulse Resp BP Pulse Ox 10/29/16 16:28 97.5 F 73 20 127/82 97 10/29/16 13:00 97.6 F 83 20 127/54 95 10/29/16 09:00 97.7 F 66 20 133/77 94 10/29/16 05:20 94 10/29/16 04:25 97.0 F 83 18 152/88 94 10/28/16 20:54 98.5 F 76 20 162/87 92 - Head Head Exam: Normal Inspection, Normocephalic, Atraumatic - ENT ENT Exam: Mucous Membranes Moist - Respiratory Respiratory Exam: Clear to Auscultation - Bilaterally, Breathing Non Labored - Cardiovascular Cardiovascular Exam: RRR, No Murmur, No Clicks, No Gallops, No Rubs, No JVD - GI/Abdominal GI/Abdominal Exam: Normal Bowel Sounds, Non Tender, Non Distended, Soft - Extremities Extremities Exam: No Clubbing Present, No Edema Present, No Cyanosis Present Additional Extremities Exam Details: Swelling and right hip has improved. Dressing is currently clean, dry, intact. I'm told that serosanguineous on the inferior edge of the wound but significant improvement over the last week. - Neurological Neurological Exam: Alert, Oriented x 3, No Facial Droop, Speech Intact / Clear - Psychiatric Psychiatric Exam: Normal Affect, Normal Mood Assessment and Plan - Patient Problems (1) Diabetes Current Visit: Yes Status: Acute Code(s): E11.9 - Type 2 diabetes mellitus without complications Qualifiers: Diabetes mellitus type: type 2 Diabetes mellitus complication status: without complication Diabetes mellitus color expert insulin use: without color expert use Qualified Code(s): E11.9 - Type 2 diabetes mellitus without complications (2) Hypertension Current Visit: Yes Status: Acute Code(s): I10 - Essential (primary) hypertension Qualifiers: Hypertension type: essential hypertension Qualified Code(s): I10 - Essential (primary) hypertension (3) Postoperative anemia Current Visit: Yes Status: Acute Code(s): D64.9 - Anemia, unspecified (4) Closed right hip fracture Current Visit: Yes Status: Acute Code(s): S72.001A - Fracture of unspecified part of neck of right femur, initial encounter for closed fracture Qualifiers: Encounter type: subsequent encounter Fracture healing: with routine healing Qualified Code(s): S72.001D - Fracture of unspecified part of neck of right femur, subsequent encounter for closed fracture with routine healing (5) Chronic hyponatremia Current Visit: Yes Status: Resolved Code(s): E87.1 - Hypo-osmolality and hyponatremia (6) Hypokalemia Current Visit: Yes Status: Resolved Code(s): E87.6 - Hypokalemia (7) Postoperative ileus Current Visit: Yes Status: Resolved Code(s): K91.89 - Other postprocedural complications and disorders of digestive system; K56.7 - Ileus, unspecified (8) Vitamin D deficiency Current Visit: Yes Status: Acute Code(s): E55.9 - Vitamin D deficiency, unspecified - Assessment / Plan Additional Assessment/Plan Details: Overall, patient is improved from his ileus. He is probably ready for swing bed. Vitamin D deficiency is present, so I will add vitamin D to the patient's medical regimen as well. Continue PT and OT. DVT prophylaxis will not be able to be obtained chemically with this patient due to his oozing and bleeding complications on everything we've attempted including Lovenox, Xarelto, and aspirin. Hopefully swing bed soon. I cannot clear the patient for shoulder surgery until he is healed up from his hip. It is clear that he will likely need surgical intervention for his shoulders.
[2016-10-29] MEDS: traMADol 50 MG TABLET PO PRN (18:55)
[2016-10-30] MEDS: traMADol 50 MG TABLET PO PRN ×3 (00:12→15:54)
[2016-10-30 05:34] LABS: BLOOD UREA NITROGEN 18 mg/dL (7-22); BUN/CREATININE RATIO 25.71 (6-20); MAGNESIUM 1.4 mg/dL (1.6-2.4)
[2016-10-30 05:40] LABS: HEMOGLOBIN A1C 5.23 % (4.2-6.0)
[2016-10-30] MEDS ORDERED: PANTOPRAZOLE 40 MG TABLET PO SCH (07:00)
--- NOTE | 2016-10-30 07:46 | ORTHO.PROG ---
Last Taken Vital Signs: Vital Signs - Last Taken Temperature 98.9 F 10/30/16 07:30 Pulse Rate 74 10/30/16 07:30 Respiratory Rate 19 10/30/16 07:30 Blood Pressure 128/79 10/30/16 07:30 Pulse Ox 96 10/30/16 07:30 Subjective: Mr. Hodge had a good weekend. I read Dr. Olivarez's notes. It appears that the patient's drainage has slow down remarkably. Not reporting much pain. Shoulders are what is hurting him the most. Objective: Vital signs are stable and patient is afebrile. Incisions and right lower extremity were inspected. There is scant slowing drainage coming from the very upper incision. Nickel-sized area of drainage in the most distal incision. Rest of the incisions appear dry. The patient's thigh is much more supple. Ecchymosis noted along the entire right thigh. Hemoglobin and hematocrit 9.9 and 29.6 Assessment: Impression: Postop day 11 following rodding of right hip fracture. Hemoglobin and hematocrit stabilized. Drainage has slowed significantly. Plan: Plan: I believe Dr. Sorenson is planning on placing the patient in a swing bed. Not sure if that'll happen today or not. I will check on the patient later on.
[2016-10-30] MEDS: FOLIC ACID 1 MG TABLET PO SCH (08:08)
[2016-10-30] MEDS: FERROUS GLUCONATE 324 MG TABLET PO SCH (08:09)
[2016-10-30] MEDS: ALLOPURINOL 100 MG TABLET PO SCH (08:09)
[2016-10-30] MEDS ORDERED: CHOLECALCIFEROL 1000 IU TABLET PO SCH (09:00)
--- NOTE | 2016-10-30 12:38 | PT AM DAY ---
Diagnosis : Right Hip Fracture AM - Physical Therapy S: The patient stated he received some steroid injections in his shoulders yesterday and is kind of sore from that procedure. He states his hip is feeling pretty swollen today and his knee feels stiff. O: The patient was brought to the therapy department by OT. He received an application of moist heat pack x20 minutes including set up to his bilateral shoulders. The patient performed strengthening exercises with the left lower extremity in open chain. We worked on some transfers and he performed sit to stand activities so that he can be independent with use of a walker. The patient was able to demonstrate two standing pivot transfers that weren't actually too bad this morning. He did transfer from his wheelchair back into his cruzito chair once up in his room as well. A: The patient is showing good improvement and gaining independence in those activities. P: Continue seeing patient BID during the week and one time per day over the weekend for transfers, ambulation, and range of motion/strengthening exercises. OMKAR
--- NOTE | 2016-10-30 12:46 | OT.PROG ---
Progress Note Progress Note: S: Pt reports soreness in UE today. Pt's daughter in-law present for therapy session. Daughter expressed concern about pt putting too much weight through leg and is concerned about the DrJohn's/nurses expectation to walk more. O: Pt completed seated UE dressing with set up A and LE dressing with modified independence with the use of high school sports coach as well as set up assistance. Pt completed sit to stands with min/mod A and ambulated 5 ft. with TTWB to w/c. MHP X 20 to bilateral shoulders. Pt then completed the following UE exercises: horizontal abduction, biceps, internal rotation, and external rotation X 20 with RTB. Pt completed shoulder flexion holds 2 X 1 min. Pt also completed bilateral hand strengthening with Red digi flex X 100. A: Pt tolerated UE exercises well today, although fatigued quickly. P: Continue POC. GM Castillo/Suzanne
--- NOTE | 2016-10-30 12:57 | OT AM DAY ---
Diagnosis : Right Hip Fracture AM - Occupational Therapy S: The patient reports his leg is feeling a little better. He does still have some swelling and drainage but it is improving. He also feels like his transfers are going a little smoother as well. O: The therapist did speak with Dr. Olivarez as he was taking over care for the weekend. The patient's bone is still soft and Dr. Olivarez still wants minimal toe touch weight bearing on the right leg secondary to his bone being so soft in surgery. Today we worked on dressing tasks including using the filer metal patterns to don shorts to knee level which the patient was able to do with min assist after set up. From knee to waist level the patient required max assist to keep his balance. The patient's balance is still very compromised secondary to his shoulders and having difficulty keeping toe touch weight- bearing status on the right while he is weight-bearing on the left. The patient completed a transfer to the wheelchair which was approximately 5 feet away with toe touch weight-bearing and performing a stand pivot transfer. The patient was then wheeled down to therapy. Down in therapy we had the patient lay supine and he received heat to his bilateral shoulders while performing left leg exercises including straight leg raises, hip abduction, short arc quads , yellow theraband resisted ankle flexion/extension, internal/external rotation , heel slides, and quad sets. On the right the patient performed short arc quads x20 followed by four way ankle exercises while on the bolster to keep knee in flexion. At this point we are not doing any straight leg raises. The patient then worked on upper extremity strengthening including red theraband resisted triceps, biceps, internal/external rotation with the arms adducted, and as much shoulder extension as we could get from his shoulders. The patient then transferred from supine to sit with max assist; he still has difficulty sitting up on his own. The patient then transferred from sit to stand with min assist and walked to the wheelchair with min assist and cues to reach back for wheelchair. The patient was wheeled back to his room and transferred back to his chair with min assist. A: The patient has made some slight gains. He was able to move his right leg better today than he was yesterday. The patient is able to bear more weight through his shoulders; however, at this point in time we are going to wait to further his walking distance secondary to Dr. Henderson being specific about completing stand pivot transfers only at this time. P: Continue seeing patient BID during the week and one time per day over the weekend for upper extremity strengthening, ADLs, and overall functional mobility. OMKAR
[2016-10-30] MEDS ORDERED: Magnesium Sulfate 2gm (Premix) 2 GM/50 ML BAG IV ONE (13:01)
--- NOTE | 2016-10-30 13:52 | PT.PROG ---
Progress Note Progress Note: S. Patient stated that he is sore today however is feeling better overall. O. Patient ambulated 15 feet to the wheelchair therapy gym where he performed exercises in the form of; heel slides, quad sets, ankle pumps, short arc quads all x 10 bilaterally, straight leg raises and hip abduction on the left. Patient was fitted for a platform walker then performed sit to stands x 10, then ambulated 15 feet to the wheelchair and was returned to his room. A. 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 Patient requires mod assist with transfers and ambulation. Patient would continue to benefit from skilled therapy at this time. P. Continue POC.
[2016-10-30] MEDS: NORMAL SALINE 10 ML SYRINGE FLUSH IVP PRN (14:03)
--- NOTE | 2016-10-30 14:08 | OT AM DAY ---
Diagnosis : Right Hip Fracture AM - Occupational Therapy S: The patient reports he is doing okay. O: Dr. Olivarez was with the therapist today as we changed the dressing. The patient had drainage on the very top incision and he has three other incisions. The middle incisions were doing well. The bottom one was not draining; however, down in therapy it started draining just slightly so we covered that with 4X4s. The patient worked on getting dressed today with his piece cutter; he was moving his right leg better and was able to lift it in order to don shorts. However, the patient still requires max assist to don shorts from knee to waist level for balance. We need to continue to work on the patient's balance while standing; however, the patient did make the comment that his balance has been off for quite some time and he has had multiple falls at home and he is worried about his balance. The patient then walked to the sink area to complete transfer. He was then wheeled down to therapy where he received an application of moist heat pack x20 minutes including set up to his bilateral shoulders. The patient performed left leg exercises including straight leg raises, hip abduction, short arc quads, yellow theraband resisted ankle flexion/ extension, internal/external rotation, heel slides, and quad sets. On the right the patient performed short arc quads x20 followed [address] four [address] ankle exercises while on the bolster to keep knee in flexion. At this point we are not doing any straight leg raises. The patient then worked on upper extremity strengthening including red theraband resisted triceps, biceps, internal/ external rotation with the arms adducted, and as much shoulder extension as we could get from his shoulders. The patient then transferred from supine to sit with max assist. The patient then transferred from sit to stand with min assist and walked to the wheelchair with min assist and cues to reach back for wheelchair. The patient was wheeled back to his room and transferred back to his chair with min assist. A: There has been some discussion as to how far this patient should walk. At this point in time it has been instructed to therapy that Dr. Guillen wants minimal walking with stand pivot transfers secondary to the softness of his bone. We will wait until tomorrow to see if we can start increasing his ambulation status per the orthopedic doctor. P: Continue seeing patient BID during the week and one time per day over the weekend for upper extremity strengthening, ADLs, and overall functional mobility. JAIMED
[2016-10-30 16:52] VITALS: BP 146/64; RESP 17; TEMP 97.8; O2SAT 95
--- NOTE | 2016-10-30 17:20 | PT.PROG ---
Progress Note Progress Note: S: Randy states that he is feeling sore from this morning's activity's, but that he overall is able to tolerate more therapy than he has in the past. O: Randy was wheeled to therapy by OT. Treatment consisted of: tibiofemoral joint mobilizations to RLE knee for pain and ROM; STS x5. Therapy was terminated early due to c/o pain. Randy was wheeled to his hospital room chair, bed alarm on and call light within reach. A: Randy tolerated therapy fair with increased c/o of pain in his b/l shoulders. Randy continues to have shoulder pain and overall muscular weakness that limit his ability to transfer and ambulate. Randy requires mod assist with transfers and cuing for safety. P: Continue POC.
--- NOTE | 2016-10-30 19:40 | DCSUMMARY ---
Hospitalization Summary Admit Date: 10/18/16 Discharge Date: 10/30/16 Primary Diagnosis:: right hip fracture status post ORIF Secondary Diagnosis:: Postoperative ileus, rheumatoid arthritis, shoulder arthropathies, Hospital Course: This very pleasant 71-year-old male that was at his home in [place], [place], when he fell trying to take out the trash bag. He is accepted by our orthopedist, Dr. Henderson, for an open reduction and internal fixation of the right hip. The hospital service admitted the patient given his medical comorbidities, and he has had a prolonged course of recovery. In terms of the open reduction and internal fixation, patient's on toe-touch weightbearing at this time because of fairly thin bone. He has been tolerating that to some degree, but it's been very difficult for him to maintain weightbearing status due to his shoulder arthropathies and severe shoulder pain from probable untreated rheumatoid arthritis. Patient continues to work diligently with therapy, but he needs more physical therapy and occupational therapy and more time for his hip to heal before going home. In terms of DVT prophylaxis, this was very difficult as the patient bruised and required blood transfusions on 2 separate occasions. We had to hold off on any further DVT prophylaxis with either Xarelto, Lovenox, or aspirin, as the patient continued to ooze, leaned down, and required blood transfusions. At this time, we think the patient's bleeding risk is higher than his clotting risk. In terms of the patient's postoperative recovery, this was also complicated by an adynamic ileus that developed postoperatively. We had to treat the patient with an NG tube, nothing by mouth diet, and several days to allow this to improve. If finally did improve. This was a hindrance to the patient's therapy , but we have no choice but to treat the bowel first. In terms of other medical issues, patient did have some hypertension but he was found to be quite bradycardic on his Coreg, and at times had borderline hypertension. We had to back off on several of his blood pressure medications. The patient felt that going to swing bed would be the best thing for him. He wanted to stay here to do his therapy. Today, no chest pain, no shortness breath, no nausea or vomiting. His wound is healing much better, and he states that her shoulders are really has big problem. We are trying to do toe-touch weightbearing with a platform walker. I spoke with Dr. Henderson, and he is in agreement with the patient going to the swing bed. Assessment and Plan: 1. As per discharge assessments noted 2. Disposition: Patient is discharged to the swing bed 3. Condition on discharge, stable and improved. 4. Diet: regular diet 5. Activities: Per physical therapy. Toe-touch weight bearing on right lower extremity 6. Follow-Up: 1. Hospital service will continue to follow the patient 2. 7. Medications at the Time of Discharge: Home Medications Medication Instructions Recorded Confirmed Type Doxazosin Mesylate 4 mg PO DAILY tab 01/22/14 10/22/16 History Pravastatin Sodium 20 mg PO DAILY tab 01/22/14 10/22/16 History Vitamin B Complex 1 ea PO QD tab 12/07/15 10/22/16 History Acetaminophen [Tylenol] 650 mg PO Q6H PRN tab 10/30/16 Rx Allopurinol [Zyloprim] 100 mg PO DAILY tab 10/30/16 Rx Amlodipine Besylate [Norvasc] 10 mg PO DAILY tab 10/30/16 Rx Cholecalciferol [Vitamin D3] 1,000 iu PO DAILY tab 10/30/16 Rx Ferrous Gluconate [Fergon] 324 mg PO DAILY tab 10/30/16 Rx Folic Acid 1 mg PO DAILY tab 10/30/16 Rx Magnesium Oxide [Mag-Ox] 400 mg PO C BK tab 10/30/16 Rx Pantoprazole Sodium [Protonix] 40 mg PO AC BK tab 10/30/16 Rx traMADol HCl [Ultram] 50 - 100 mg PO Q6H PRN tab 10/30/16 Rx 8. Time, care, counseling and coordination of care for this discharge is greater than 30 minutes. Exam - Vitals Vital Signs: Vital Signs Temperature 97.8 F Temperature Source Temporal Artery Scan Pulse Rate [Apical] 78 Pulse Rate [Pulse Oximeter] 87 Pulse Rate 80 Respiratory Rate 17 Blood Pressure [Left Arm] 146/64 Blood Pressure [Right Arm] 107/49 Blood Pressure 168/79 Pulse Ox 95 Oxygen Flow Rate 1 Oxygen Delivery Method Room Air Height 5 ft 9 in Weight 191 lb 3.205 oz - General General Appearance: No Acute Distress, Cooperative - Eye Eye Exam: POSITIVE: No Scleral Icterus - ENT ENT Exam: POSITIVE: Mucous Membranes Moist - Respiratory Respiratory Exam: POSITIVE: Clear to Auscultation - Bilaterally, Breathing Non Labored - Cardiovascular Cardiovascular Exam: POSITIVE: RRR, No Murmur, No Clicks, No Gallops, No Rubs, No JVD - GI/Abdominal GI/Abdominal Exam: POSITIVE: Normal Bowel Sounds, Non Tender, Non Distended, Soft - Extremities Extremities Exam: POSITIVE: No Clubbing Present, No Edema Present, No Cyanosis Present Additional Extremities Exam Details: Right thigh postoperative swelling is significantly improved and is nearly normal size now. - Neurological Neurological Exam: POSITIVE: Alert, Oriented x 3, No Facial Droop, Speech Intact / Clear - Psychiatric Psychiatric Exam: POSITIVE: Normal Affect, Normal Mood Data Perinent Studies: Laboratory Results 10/18/16 10/18/16 10/18/16 Range/Units 20:30 20:30 20:30 WBC 15.43 H (4.8-10.8) 10^3/uL RBC 3.13 L (4.70-6.10) 10^6/uL Hgb 9.5 L (14.0-18.0) g/dL Hct 28.2 L (42.0-52.0) % MCV 90.1 H (80-90) FL MCH 30.4 (27-31) PG MCHC 33.7 (33-37) g/dL RDW Std Deviation 47.2 (39-50) fL RDW Coeff of [place] 14.8 H (11.5-14.5) % Plt Count 140 (140-350) 10*3/uL MPV 8.7 (7.4-12.2) FL Immature Gran % (Auto) 0.3 (0-5) % Neut % (Auto) 80.1 H (50-80) % Lymph % (Auto) 10.3 (10-50) % [place] % (Auto) 8.6 (5-15) % Eos % (Auto) 0.5 (0-8) % Baso % (Auto) 0.2 (0-1) % Immature Gran # (Auto) 0.05 10*3/UL Neut # (Auto) 12.36 10*3/UL Lymph # (Auto) 1.59 10*3/uL [place] # (Auto) 1.33 H (0.3-0.8) 10*3/UL Eos # (Auto) 0.07 10*3/UL Baso # (Auto) 0.03 10*3/UL WBC Morphology Comment Normal morphology (NORM) Plt Morphology Comment Normal morphology (NORM) RBC Morph Comment Normal morphology (NORM) PT (9.7-11.4) secs INR (0.00-5.90) N/A Sodium 130 L (135-145) meq/L Potassium 4.3 (3.8-5.2) meq/L Chloride 96 L (98-112) meq/L Carbon Dioxide 23 (23-33) meq/L Anion Gap 11 (5-20) BUN 18 (7-22) mg/dL Creatinine 1.0 (0.70-1.50) mg/dL Estimated GFR > 60 (>60 ml/min/1.73m(2)) BUN/Creatinine Ratio 18.00 (6-20) Glucose 118 H (78-110) mg/dL Mean Blood Glucose mg/dL Hemoglobin A1c (4.2-6.0) % Calculated Osmolality 272.0 (267-292) mOsm/kg Calcium 9.5 (8.7-10.7) mg/dL Magnesium 1.6 (1.6-2.4) mg/dL Total Bilirubin 1.0 (0.3-1.2) mg/dL AST 24 (21-57) IU/L ALT 39 (21-72) IU/L Alkaline Phosphatase 97 (38-126) IU/L Troponin I < 0.012 (< 0.040) ng/mL Total Protein 6.8 (6.1-8.0) g/dL Albumin 3.9 (3.5-4.8) g/dL Globulin 2.9 (2.50-4.10) g/dL Albumin/Globulin Ratio 1.30 (1.3-2.0) mg/g Vitamin B12 (239-931) pg/mL Vitamin D 25-Hydroxy (30-100) NG/ML Serum Folate (2.76-20.0) NG/ML TSH (0.2700-4.2000) uIU/mL Free T4 (0.93-1.71) ng/dL Ur Collection Type Urine Color (Y) Urine Clarity (CLEAR) Urine pH (5.0-8.5) Ur Specific [place] (1.005-1.030) Urine Protein (NEG) mg/dl Urine Glucose (UA) (NEG) mg/dL Urine Ketones (NEG) Urine Occult Blood (NEG) Urine Nitrate (NEG) Urine Bilirubin (NEG) Urine Urobilinogen (0.2) EU/dL Ur Leukocyte Esterase (NEG) Blood Type Antibody Screen Crossmatch 10/19/16 10/19/16 10/19/16 Range/Units 04:11 04:11 04:30 WBC 11.25 H (4.8-10.8) 10^3/uL RBC 2.62 L (4.70-6.10) 10^6/uL Hgb 8.0 L (14.0-18.0) g/dL Hct 23.9 L (42.0-52.0) % MCV 91.2 H (80-90) FL MCH 30.5 (27-31) PG MCHC 33.5 (33-37) g/dL RDW Std Deviation 46.6 (39-50) fL RDW Coeff of [place] 14.7 H (11.5-14.5) % Plt Count 130 L (140-350) 10*3/uL MPV 9.9 (7.4-12.2) FL Immature Gran % (Auto) 0.3 (0-5) % Neut % (Auto) 73.1 (50-80) % Lymph % (Auto) 13.8 (10-50) % [place] % (Auto) 9.6 (5-15) % Eos % (Auto) 2.8 (0-8) % Baso % (Auto) 0.4 (0-1) % Immature Gran # (Auto) 0.03 10*3/UL Neut # (Auto) 8.23 10*3/UL Lymph # (Auto) 1.55 10*3/uL [place] # (Auto) 1.08 H (0.3-0.8) 10*3/UL Eos # (Auto) 0.31 10*3/UL Baso # (Auto) 0.05 10*3/UL WBC Morphology Comment Normal morphology (NORM) Plt Morphology Comment Normal morphology (NORM) RBC Morph Comment Normal morphology (NORM) PT (9.7-11.4) secs INR (0.00-5.90) N/A Sodium 128 L (135-145) meq/L Potassium 4.4 (3.8-5.2) meq/L Chloride 96 L (98-112) meq/L Carbon Dioxide 25 (23-33) meq/L Anion Gap 7 (5-20) BUN 15 (7-22) mg/dL Creatinine 0.9 (0.70-1.50) mg/dL Estimated GFR > 60 (>60 ml/min/1.73m(2)) BUN/Creatinine Ratio 16.66 (6-20) Glucose 116 H (78-110) mg/dL Mean Blood Glucose mg/dL Hemoglobin A1c (4.2-6.0) % Calculated Osmolality 267.0 (267-292) mOsm/kg Calcium 9.0 (8.7-10.7) mg/dL Magnesium (1.6-2.4) mg/dL Total Bilirubin (0.3-1.2) mg/dL AST (21-57) IU/L ALT (21-72) IU/L Alkaline Phosphatase (38-126) IU/L Troponin I (< 0.040) ng/mL Total Protein (6.1-8.0) g/dL Albumin (3.5-4.8) g/dL Globulin (2.50-4.10) g/dL Albumin/Globulin Ratio (1.3-2.0) mg/g Vitamin B12 (239-931) pg/mL Vitamin D 25-Hydroxy (30-100) NG/ML Serum Folate (2.76-20.0) NG/ML TSH (0.2700-4.2000) uIU/mL Free T4 (0.93-1.71) ng/dL Ur Collection Type Clean catch urine Urine Color Yellow (Y) Urine Clarity Clear (CLEAR) Urine pH 6.0 (5.0-8.5) Ur Specific [place] 1.015 (1.005-1.030) Urine Protein Negative (NEG) mg/dl Urine Glucose (UA) Negative (NEG) mg/dL Urine Ketones Negative (NEG) Urine Occult Blood Negative (NEG) Urine Nitrate Negative (NEG) Urine Bilirubin Negative (NEG) Urine Urobilinogen 0.2 (0.2) EU/dL Ur Leukocyte Esterase Negative (NEG) Blood Type Antibody Screen Crossmatch 10/19/16 10/19/16 10/19/16 Range/Units 08:45 12:41 13:46 WBC 13.33 H (4.8-10.8) 10^3/uL RBC 3.10 L (4.70-6.10) 10^6/uL Hgb 9.4 L (14.0-18.0) g/dL Hct 28.3 L (42.0-52.0) % MCV 91.3 H (80-90) FL MCH 30.3 (27-31) PG MCHC 33.2 (33-37) g/dL RDW Std Deviation 48.1 (39-50) fL RDW Coeff of [place] 14.9 H (11.5-14.5) % Plt Count 124 L (140-350) 10*3/uL MPV 9.3 (7.4-12.2) FL Immature Gran % (Auto) 0.2 (0-5) % Neut % (Auto) 90.8 H (50-80) % Lymph % (Auto) 6.6 L (10-50) % [place] % (Auto) 2.0 L (5-15) % Eos % (Auto) 0.2 (0-8) % Baso % (Auto) 0.2 (0-1) % Immature Gran # (Auto) 0.03 10*3/UL Neut # (Auto) 12.12 10*3/UL Lymph # (Auto) 0.88 10*3/uL [place] # (Auto) 0.26 L (0.3-0.8) 10*3/UL Eos # (Auto) 0.02 10*3/UL Baso # (Auto) 0.02 10*3/UL WBC Morphology Comment See comments (NORM) Plt Morphology Comment Normal morphology (NORM) RBC Morph Comment Normal morphology (NORM) PT (9.7-11.4) secs INR (0.00-5.90) N/A Sodium 129 L (135-145) meq/L Potassium 5.2 (3.8-5.2) meq/L Chloride 97 L (98-112) meq/L Carbon Dioxide 22 L (23-33) meq/L Anion Gap 10 (5-20) BUN 15 (7-22) mg/dL Creatinine 0.9 (0.70-1.50) mg/dL Estimated GFR > 60 (>60 ml/min/1.73m(2)) BUN/Creatinine Ratio 16.66 (6-20) Glucose 129 H (78-110) mg/dL Mean Blood Glucose mg/dL Hemoglobin A1c (4.2-6.0) % Calculated Osmolality 270.0 (267-292) mOsm/kg Calcium 9.3 (8.7-10.7) mg/dL Magnesium (1.6-2.4) mg/dL Total Bilirubin 1.0 (0.3-1.2) mg/dL AST 19 L (21-57) IU/L ALT 37 (21-72) IU/L Alkaline Phosphatase 77 (38-126) IU/L Troponin I (< 0.040) ng/mL Total Protein 6.3 (6.1-8.0) g/dL Albumin 3.6 (3.5-4.8) g/dL Globulin 2.7 (2.50-4.10) g/dL Albumin/Globulin Ratio 1.30 (1.3-2.0) mg/g Vitamin B12 (239-931) pg/mL Vitamin D 25-Hydroxy (30-100) NG/ML Serum Folate (2.76-20.0) NG/ML TSH (0.2700-4.2000) uIU/mL Free T4 (0.93-1.71) ng/dL Ur Collection Type Urine Color (Y) Urine Clarity (CLEAR) Urine pH (5.0-8.5) Ur Specific [place] (1.005-1.030) Urine Protein (NEG) mg/dl Urine Glucose (UA) (NEG) mg/dL Urine Ketones (NEG) Urine Occult Blood (NEG) Urine Nitrate (NEG) Urine Bilirubin (NEG) Urine Urobilinogen (0.2) EU/dL Ur Leukocyte Esterase (NEG) Blood Type O POSITIVE Antibody Screen Negative Crossmatch See Detail 10/20/16 10/20/16 10/20/16 Range/Units 03:53 03:53 04:30 WBC 16.12 H (4.8-10.8) 10^3/uL RBC 2.88 L (4.70-6.10) 10^6/uL Hgb 8.6 L (14.0-18.0) g/dL Hct 25.8 L (42.0-52.0) % MCV 89.6 (80-90) FL MCH 29.9 (27-31) PG MCHC 33.3 (33-37) g/dL RDW Std Deviation 46.7 (39-50) fL RDW Coeff of [place] 14.8 H (11.5-14.5) % Plt Count 103 L (140-350) 10*3/uL MPV 10.3 (7.4-12.2) FL Immature Gran % (Auto) 0.4 (0-5) % Neut % (Auto) 81.0 H (50-80) % Lymph % (Auto) 8.8 L (10-50) % [place] % (Auto) 9.6 (5-15) % Eos % (Auto) 0.1 (0-8) % Baso % (Auto) 0.1 (0-1) % Immature Gran # (Auto) 0.07 10*3/UL Neut # (Auto) 13.06 10*3/UL Lymph # (Auto) 1.42 10*3/uL [place] # (Auto) 1.55 H (0.3-0.8) 10*3/UL Eos # (Auto) 0.01 10*3/UL Baso # (Auto) 0.01 10*3/UL WBC Morphology Comment Normal morphology (NORM) Plt Morphology Comment Normal morphology (NORM) RBC Morph Comment Normal morphology (NORM) PT (9.7-11.4) secs INR (0.00-5.90) N/A Sodium 130 L (135-145) meq/L Potassium 4.4 (3.8-5.2) meq/L Chloride 98 (98-112) meq/L Carbon Dioxide 23 (23-33) meq/L Anion Gap 9 (5-20) BUN 18 (7-22) mg/dL Creatinine 0.8 (0.70-1.50) mg/dL Estimated GFR > 60 (>60 ml/min/1.73m(2)) BUN/Creatinine Ratio 22.50 H (6-20) Glucose 165 H (78-110) mg/dL Mean Blood Glucose mg/dL Hemoglobin A1c (4.2-6.0) % Calculated Osmolality 275.0 (267-292) mOsm/kg Calcium 8.9 (8.7-10.7) mg/dL Magnesium (1.6-2.4) mg/dL Total Bilirubin (0.3-1.2) mg/dL AST (21-57) IU/L ALT (21-72) IU/L Alkaline Phosphatase (38-126) IU/L Troponin I < 0.012 (< 0.040) ng/mL Total Protein (6.1-8.0) g/dL Albumin (3.5-4.8) g/dL Globulin (2.50-4.10) g/dL Albumin/Globulin Ratio (1.3-2.0) mg/g Vitamin B12 (239-931) pg/mL Vitamin D 25-Hydroxy (30-100) NG/ML Serum Folate (2.76-20.0) NG/ML TSH (0.2700-4.2000) uIU/mL Free T4 (0.93-1.71) ng/dL Ur Collection Type Urine Color (Y) Urine Clarity (CLEAR) Urine pH (5.0-8.5) Ur Specific [place] (1.005-1.030) Urine Protein (NEG) mg/dl Urine Glucose (UA) (NEG) mg/dL Urine Ketones (NEG) Urine Occult Blood (NEG) Urine Nitrate (NEG) Urine Bilirubin (NEG) Urine Urobilinogen (0.2) EU/dL Ur Leukocyte Esterase (NEG) Blood Type Antibody Screen Crossmatch 10/20/16 10/20/16 10/21/16 Range/Units 04:30 04:30 04:30 WBC (4.8-10.8) 10^3/uL RBC (4.70-6.10) 10^6/uL Hgb (14.0-18.0) g/dL Hct (42.0-52.0) % MCV (80-90) FL MCH (27-31) PG MCHC (33-37) g/dL RDW Std Deviation (39-50) fL RDW Coeff of [place] (11.5-14.5) % Plt Count (140-350) 10*3/uL MPV (7.4-12.2) FL Immature Gran % (Auto) (0-5) % Neut % (Auto) (50-80) % Lymph % (Auto) (10-50) % [place] % (Auto) (5-15) % Eos % (Auto) (0-8) % Baso % (Auto) (0-1) % Immature Gran # (Auto) 10*3/UL Neut # (Auto) 10*3/UL Lymph # (Auto) 10*3/uL [place] # (Auto) (0.3-0.8) 10*3/UL Eos # (Auto) 10*3/UL Baso # (Auto) 10*3/UL WBC Morphology Comment (NORM) Plt Morphology Comment (NORM) RBC Morph Comment (NORM) PT (9.7-11.4) secs INR (0.00-5.90) N/A Sodium 128 L (135-145) meq/L Potassium 4.5 (3.8-5.2) meq/L Chloride 96 L (98-112) meq/L Carbon Dioxide 24 (23-33) meq/L Anion Gap 8 (5-20) BUN 22 (7-22) mg/dL Creatinine 0.9 (0.70-1.50) mg/dL Estimated GFR > 60 (>60 ml/min/1.73m(2)) BUN/Creatinine Ratio 24.44 H (6-20) Glucose 106 (78-110) mg/dL Mean Blood Glucose 92.488 mg/dL Hemoglobin A1c 5.36 (4.2-6.0) % Calculated Osmolality 268.0 (267-292) mOsm/kg Calcium 8.8 (8.7-10.7) mg/dL Magnesium (1.6-2.4) mg/dL Total Bilirubin (0.3-1.2) mg/dL AST (21-57) IU/L ALT (21-72) IU/L Alkaline Phosphatase (38-126) IU/L Troponin I (< 0.040) ng/mL Total Protein (6.1-8.0) g/dL Albumin (3.5-4.8) g/dL Globulin (2.50-4.10) g/dL Albumin/Globulin Ratio (1.3-2.0) mg/g Vitamin B12 (239-931) pg/mL Vitamin D 25-Hydroxy (30-100) NG/ML Serum Folate (2.76-20.0) NG/ML TSH 0.249 L (0.2700-4.2000) uIU/mL Free T4 1.61 (0.93-1.71) ng/dL Ur Collection Type Urine Color (Y) Urine Clarity (CLEAR) Urine pH (5.0-8.5) Ur Specific [place] (1.005-1.030) Urine Protein (NEG) mg/dl Urine Glucose (UA) (NEG) mg/dL Urine Ketones (NEG) Urine Occult Blood (NEG) Urine Nitrate (NEG) Urine Bilirubin (NEG) Urine Urobilinogen (0.2) EU/dL Ur Leukocyte Esterase (NEG) Blood Type Antibody Screen Crossmatch 10/21/16 10/22/16 10/22/16 Range/Units 04:30 05:10 05:10 WBC 14.42 H 14.42 H (4.8-10.8) 10^3/uL RBC 2.39 L 3.29 L (4.70-6.10) 10^6/uL Hgb 7.2 L 10.0 L (14.0-18.0) g/dL Hct 21.7 L 29.7 L (42.0-52.0) % MCV 90.8 H 90.3 H (80-90) FL MCH 30.1 30.4 (27-31) PG MCHC 33.2 33.7 (33-37) g/dL RDW Std Deviation 46.9 46.6 (39-50) fL RDW Coeff of [place] 14.9 H 14.7 H (11.5-14.5) % Plt Count 102 L 129 L (140-350) 10*3/uL MPV 9.8 9.9 (7.4-12.2) FL Immature Gran % (Auto) 0.4 0.5 (0-5) % Neut % (Auto) 72.1 74.1 (50-80) % Lymph % (Auto) 13.7 11.7 (10-50) % [place] % (Auto) 11.4 12.3 (5-15) % Eos % (Auto) 2.3 1.3 (0-8) % Baso % (Auto) 0.1 0.1 (0-1) % Immature Gran # (Auto) 0.06 0.07 10*3/UL Neut # (Auto) 10.39 10.68 10*3/UL Lymph # (Auto) 1.97 1.68 10*3/uL [place] # (Auto) 1.65 H 1.78 H (0.3-0.8) 10*3/UL Eos # (Auto) 0.33 0.19 10*3/UL Baso # (Auto) 0.02 0.02 10*3/UL WBC Morphology Comment Normal morphology Normal morphology (NORM) Plt Morphology Comment Normal morphology Normal morphology (NORM) RBC Morph Comment See comments Normal morphology (NORM) PT (9.7-11.4) secs INR (0.00-5.90) N/A Sodium 129 L (135-145) meq/L Potassium 4.1 (3.8-5.2) meq/L Chloride 94 L (98-112) meq/L Carbon Dioxide 25 (23-33) meq/L Anion Gap 10 (5-20) BUN 17 (7-22) mg/dL Creatinine 0.8 (0.70-1.50) mg/dL Estimated GFR > 60 (>60 ml/min/1.73m(2)) BUN/Creatinine Ratio 21.25 H (6-20) Glucose 102 (78-110) mg/dL Mean Blood Glucose mg/dL Hemoglobin A1c (4.2-6.0) % Calculated Osmolality 269.0 (267-292) mOsm/kg Calcium 9.4 (8.7-10.7) mg/dL Magnesium (1.6-2.4) mg/dL Total Bilirubin (0.3-1.2) mg/dL AST (21-57) IU/L ALT (21-72) IU/L Alkaline Phosphatase (38-126) IU/L Troponin I (< 0.040) ng/mL Total Protein (6.1-8.0) g/dL Albumin (3.5-4.8) g/dL Globulin (2.50-4.10) g/dL Albumin/Globulin Ratio (1.3-2.0) mg/g Vitamin B12 (239-931) pg/mL Vitamin D 25-Hydroxy (30-100) NG/ML Serum Folate (2.76-20.0) NG/ML TSH (0.2700-4.2000) uIU/mL Free T4 (0.93-1.71) ng/dL Ur Collection Type Urine Color (Y) Urine Clarity (CLEAR) Urine pH (5.0-8.5) Ur Specific [place] (1.005-1.030) Urine Protein (NEG) mg/dl Urine Glucose (UA) (NEG) mg/dL Urine Ketones (NEG) Urine Occult Blood (NEG) Urine Nitrate (NEG) Urine Bilirubin (NEG) Urine Urobilinogen (0.2) EU/dL Ur Leukocyte Esterase (NEG) Blood Type Antibody Screen Crossmatch 10/23/16 10/23/16 10/23/16 Range/Units 04:15 04:15 17:41 WBC 13.56 H (4.8-10.8) 10^3/uL RBC 3.13 L (4.70-6.10) 10^6/uL Hgb 9.6 L (14.0-18.0) g/dL Hct 28.5 L (42.0-52.0) % MCV 91.1 H (80-90) FL MCH 30.7 (27-31) PG MCHC 33.7 (33-37) g/dL RDW Std Deviation 46.5 (39-50) fL RDW Coeff of [place] 14.7 H (11.5-14.5) % Plt Count 149 (140-350) 10*3/uL MPV 9.7 (7.4-12.2) FL Immature Gran % (Auto) (0-5) % Neut % (Auto) (50-80) % Lymph % (Auto) (10-50) % [place] % (Auto) (5-15) % Eos % (Auto) (0-8) % Baso % (Auto) (0-1) % Immature Gran # (Auto) 10*3/UL Neut # (Auto) 10*3/UL Lymph # (Auto) 10*3/uL [place] # (Auto) (0.3-0.8) 10*3/UL Eos # (Auto) 10*3/UL Baso # (Auto) 10*3/UL WBC Morphology Comment (NORM) Plt Morphology Comment (NORM) RBC Morph Comment (NORM) PT (9.7-11.4) secs INR (0.00-5.90) N/A Sodium 133 L (135-145) meq/L Potassium 3.6 L (3.8-5.2) meq/L Chloride 96 L (98-112) meq/L Carbon Dioxide 25 (23-33) meq/L Anion Gap 12 (5-20) BUN 22 (7-22) mg/dL Creatinine 0.8 (0.70-1.50) mg/dL Estimated GFR > 60 (>60 ml/min/1.73m(2)) BUN/Creatinine Ratio 27.50 H (6-20) Glucose 153 H (78-110) mg/dL Mean Blood Glucose mg/dL Hemoglobin A1c (4.2-6.0) % Calculated Osmolality 281.0 (267-292) mOsm/kg Calcium 9.1 (8.7-10.7) mg/dL Magnesium 1.8 (1.6-2.4) mg/dL Total Bilirubin 1.0 (0.3-1.2) mg/dL AST 29 (21-57) IU/L ALT 36 (21-72) IU/L Alkaline Phosphatase 75 (38-126) IU/L Troponin I (< 0.040) ng/mL Total Protein 5.9 L (6.1-8.0) g/dL Albumin 3.1 L (3.5-4.8) g/dL Globulin 2.8 (2.50-4.10) g/dL Albumin/Globulin Ratio 1.10 L (1.3-2.0) mg/g Vitamin B12 617 (239-931) pg/mL Vitamin D 25-Hydroxy 29.1 L (30-100) NG/ML Serum Folate 19.0 (2.76-20.0) NG/ML TSH (0.2700-4.2000) uIU/mL Free T4 (0.93-1.71) ng/dL Ur Collection Type Urine Color (Y) Urine Clarity (CLEAR) Urine pH (5.0-8.5) Ur Specific [place] (1.005-1.030) Urine Protein (NEG) mg/dl Urine Glucose (UA) (NEG) mg/dL Urine Ketones (NEG) Urine Occult Blood (NEG) Urine Nitrate (NEG) Urine Bilirubin (NEG) Urine Urobilinogen (0.2) EU/dL Ur Leukocyte Esterase (NEG) Blood Type Antibody Screen Crossmatch 10/24/16 10/24/16 10/24/16 Range/Units 03:53 03:53 09:42 WBC 10.69 (4.8-10.8) 10^3/uL RBC 2.60 L (4.70-6.10) 10^6/uL Hgb 8.0 L (14.0-18.0) g/dL Hct 24.2 L (42.0-52.0) % MCV 93.1 H (80-90) FL MCH 30.8 (27-31) PG MCHC 33.1 (33-37) g/dL RDW Std Deviation 47.5 (39-50) fL RDW Coeff of [place] 14.7 H (11.5-14.5) % Plt Count 171 (140-350) 10*3/uL MPV 9.5 (7.4-12.2) FL Immature Gran % (Auto) 0.6 (0-5) % Neut % (Auto) 72.9 (50-80) % Lymph % (Auto) 13.1 (10-50) % [place] % (Auto) 12.0 (5-15) % Eos % (Auto) 1.2 (0-8) % Baso % (Auto) 0.2 (0-1) % Immature Gran # (Auto) 0.06 10*3/UL Neut # (Auto) 7.80 10*3/UL Lymph # (Auto) 1.40 10*3/uL [place] # (Auto) 1.28 H (0.3-0.8) 10*3/UL Eos # (Auto) 0.13 10*3/UL Baso # (Auto) 0.02 10*3/UL WBC Morphology Comment Normal morphology (NORM) Plt Morphology Comment Normal morphology (NORM) RBC Morph Comment Normal morphology (NORM) PT (9.7-11.4) secs INR (0.00-5.90) N/A Sodium 135 (135-145) meq/L Potassium 3.8 (3.8-5.2) meq/L Chloride 101 (98-112) meq/L Carbon Dioxide 25 (23-33) meq/L Anion Gap 9 (5-20) BUN 22 (7-22) mg/dL Creatinine 0.8 (0.70-1.50) mg/dL Estimated GFR > 60 (>60 ml/min/1.73m(2)) BUN/Creatinine Ratio 27.50 H (6-20) Glucose 128 H (78-110) mg/dL Mean Blood Glucose mg/dL Hemoglobin A1c (4.2-6.0) % Calculated Osmolality 284.0 (267-292) mOsm/kg Calcium 8.6 L (8.7-10.7) mg/dL Magnesium 2.2 (1.6-2.4) mg/dL Total Bilirubin 0.9 (0.3-1.2) mg/dL AST 23 (21-57) IU/L ALT 37 (21-72) IU/L Alkaline Phosphatase 73 (38-126) IU/L Troponin I (< 0.040) ng/mL Total Protein 5.5 L (6.1-8.0) g/dL Albumin 2.8 L (3.5-4.8) g/dL Globulin 2.7 (2.50-4.10) g/dL Albumin/Globulin Ratio 1.00 L (1.3-2.0) mg/g Vitamin B12 (239-931) pg/mL Vitamin D 25-Hydroxy (30-100) NG/ML Serum Folate (2.76-20.0) NG/ML TSH (0.2700-4.2000) uIU/mL Free T4 (0.93-1.71) ng/dL Ur Collection Type Urine Color (Y) Urine Clarity (CLEAR) Urine pH (5.0-8.5) Ur Specific [place] (1.005-1.030) Urine Protein (NEG) mg/dl Urine Glucose (UA) (NEG) mg/dL Urine Ketones (NEG) Urine Occult Blood (NEG) Urine Nitrate (NEG) Urine Bilirubin (NEG) Urine Urobilinogen (0.2) EU/dL Ur Leukocyte Esterase (NEG) Blood Type O POSITIVE Antibody Screen Negative Crossmatch See Detail 10/25/16 10/25/16 10/25/16 Range/Units 04:39 13:32 13:34 WBC 8.56 14.81 H (4.8-10.8) 10^3/uL RBC 3.00 L 3.19 L (4.70-6.10) 10^6/uL Hgb 9.0 L 9.9 L (14.0-18.0) g/dL Hct 27.2 L 29.4 L (42.0-52.0) % MCV 90.7 H 92.2 H (80-90) FL MCH 30.0 31.0 (27-31) PG MCHC 33.1 33.7 (33-37) g/dL RDW Std Deviation 48.2 49.7 (39-50) fL RDW Coeff of [place] 14.9 H 15.3 H (11.5-14.5) % Plt Count 176 213 (140-350) 10*3/uL MPV 9.4 9.7 (7.4-12.2) FL Immature Gran % (Auto) (0-5) % Neut % (Auto) (50-80) % Lymph % (Auto) (10-50) % [place] % (Auto) (5-15) % Eos % (Auto) (0-8) % Baso % (Auto) (0-1) % Immature Gran # (Auto) 10*3/UL Neut # (Auto) 10*3/UL Lymph # (Auto) 10*3/uL [place] # (Auto) (0.3-0.8) 10*3/UL Eos # (Auto) 10*3/UL Baso # (Auto) 10*3/UL WBC Morphology Comment (NORM) Plt Morphology Comment (NORM) RBC Morph Comment (NORM) PT 11.3 (9.7-11.4) secs INR 1.07 (0.00-5.90) N/A Sodium (135-145) meq/L Potassium (3.8-5.2) meq/L Chloride (98-112) meq/L Carbon Dioxide (23-33) meq/L Anion Gap (5-20) BUN (7-22) mg/dL Creatinine (0.70-1.50) mg/dL Estimated GFR (>60 ml/min/1.73m(2)) BUN/Creatinine Ratio (6-20) Glucose (78-110) mg/dL Mean Blood Glucose mg/dL Hemoglobin A1c (4.2-6.0) % Calculated Osmolality (267-292) mOsm/kg Calcium (8.7-10.7) mg/dL Magnesium (1.6-2.4) mg/dL Total Bilirubin (0.3-1.2) mg/dL AST (21-57) IU/L ALT (21-72) IU/L Alkaline Phosphatase (38-126) IU/L Troponin I (< 0.040) ng/mL Total Protein (6.1-8.0) g/dL Albumin (3.5-4.8) g/dL Globulin (2.50-4.10) g/dL Albumin/Globulin Ratio (1.3-2.0) mg/g Vitamin B12 (239-931) pg/mL Vitamin D 25-Hydroxy (30-100) NG/ML Serum Folate (2.76-20.0) NG/ML TSH (0.2700-4.2000) uIU/mL Free T4 (0.93-1.71) ng/dL Ur Collection Type Urine Color (Y) Urine Clarity (CLEAR) Urine pH (5.0-8.5) Ur Specific [place] (1.005-1.030) Urine Protein (NEG) mg/dl Urine Glucose (UA) (NEG) mg/dL Urine Ketones (NEG) Urine Occult Blood (NEG) Urine Nitrate (NEG) Urine Bilirubin (NEG) Urine Urobilinogen (0.2) EU/dL Ur Leukocyte Esterase (NEG) Blood Type Antibody Screen Crossmatch 10/26/16 10/26/16 10/27/16 Range/Units 05:00 05:11 04:02 WBC 10.47 10.97 H (4.8-10.8) 10^3/uL RBC 2.87 L 2.84 L (4.70-6.10) 10^6/uL Hgb 8.7 L 8.7 L (14.0-18.0) g/dL Hct 26.4 L 26.0 L (42.0-52.0) % MCV 92.0 H 91.5 H (80-90) FL MCH 30.3 30.6 (27-31) PG MCHC 33.0 33.5 (33-37) g/dL RDW Std Deviation 47.5 47.2 (39-50) fL RDW Coeff of [place] 14.9 H 14.8 H (11.5-14.5) % Plt Count 211 240 (140-350) 10*3/uL MPV 9.6 9.0 (7.4-12.2) FL Immature Gran % (Auto) 1.0 (0-5) % Neut % (Auto) 74.8 (50-80) % Lymph % (Auto) 11.6 (10-50) % [place] % (Auto) 11.4 (5-15) % Eos % (Auto) 1.1 (0-8) % Baso % (Auto) 0.1 (0-1) % Immature Gran # (Auto) 0.10 10*3/UL Neut # (Auto) 7.85 10*3/UL Lymph # (Auto) 1.21 10*3/uL [place] # (Auto) 1.19 H (0.3-0.8) 10*3/UL Eos # (Auto) 0.11 10*3/UL Baso # (Auto) 0.01 10*3/UL WBC Morphology Comment Normal morphology (NORM) Plt Morphology Comment Normal morphology (NORM) RBC Morph Comment Normal morphology (NORM) PT (9.7-11.4) secs INR (0.00-5.90) N/A Sodium 135 (135-145) meq/L Potassium 4.0 (3.8-5.2) meq/L Chloride 105 (98-112) meq/L Carbon Dioxide 21 L (23-33) meq/L Anion Gap 9 (5-20) BUN 26 H (7-22) mg/dL Creatinine 0.7 (0.70-1.50) mg/dL Estimated GFR > 60 (>60 ml/min/1.73m(2)) BUN/Creatinine Ratio 37.14 H (6-20) Glucose 91 (78-110) mg/dL Mean Blood Glucose mg/dL Hemoglobin A1c (4.2-6.0) % Calculated Osmolality 284.0 (267-292) mOsm/kg Calcium 9.0 (8.7-10.7) mg/dL Magnesium (1.6-2.4) mg/dL Total Bilirubin 1.8 H (0.3-1.2) mg/dL AST 33 (21-57) IU/L ALT 39 (21-72) IU/L Alkaline Phosphatase 64 (38-126) IU/L Troponin I (< 0.040) ng/mL Total Protein 5.5 L (6.1-8.0) g/dL Albumin 2.8 L (3.5-4.8) g/dL Globulin 2.7 (2.50-4.10) g/dL Albumin/Globulin Ratio 1.00 L (1.3-2.0) mg/g Vitamin B12 (239-931) pg/mL Vitamin D 25-Hydroxy (30-100) NG/ML Serum Folate (2.76-20.0) NG/ML TSH (0.2700-4.2000) uIU/mL Free T4 (0.93-1.71) ng/dL Ur Collection Type Urine Color (Y) Urine Clarity (CLEAR) Urine pH (5.0-8.5) Ur Specific [place] (1.005-1.030) Urine Protein (NEG) mg/dl Urine Glucose (UA) (NEG) mg/dL Urine Ketones (NEG) Urine Occult Blood (NEG) Urine Nitrate (NEG) Urine Bilirubin (NEG) Urine Urobilinogen (0.2) EU/dL Ur Leukocyte Esterase (NEG) Blood Type Antibody Screen Crossmatch 10/29/16 10/29/16 10/30/16 Range/Units 04:25 04:25 04:30 WBC 15.17 H (4.8-10.8) 10^3/uL RBC 3.27 L (4.70-6.10) 10^6/uL Hgb 9.9 L (14.0-18.0) g/dL Hct 29.6 L (42.0-52.0) % MCV 90.5 H (80-90) FL MCH 30.3 (27-31) PG MCHC 33.4 (33-37) g/dL RDW Std Deviation 47.1 (39-50) fL RDW Coeff of [place] 14.8 H (11.5-14.5) % Plt Count 344 (140-350) 10*3/uL MPV 9.9 (7.4-12.2) FL Immature Gran % (Auto) (0-5) % Neut % (Auto) (50-80) % Lymph % (Auto) (10-50) % [place] % (Auto) (5-15) % Eos % (Auto) (0-8) % Baso % (Auto) (0-1) % Immature Gran # (Auto) 10*3/UL Neut # (Auto) 10*3/UL Lymph # (Auto) 10*3/uL [place] # (Auto) (0.3-0.8) 10*3/UL Eos # (Auto) 10*3/UL Baso # (Auto) 10*3/UL WBC Morphology Comment (NORM) Plt Morphology Comment (NORM) RBC Morph Comment (NORM) PT (9.7-11.4) secs INR (0.00-5.90) N/A Sodium 133 L 133 L (135-145) meq/L Potassium 3.7 L 3.7 L (3.8-5.2) meq/L Chloride 101 103 (98-112) meq/L Carbon Dioxide 21 L 21 L (23-33) meq/L Anion Gap 11 9 (5-20) BUN 20 18 (7-22) mg/dL Creatinine 0.7 0.7 (0.70-1.50) mg/dL Estimated GFR > 60 > 60 (>60 ml/min/1.73m(2)) BUN/Creatinine Ratio 28.57 H 25.71 H (6-20) Glucose 99 105 (78-110) mg/dL Mean Blood Glucose mg/dL Hemoglobin A1c (4.2-6.0) % Calculated Osmolality 278.0 277.0 (267-292) mOsm/kg Calcium 9.3 9.1 (8.7-10.7) mg/dL Magnesium 1.4 L (1.6-2.4) mg/dL Total Bilirubin (0.3-1.2) mg/dL AST (21-57) IU/L ALT (21-72) IU/L Alkaline Phosphatase (38-126) IU/L Troponin I (< 0.040) ng/mL Total Protein (6.1-8.0) g/dL Albumin (3.5-4.8) g/dL Globulin (2.50-4.10) g/dL Albumin/Globulin Ratio (1.3-2.0) mg/g Vitamin B12 (239-931) pg/mL Vitamin D 25-Hydroxy (30-100) NG/ML Serum Folate (2.76-20.0) NG/ML TSH (0.2700-4.2000) uIU/mL Free T4 (0.93-1.71) ng/dL Ur Collection Type Urine Color (Y) Urine Clarity (CLEAR) Urine pH (5.0-8.5) Ur Specific [place] (1.005-1.030) Urine Protein (NEG) mg/dl Urine Glucose (UA) (NEG) mg/dL Urine Ketones (NEG) Urine Occult Blood (NEG) Urine Nitrate (NEG) Urine Bilirubin (NEG) Urine Urobilinogen (0.2) EU/dL Ur Leukocyte Esterase (NEG) Blood Type Antibody Screen Crossmatch 10/30/16 Range/Units 04:30 WBC (4.8-10.8) 10^3/uL RBC (4.70-6.10) 10^6/uL Hgb (14.0-18.0) g/dL Hct (42.0-52.0) % MCV (80-90) FL MCH (27-31) PG MCHC (33-37) g/dL RDW Std Deviation (39-50) fL RDW Coeff of [place] (11.5-14.5) % Plt Count (140-350) 10*3/uL MPV (7.4-12.2) FL Immature Gran % (Auto) (0-5) % Neut % (Auto) (50-80) % Lymph % (Auto) (10-50) % [place] % (Auto) (5-15) % Eos % (Auto) (0-8) % Baso % (Auto) (0-1) % Immature Gran # (Auto) 10*3/UL Neut # (Auto) 10*3/UL Lymph # (Auto) 10*3/uL [place] # (Auto) (0.3-0.8) 10*3/UL Eos # (Auto) 10*3/UL Baso # (Auto) 10*3/UL WBC Morphology Comment (NORM) Plt Morphology Comment (NORM) RBC Morph Comment (NORM) PT (9.7-11.4) secs INR (0.00-5.90) N/A Sodium (135-145) meq/L Potassium (3.8-5.2) meq/L Chloride (98-112) meq/L Carbon Dioxide (23-33) meq/L Anion Gap (5-20) BUN (7-22) mg/dL Creatinine (0.70-1.50) mg/dL Estimated GFR (>60 ml/min/1.73m(2)) BUN/Creatinine Ratio (6-20) Glucose (78-110) mg/dL Mean Blood Glucose 88.159 mg/dL Hemoglobin A1c 5.23 (4.2-6.0) % Calculated Osmolality (267-292) mOsm/kg Calcium (8.7-10.7) mg/dL Magnesium (1.6-2.4) mg/dL Total Bilirubin (0.3-1.2) mg/dL AST (21-57) IU/L ALT (21-72) IU/L Alkaline Phosphatase (38-126) IU/L Troponin I (< 0.040) ng/mL Total Protein (6.1-8.0) g/dL Albumin (3.5-4.8) g/dL Globulin (2.50-4.10) g/dL Albumin/Globulin Ratio (1.3-2.0) mg/g Vitamin B12 (239-931) pg/mL Vitamin D 25-Hydroxy (30-100) NG/ML Serum Folate (2.76-20.0) NG/ML TSH (0.2700-4.2000) uIU/mL Free T4 (0.93-1.71) ng/dL Ur Collection Type Urine Color (Y) Urine Clarity (CLEAR) Urine pH (5.0-8.5) Ur Specific [place] (1.005-1.030) Urine Protein (NEG) mg/dl Urine Glucose (UA) (NEG) mg/dL Urine Ketones (NEG) Urine Occult Blood (NEG) Urine Nitrate (NEG) Urine Bilirubin (NEG) Urine Urobilinogen (0.2) EU/dL Ur Leukocyte Esterase (NEG) Blood Type Antibody Screen Crossmatch most recent KUB: [address] [facility] [place] [id number] PH: DD: [phone] FAX: [phone] ~DIAGNOSTIC IMAGING REPORT~ Patient: Rigo Hodge : 1945 Sex: M Age: 71 Exam Name: XR ABDOMEN (KUB) FLAT 1VIEW Exam Date: 10/24/16 Report # : [id number] CPT Code: 38183 EMR/MR #: [id number] Ordering: JESUS ADAN Admiting: BARBRA DAMON MD. Primary: ANDRES SUÁREZ MD. Attending: BARBRA DAMON MD. Signed XR ABDOMEN (KUB) FLAT 1VIEW,10/24/2016 7:00 AM: Clinical History: Ileus Previous Exam: October 23, 2016 Findings: 2 views of the abdomen are obtained, and demonstrate slight interval improvement of the dilation of the right colon. There is multiple air-filled loops of small bowel as well as at this time. Degenerative changes are noted of the spine with levoscoliosis of the mid lumbar spine. No pathologic calcifications are seen. Impression: Mild interval improvement of the dilated at right hemicolon. There is still multiple air-filled loops of small bowel consistent with an ileus. Dictated By: 10/24/16 1111 LALY ALBERT MD. Signed By: 10/24/16 1118 LALY ALBERT MD. lower extremity DVT: [facility] [address] [facility] [place] [address] PH: DD: [phone] FAX: [phone] ~DIAGNOSTIC IMAGING REPORT~ Patient: Rigo Hodge : 1945 Sex: M Age: 71 Exam Name: US Up/Low Extremity Veins B/L Exam Date: 10/24/16 Report # : [id number] CPT Code: 81053 EMR/MR #: [id number] Ordering: JESUS ADAN Admiting: BARBRA DAMON MD. Primary: ANDRES SUÁREZ MD. Attending: BARBRA DAMON MD. Signed EXAM: US Duplex Bilateral Lower Extremity Veins CLINICAL HISTORY: Swelling. TECHNIQUE: Real-time ultrasound scan of the veins of the bilateral lower extremities with color Doppler flow, spectral waveform analysis and compression. COMPARISON: No relevant prior studies available. FINDINGS: Right deep veins: Unremarkable. No DVT in the right common femoral, femoral, proximal deep femoral or popliteal veins. The veins are compressible with normal color flow and augmentation. Right superficial veins: Unremarkable. No thrombus in the visualized right great saphenous vein. Left deep veins: Unremarkable. No DVT in the left common femoral, femoral, proximal deep femoral or popliteal veins. The veins are compressible with normal color flow and augmentation. Left superficial veins: Unremarkable. No thrombus in the visualized left great saphenous vein. Soft tissues: No acute findings. No popliteal cyst. IMPRESSION: No evidence of DVT in the lower extremities. Dictated By: Armin Koch MD Signed By: 10/24/16 0801 Armin Koch MD preoperative pelvis CT scan: [facility] [place] [address] PH: DD: [phone] FAX: [phone] ~DIAGNOSTIC IMAGING REPORT~ Patient: Rigo Hodge : 1945 Sex: M Age: 71 Exam Name: CT 3D Rendering w/Image Proc; CT Pelvis WO Contrast Exam Date: Report # : [id number] CPT Code: 22425; 86534 EMR/MR #: [id number] Ordering: Anita Henderson Admiting: BARBRA DAMON MD. Primary: ANDRES SUÁREZ MD. Attending: BARBRA DAMON MD. Signed CT Pelvis WO Contrast, CT 3D Rendering w/Image Proc,10/19/2016 7:00 AM: Clinical History: Right hip fracture. Previous Exam: None at this facility. Findings: Multiple helically acquired CT images are obtained through the pelvis without contrast. There is a slightly comminuted right intertrochanteric fracture. There is avulsion of the lesser trochanter with 2.6 cm of superior displacement of the avulsed fragment. Degenerative changes are noted of the hip joint. There is degenerative endplate changes noted and vacuum disc phenomenon at multiple levels. There is significant facet hypertrophy there is also a right-sided pars defect noted and there is grade 1 anterolisthesis of L5 on S1. There are laminectomies at the L3 and L4 levels. Peripheral vascular calcifications are noted. Impression: 1. Slightly comminuted intertrochanteric fracture of the right hip. 2. Slightly displaced right lesser trochanteric avulsion with 2.6 cm of superior displacement. Dictated By: 10/19/16 0919 LALY ALBERT MD. Signed By: 10/19/16 0931 LALY ALBERT MD. hip X-ray at or post surgery. [address] [facility]. [facility] [place] [address] PH: DD: [phone] FAX: [phone] ~DIAGNOSTIC IMAGING REPORT~ Patient: Rigo Hodge : 1945 Sex: M Age: 71 Exam Name: XR HIP COMPLETE MIN 2VW U/L Exam Date: 10/19/16 Report # : [id number] CPT Code: 66299 EMR/MR #: [id number] Ordering: Anita Hendesron Admiting: BARBRA DAMON MD. Primary: ANDRES SUÁREZ MD. Attending: BARBRA DAMON MD. Signed XR HIP COMPLETE MIN 2VW U/L,10/19/2016 6:26 PM: Clinical History: The projection internal fixation of the right hip. Previous Exam: None at this facility. Findings: AP and crosstable lateral views of the right hip demonstrate a new dynamic compression screw. There is near-anatomic alignment of the right intertrochanteric fracture. There is a stable avulsion of the lesser trochanter. Impression: Successful dynamic screw fixation of a right intertrochanteric fracture. Dictated By: 10/20/16 0835 LALY ALBERT MD. Signed By: 10/20/16 0847 LALY ALBERT MD. Patient Problems - Patient Problem List (1) Closed right hip fracture Current Visit: Yes Status: Acute Code(s): S72.001A - Fracture of unspecified part of neck of right femur, initial encounter for closed fracture Qualifiers: Encounter type: subsequent encounter Fracture healing: with routine healing Qualified Code(s): S72.001D - Fracture of unspecified part of neck of right femur, subsequent encounter for closed fracture with routine healing Category: Medical (2) Diabetes Current Visit: Yes Status: Acute Code(s): E11.9 - Type 2 diabetes mellitus without complications Qualifiers: Diabetes mellitus type: type 2 Diabetes mellitus complication status: without complication Diabetes mellitus watermaster insulin use: without mcfp use Qualified Code(s): E11.9 - Type 2 diabetes mellitus without complications Category: Medical (3) Hypertension Current Visit: Yes Status: Acute Code(s): I10 - Essential (primary) hypertension Qualifiers: Hypertension type: essential hypertension Qualified Code(s): I10 - Essential (primary) hypertension Category: Medical (4) Postoperative anemia Current Visit: Yes Status: Acute Code(s): D64.9 - Anemia, unspecified Category: Medical (5) Chronic hyponatremia Current Visit: Yes Status: Resolved Code(s): E87.1 - Hypo-osmolality and hyponatremia Category: Medical (6) Hypokalemia Current Visit: Yes Status: Resolved Code(s): E87.6 - Hypokalemia Category : Medical (7) Postoperative ileus Current Visit: Yes Status: Resolved Code(s): K91.89 - Other postprocedural complications and disorders of digestive system; K56.7 - Ileus, unspecified Category: Medical (8) Vitamin D deficiency Current Visit: Yes Status: Acute Code(s): E55.9 - Vitamin D deficiency, unspecified Category: Medical
[2016-10-31] MEDS ORDERED: MAGNESIUM OXIDE 400 MG TABLET PO SCH (07:00)
--- NOTE | 2016-10-31 12:34 | OT PM DAY ---
Diagnosis : Right Hip Fracture PM - Occupational Therapy S: The patient states that he is still having shoulder pain. He reports that this is about as bad as his leg has hurt since surgery. O: The patient was seen in his room. He completed sit to stand transfer with min assist and transferred approximately three feet to wheelchair where we awaited for nursing to take out his IV. The patient was then transferred downstairs for therapy. The patient performed a sit to stand transfer with min assist and transferred approximately 3-4 feet to edge of mat table. The patient performed therapeutic exercises below 90 degrees and internal/external rotation with a red theraband. The patient also completed heel/toe raises and some marching with his left lower extremity with a two pound weight. A: The patient will continue to benefit from therapy to increase his overall function and maintain transfers. We will continue to watch toe touch weight-bearing. P: Continue seeing patient BID during the week and one time per day over the weekend for upper extremity strengthening, ADLs, and overall functional mobility. MTDD
== END 2016-10-30 21:45 | disposition swing bed (61) | DRG 481 ==
LOC: MED/SURG 19:25 → OPS 10-19 12:56 → MED/SURG 10-19 19:32
PROVIDERS: ADMIT Internal Medicine; ATTEND Internal Medicine